=== PATIENT | male | born 1940 | race American Indian/Alaskan Native ===

== ENCOUNTER 2018-02-09 09:31 | Inpatient (IN) | payer MEDICARE, BC ==
[2018-02-09] MEDS ORDERED: Oxycodone/Acetaminophen 5/325 mg Tab PO STA (10:01)
--- NOTE | 2018-02-09 11:22 | ED PDOC ---
Arrival/HPI - General Chief Complaint: Lower Extremity Problem/Injury Time Seen by Provider: 02/09/18 09:39 Historian: Patient - History of Present Illness Narrative History of Present Illness (Text): 02/09/18 10:43 77 year old male, with past medical history of renal failure on hemodialysis (), presents to the Emergency department accompanied by daughter complaining of bilateral leg discomfort since today. Daughter states patient had his last dialysis on Monday and was scheduled for his next dialysis appointment on Monday. However, due to holidays and lack of availability, patient was rescheduled for dialysis today and tomorrow. Daughter states, patient did not receive his dialysis yet and has been feeling unwell since Monday. As per daughter, patient is mildly different from baseline and has been complaining of bilateral leg pain, prompting her to present patient to the ED for medical evaluation. Patient informs visiting Dr. Alves for bilateral lower extremity peripheral vascular disease. Patient denies any other associated somatic complaints. Patient denies any fever, chills, nausea, vomiting, diarrhea, abdominal pain, chest pain, shortness of breath, back pain, neck pain or any other complaints. Patient denies any recent changes to his medications. PMD: Dr. Wing Sole Molding Machine Operator: Dr. Palmer Analysis Specialist: Dr. Hinton Time/Duration: < week Symptom Onset: Gradual Symptom Course: Unchanged Activities at Onset: Light Context: Home Past Medical History - Provider Review Nursing Documentation Reviewed: Yes - Cardiac Hx Hypertension: Yes Hx Pacemaker: No - Neurological Hx Paralysis: No - Renal Hx Dialysis: Yes () - Hematological/Oncological Hx Blood Transfusions: Yes Hx Blood Transfusion Reaction: No - Musculoskeletal/Rheumatological Hx Musculoskeletal Disorders: Yes - Psychiatric Hx Emotional Abuse: No Hx Physical Abuse: No Hx Substance Use: No - Anesthesia Hx Anesthesia Reactions: No Hx Malignant Hyperthermia: No - Suicidal Assessment Feels Threatened In Home Enviroment: No Family/Social History - Physician Review Nursing Documentation Reviewed: Yes Family/Social History: Unknown Family HX Smoking Status: Never Smoked Hx Alcohol Use: Yes (OCC) Frequency of alcohol use: Socially Hx Substance Use: No Allergies/Home Meds Allergies/Adverse Reactions: Allergies No Known Allergies Allergy (Verified 02/09/18 09:55) Home Medications: Home Meds Medication Instructions Recorded Confirmed Amlodipine Besylate 10 mg PO DAILY 08/19/13 08/19/13 Aspirin [Aspir 81] 81 mg PO DAILY 08/19/13 08/19/13 Carvedilol 12.5 mg PO BID 08/19/13 08/20/13 Cinacalcet [Sensipar] 30 mg PO HS 08/19/13 08/20/13 Multivitamin9 [Triphrocaps] 1 sgl PO DAILY 08/19/13 08/20/13 Pioglitazone HCl 45 mg PO DAILY 08/19/13 08/20/13 Ramipril 5 mg PO DAILY 08/19/13 08/20/13 Sevelamer [Renagel] 800 mg PO TID 08/19/13 08/20/13 Atorvastatin [Lipitor] 40 mg PO DAILY 08/20/13 08/20/13 Calcitriol 0.25 mcg PO DAILY 08/20/13 08/20/13 Epoetin Jaxon [Procrit] 40,000 unit IJ SAT 08/20/13 08/20/13 Loratadine [Claritin Reditabs] 5 mg PO DAILY 08/20/13 08/20/13 Nicotine 21 mg/24 hr [Nicoderm Cq] 1 patch SAT 08/20/13 08/20/13 Quinine Sulfate 324 mg PO DAILY 08/20/13 08/20/13 Review of Systems - Physician Review All systems were reviewed & negative as marked: Yes - Review of Systems Constitutional: absent: Fevers Respiratory: absent: SOB, Cough Cardiovascular: absent: Chest Pain, GUERRA Gastrointestinal: absent: Abdominal Pain, Diarrhea, Nausea, Vomiting Musculoskeletal: Other (Bilateral leg discomfort). absent: Back Pain, Neck Pain Skin: absent: Rash Neurological: absent: Headache, Dizziness Psychiatric: absent: Anxiety Physical Exam Vital Signs Reviewed: Yes Vital Signs Temp Pulse Resp Pulse Ox 02/09/18 09:50 97.8 F 99 H 18 99 Temperature: Afebrile Blood Pressure: Normal Pulse: Tachycardic Respiratory Rate: Normal Appearance: Positive for: Well-Appearing, Non-Toxic, Comfortable Pain Distress: None Mental Status: Positive for: Alert and Oriented X 3 - Systems Exam Head: Present: Atraumatic, Normocephalic Pupils: Present: PERRL Extroacular Muscles: Present: EOMI Conjunctiva: Present: Normal Mouth: Present: Moist Mucous Membranes Neck: Present: Normal Range of Motion Respiratory/Chest: Present: Clear to Auscultation, Good Air Exchange. No: Respiratory Distress, Accessory Muscle Use Cardiovascular: Present: Regular Rate and Rhythm, Normal S1, S2. No: Murmurs Abdomen: No: Tenderness, Distention, Peritoneal Signs Back: Present: Normal Inspection Upper Extremity: Present: Other (Fistula noted to left arm with palpable thrill). No: Cyanosis, Edema Lower Extremity: Present: Edema (2+ pitting edema bilaterally. Shiny taut skin noted bilaterally consistent with peripheral vascular disease.), Other (healed grade 1 ulcer noted to medial proximal freeman. ) Neurological: Present: GCS=15, CN II-XII Intact, Speech Normal Skin: Present: Warm, Dry, Normal Color. No: Rashes Psychiatric: Present: Alert, Oriented x 3, Normal Insight, Normal Concentration Medical Decision Making ED Course and Treatment: 02/09/18 10:43 Impression: 77 year old male presents to the Emergency department to address missed dialysis and bilateral leg discomfort. Plan: -- VBG -- Labs -- Chest X-ray -- Oxycodone -- Toradol -- Blood Culture -- US lower extremity -- Reassess and disposition Prior Visits: Notes and results from previous visits were reviewed. Progress Notes: 02/09/18 12:34 Discussed case with nursing staff at the dialysis center, who are in process of faxing patient information. Nursing staff informs unsuccessful contact with caser up. Will inform family. 02/09/18 13:[address] Wing, who is aware and agrees with ED management plan, requests patient to be admitted under Dr. Sinha's service. 02/09/18 13:[address] Colon(covering for Dr. Sinha) who states she will speak to Dr. Forde(nephrology) and call back with an updated plan on accepting the admission. - RAD Interpretation Narrative RAD Interpretations (Text): 02/09/18 12:35 Chest X-ray reviewed by radiologist, shows: FINDINGS: LUNGS: Clear. PLEURA: No pneumothorax or pleural fluid seen. CARDIOVASCULAR: Aortic calcifications moderate cardiomegaly. External pacer or defibrillator device in place OSSEOUS STRUCTURES: No significant abnormalities. VISUALIZED UPPER ABDOMEN: Normal. OTHER FINDINGS: None. IMPRESSION: No active disease. Radiology Orders: 02/09/18 10:43 CHEST PORTABLE [RAD] Stat 02/09/18 10:45 DUPLEX LOWER EXTRM VEIN BILAT [US] Stat Contact Acid Plant Operator Helper: Radiologist - EKG Interpretation EKG Interpretation (Text): 02/09/18 10:45 EKG reviewed by me, shows NSR @88bpm. LVH. Inverted t waves v4-v6. Prolonged QT. Interpreted by ED Physician: Yes Type: 12 lead EKG - Medication Orders Current Medication Orders: Discontinued Medications Ketorolac Tromethamine (Toradol) 15 mg IVP STAT STA Stop: 02/09/18 10:49 - Scribe Statement The provider has reviewed the documentation as recorded by the Scribe Malia Wood. All medical record entries made by the Scribe were at my direction and personally dictated by me. I have reviewed the chart and agree that the record accurately reflects my personal performance of the history, physical exam, medical decision making, and the department course for this patient. I have also personally directed, reviewed, and agree with the discharge instructions and disposition. Disposition/Present on Arrival - Present on Arrival History of DVT/PE: No History of Uncontrolled Diabetes: No Urinary Catheter: No History of Decub. Ulcer: No History Surgical Site Infection Following: None - Disposition
[2018-02-09 11:34] LABS: BASO # 0.03 K/mm3 (0.0-2.0); BASO % 0.4 % (0.0-3.0); EOS # 0.1 (0.0-0.7); EOS % 1.5 % (1.5-5.0); GRAN # 5.03 (1.4-6.5); GRAN % 70.5 % (50.0-68.0); HEMOGLOBIN 11.9 g/dL (14.0-18.0); LYMPH # 1.2 (1.2-3.4); LYMPH % 16.4 % (22.0-35.0); MEAN CELL VOLUME 90.2 fl (80.0-105.0); MEAN CORPUSCULAR HEMOGLOBIN 31.6 pg (25.0-35.0); MEAN PLATELET VOLUME 10.3 fl (7.0-11.0); MONO # 0.8 (0.1-0.6); MONO % 11.2 % (1.0-6.0); RBC 3.77 10^6/uL (3.5-6.1); RED CELL DISTRIBUTION WIDTH 18.2 % (11.5-14.5); WHITE BLOOD COUNT 7.1 10^3/uL (4.5-11.0)
[2018-02-09 11:35] LABS: VENOUS BLOOD GAS BASE EXCESS 3.5 mmol/L (0.0-2.0); VENOUS BLOOD GAS PO2 41 mm/Hg (30-55)
[2018-02-09 11:47] LABS: INR 1.75; PARTIAL THROMBOPLASTIN TIME 31.2 Seconds (25.1-36.5); PROTHROMBIN TIME 20.4 SECONDS (9.4-12.5)
--- NOTE | 2018-02-09 12:30 | RAD ---
Date of service: 02/09/2018 PROCEDURE: CHEST RADIOGRAPH, 1 VIEW HISTORY: pre dialysis COMPARISON: None available. FINDINGS: LUNGS: Clear. PLEURA: No pneumothorax or pleural fluid seen. CARDIOVASCULAR: Aortic calcifications moderate cardiomegaly. External pacer or defibrillator device in place OSSEOUS STRUCTURES: No significant abnormalities. VISUALIZED UPPER ABDOMEN: Normal. OTHER FINDINGS: None. IMPRESSION: No active disease.
[2018-02-09 12:38] LABS: ALB/GLOB RATIO 1.1 (1.1-1.8); ALBUMIN 3.7 g/dL (3.0-4.8); CALCIUM 8.2 mg/dL (8.4-10.5)
[2018-02-09 12:46] LABS: TROPONIN I 0.03 ng/mL
[2018-02-09 19:25] VITALS: BMI 29.5
--- NOTE | 2018-02-10 07:34 | CARD ---
APPROVED REPORT Date of service: 02/09/2018 EKG Measurement Heart [id number] <Conclusion> Sinus rhythm with 1 PVC STTW changes c/w ischemia, new c/w ECG 08/20/13 IVCD LVH Prolonged QTc
[2018-02-10 10:07] LABS: BASO # 0.03 K/mm3 (0.0-2.0); BASO % 0.5 % (0.0-3.0); EOS # 0.1 (0.0-0.7); EOS % 2.1 % (1.5-5.0); GRAN # 4.11 (1.4-6.5); GRAN % 66.7 % (50.0-68.0); HEMOGLOBIN 11.6 g/dL (14.0-18.0); LYMPH % 15.9 % (22.0-35.0); MEAN CELL VOLUME 90.3 fl (80.0-105.0); MEAN CORPUSCULAR HEMOGLOBIN 31.2 pg (25.0-35.0); MEAN CORPUSCULAR HGB CONC 34.5 g/dl (31.0-37.0); MONO # 0.9 (0.1-0.6); MONO % 14.8 % (1.0-6.0); RBC 3.72 10^6/uL (3.5-6.1); RED CELL DISTRIBUTION WIDTH 18.1 % (11.5-14.5); WHITE BLOOD COUNT 6.2 10^3/uL (4.5-11.0)
[2018-02-10 10:57] LABS: CALCIUM 8.3 mg/dL (8.4-10.5)
[2018-02-10] MEDS ORDERED: QUININE SULFATE 324 MG PO SCH (11:30)
[2018-02-10] MEDS ORDERED: PIOGLITAZONE HCL 45 MG PO SCH (11:30)
[2018-02-10] MEDS ORDERED: CALCITRIOL 0.25 MCG PO SCH (11:30)
[2018-02-10] MEDS ORDERED: RAMIPRIL 5 MG PO SCH (11:30)
--- NOTE | 2018-02-10 21:05 | HP ---
DATE OF EXAM: 02/09/2018 HISTORY OF PRESENT ILLNESS: Mr. Caro is a 77-year-old male presented to the ED because he missed the hemodialysis at an outpatient center. Also complaining of left leg pain for 1 day. Doppler done in the ED of left lower extremity, preliminary result is negative for DVT. He also has peripheral arterial disease, sees Dr. Alves in the outpatient clinic. Denies any fever. No chest pain. No cough with expectoration. No mental status changes. Unable to ambulate because of the left flank pain. PAST MEDICAL HISTORY: Hypertension; end-stage renal disease, on hemodialysis; and peripheral vascular disease. PAST SURGICAL HISTORY: None. FAMILY HISTORY: Noncontributory. PERSONAL HISTORY: Never smoked. No history of alcohol abuse. SOCIAL HISTORY: Lives at home. ALLERGIES: NO KNOWN DRUG ALLERGIES. HOME MEDICATIONS: Amlodipine 10 mg daily, aspirin 81 mg daily, Coreg 12.5 mg p.o. b.i.d., Sensipar 30 mg p.o. at bedtime, Ramipril 5 mg daily, Renagel 800 mg p.o. t.i.d., Lipitor 40 mg daily, calcitriol 0.25 mg p.o. daily, nicotine patch and quinine sulfate 324 mg daily. REVIEW OF SYSTEMS: As per HPI. Rest of 12-point review of systems reviewed negative. PHYSICAL EXAMINATION: GENERAL: Comfortable in bed in no acute distress. VITAL SIGNS: Temperature 97.8, heart rate 99 per minute, respiratory rate 18 per minute, and oxygen saturation 99% on room air. HEENT: Mucosa pale. NECK: No lymphadenopathy. CHEST: Air entry present and equal bilaterally. No added sounds. CARDIOVASCULAR: S1 and S2 normal. No murmur. No gallop. ABDOMEN: Soft and nontender. No hepatosplenomegaly. EXTREMITIES: Left leg swelling present, 1+ edema, calf tenderness present. The right lower extremity, no edema. DIAGNOSTIC DATA: Chest x-ray, no active disease. EKG, normal sinus rhythm at 88 beats per minute. Duplex lower extremity preliminary, no DVT. LABORATORY DATA: White count 7.1, hemoglobin 11.9, hematocrit 34, and platelet count 268,000. Sodium 129, potassium 4, creatinine 8.3, calcium 8.2, and bilirubin 0.9. ASSESSMENT: 1. End-stage renal disease, on hemodialysis. 2. Anemia. 3. Hypertension. 4. Left leg swelling. PLAN: Doppler preliminary negative for DVT. We will give prophylactic doses of heparin 5000 b.i.d. for DVT prophylaxis. No signs of infection. He will be hemodialyzed today and discussed with the hemodialysis nurse. Discussed with Dr. Forde. Discussed with the ED attending. Lipitor 40 mg daily, aspirin 81 mg daily, Coreg 12.5 mg p.o. b.i.d., Sensipar 30 mg p.o. at bedtime, Claritin 5 mg daily, Actos 30 mg daily, Altace 5 mg daily, Renagel 800 mg p.o. t.i.d., and heparin 5000 b.i.d. for DVT prophylaxis. Radha Colon MD
--- NOTE | 2018-02-10 21:16 | PN ---
DATE: 02/10/2018 SUBJECTIVE: He is comfortable in bed, in no acute distress. Complaining of left leg pain. He is able to ambulate in the room, but has difficulty due to pain in the left leg. No fever. No cough with expectoration. No events overnight. He was hemodialyzed yesterday. PHYSICAL EXAMINATION: GENERAL: Comfortable in bed, in no acute distress. VITAL SIGNS: Temperature 98.3, heart rate 94 per minute, blood pressure 118/72, respiratory rate 20 per minute, and oxygen saturation 95% on room air. HEENT: Pallor positive. NECK: No lymphadenopathy. CHEST: Air entry present and equal bilaterally. No added sounds. CARDIOVASCULAR: S1 and S2 normal. No murmur. No gallop. ABDOMEN: Soft and nontender. No hepatosplenomegaly. EXTREMITIES: Left extremity edema present 1+ calf tenderness present. LABORATORY DATA: Sodium 134, potassium 3.9, creatinine 5.9, and calcium 8.3. White count 6.2, hemoglobin 11.6, hematocrit 33.6, and platelet 267,000. ASSESSMENT: 1. End-stage renal disease, on hemodialysis. 2. Anemia. 3. Left leg swelling. 4. Peripheral arterial disease. PLAN: Heparin 5000 subcutaneously b.i.d., preliminary negative for DVT in left leg. He was hemodialyzed yesterday also and today as per Dr. Forde's order. Continue aspirin 81 mg daily, Lipitor 40 mg daily, Norvasc 10 mg daily, Coreg 12.5 mg p.o. b.i.d., Sensipar 30 mg at bedtime, Claritin 5 mg daily, Renagel 800 mg p.o. t.i.d., Altace 5 mg daily, and Actos 15 mg daily. We will get TCU evaluation for gait improvement. Radha Colon MD MTDD
[2018-02-10] MEDS ORDERED: Levalbuterol 0.63 MG/3 ML Inhal Soln UD IH STA (21:18)
[2018-02-10 22:15] LABS: CALCIUM 7.7 mg/dL (8.4-10.5)
[2018-02-10 22:19] LABS: TROPONIN I 0.04 ng/mL
[2018-02-10 22:42] LABS: FREE T4 1.49 ng/dL (0.78-2.19)
[2018-02-11 00:30] VITALS: RESP 20
--- NOTE | 2018-02-11 09:40 | CP.PCM.PN ---
Subjective - Date & Time of Evaluation Date of Evaluation: 02/11/18 Time of Evaluation: 09:30 - Subjective Subjective: SUBJECTIVE: He is comfortable in bed, in no acute distress. Complaining of left leg pain. He is able to ambulate in the room, but has difficulty due to pain in the left leg. No fever. No cough with expectoration. No events overnight. He was hemodialyzed yesterday. Doppler prelim is negative for DVT. review of systems : as per subjective, rest 12 point review negative. PHYSICAL EXAMINATION: GENERAL: Comfortable in bed, in no acute distress. VITAL SIGNS: reviewed. HEENT: Pallor positive. NECK: No lymphadenopathy. CHEST: Air entry present and equal bilaterally. No added sounds. CARDIOVASCULAR: S1 and S2 normal. No murmur. No gallop. ABDOMEN: Soft and nontender. No hepatosplenomegaly. EXTREMITIES: Left extremity edema present 1+ , calf tenderness present. LABORATORY DATA: Sodium 134, potassium 3.9, creatinine 5.9, and calcium 8.3. White count 6.2, hemoglobin 11.6, hematocrit 33.6, and platelet 267,000. ASSESSMENT: 1. End-stage renal disease, on hemodialysis. 2. Anemia. 3. Left leg swelling. 4. Peripheral arterial disease. PLAN: Heparin 5000 subcutaneously b.i.d., preliminary negative for DVT in left leg. He was hemodialyzed yesterday . Continue aspirin 81 mg daily, Lipitor 40 mg daily, Norvasc 10 mg daily, Coreg 12.5 mg p.o. b.i.d., Sensipar 30 mg at bedtime, Claritin 5 mg daily, Renagel 800 mg p.o. t.i.d., Altace 5 mg daily, and Actos 15 mg daily. We will get TCU evaluation for gait improvement pending. Blood counts stable. lytes normal. Radha Colon MD Objective - Vital Signs/Intake and Output Vital Signs (last 24 hours): Temp Pulse Resp BP Pulse Ox 98.0 F 81 20 108/65 98 02/11/18 06:00 02/11/18 06:00 02/11/18 06:00 02/11/18 06:00 02/11/18 06:00 Intake and Output: 02/11/18 02/11/18 06:59 18:59 Intake Total 240 Balance 240 - Medications Medications: Current Medications Amlodipine Besylate (Norvasc) 10 mg PO DAILY [facility] Last Admin: 02/10/18 14:02 Dose: 10 mg Aspirin (Ecotrin) 81 mg PO DAILY [facility] Last Admin: 02/10/18 14:04 Dose: 81 mg Atorvastatin Calcium (Lipitor) 40 mg PO DAILY [facility] Last Admin: 02/10/18 14:03 Dose: 40 mg Calcitriol (Rocaltrol) 0.25 mcg PO DAILY [facility] Carvedilol (Coreg) 12.5 mg PO BID [facility] Last Admin: 02/10/18 17:39 Dose: 12.5 mg Cinacalcet (Sensipar) 30 mg PO HS [facility] Last Admin: 02/10/18 21:57 Dose: 30 mg Heparin Sodium (Porcine) (Heparin) 5,000 units SC Q12 [facility]; Protocol Last Admin: 02/10/18 21:57 Dose: 5,000 units Loratadine (Claritin) 5 mg PO DAILY [facility] Nicotine (Nicoderm Cq) 1 patch TD SAT [facility] Non-Formulary Medication (Quinine Sulfate [Quinine Sulfate]) 324 mg PO DAILY [facility] Pioglitazone HCl (Actos) 15 mg PO DAILY [facility] Ramipril (Altace) 5 mg PO DAILY [facility] Sevelamer HCl (Renagel) 800 mg PO TID [facility] Last Admin: 02/10/18 17:39 Dose: 800 mg Zolpidem Tartrate (Ambien) 5 mg PO HS PRN; Protocol PRN Reason: Insomnia Last Admin: 02/11/18 01:07 Dose: 5 mg - Labs Labs: 02/10/18 09:15 02/10/18 21:45 PT 20.4 SECONDS (9.4-12.5) H 02/09/18 11:20 INR 1.75 02/09/18 11:20 APTT 31.2 Seconds (25.1-36.5) 02/09/18 11:20
[2018-02-11] MEDS: QUININE SULFATE 324 MG PO SCH (09:51)
[2018-02-11] MEDS ORDERED: LORATADINE 5 MG PO SCH (10:00)
[2018-02-11] MEDS ORDERED: cefTRIAXone 1 gm 1 GM/100 ML BAG IVPB SCH (11:30)
[2018-02-11] MEDS ORDERED: Vancomycin 1gm in NS 250ml 1 GM/250 ML BAG IVPB STA (12:51)
--- NOTE | 2018-02-11 13:01 | CP.PCM.CON ---
<Endy Jarvis - Last Filed: 02/11/18 12:45> History of Present Illness - History of Present Illness History of Present Illness: Podiatry consult note for Dr. Cardenas 81 y/o M patient with PMH of ischemic heart disease, peripheral vascular disease and renal failure on hemodialysis seen and evaluated in the bedside for b/l LE edema. Patient states that he has the leg swelling since a month. He states that the size of the leg never change. He states that he follows up with for peripheral vascular disease in his LE. Patient denies any pain in his LE at this time. Patient denies any other pedal complaint at this time. He denies any recentF/N/V/C or SOB. PMH: peripheral vascular disease and renal failure on hemodialysis, ischemic heart disease. PSH: A-V fistula. Allergies: NKDA Social Hx: denies Smoking, EtOH use or illicite drug use Review of Systems - Review of Systems Review of Systems: As per HPI - Constitutional Constitutional: As Per HPI Past Patient History - Past Social History Smoking Status: Never Smoked - CARDIAC Hx Internal Defibrillator: Yes - PULMONARY Hx Respiratory Disorders: No - NEUROLOGICAL Hx Neurological Disorder: No - HEENT Hx HEENT Problems: No - RENAL Hx Chronic Kidney Disease: Yes Hx Dialysis: Yes - ENDOCRINE/METABOLIC Hx Endocrine Disorders: No - HEMATOLOGICAL/ONCOLOGICAL Hx Blood Disorders: No - INTEGUMENTARY Hx Dermatological Problems: No - MUSCULOSKELETAL/RHEUMATOLOGICAL Hx Musculoskeletal Disorders: No Hx Falls: No - GASTROINTESTINAL Hx Gastrointestinal Disorders: No - GENITOURINARY/GYNECOLOGICAL Hx Genitourinary Disorders: No - PSYCHIATRIC Hx Psychophysiologic Disorder: No - SURGICAL HISTORY Hx Surgeries: No - ANESTHESIA Hx Anesthesia Reactions: No Hx Malignant Hyperthermia: No Meds Allergies/Adverse Reactions: Allergies Allergy/AdvReac Type Severity Reaction Status Date / Time No Known Allergies Allergy Verified 02/09/18 09:55 - Medications Medications: Current Medications Amlodipine Besylate (Norvasc) 10 mg PO DAILY [facility] Last Admin: 02/11/18 09:45 Dose: 10 mg Aspirin (Ecotrin) 81 mg PO DAILY [facility] Last Admin: 02/11/18 09:45 Dose: 81 mg Atorvastatin Calcium (Lipitor) 40 mg PO DAILY [facility] Last Admin: 02/11/18 09:43 Dose: 40 mg Calcitriol (Rocaltrol) 0.25 mcg PO DAILY [facility] Last Admin: 02/11/18 09:43 Dose: 0.25 mcg Carvedilol (Coreg) 12.5 mg PO BID [facility] Last Admin: 02/11/18 09:44 Dose: 12.5 mg Cinacalcet (Sensipar) 30 mg PO HS [facility] Last Admin: 02/10/18 21:57 Dose: 30 mg Heparin Sodium (Porcine) (Heparin) 5,000 units SC Q12 [facility]; Protocol Last Admin: 02/11/18 09:47 Dose: 5,000 units Ceftriaxone Sodium (Rocephin 1 Gram Ivpb) 1 gm in 100 mls @ 100 mls/hr IVPB DAILY [facility]; Protocol Last Admin: 02/11/18 11:39 Dose: 100 mls/hr Loratadine (Claritin) 5 mg PO DAILY [facility] Last Admin: 02/11/18 09:44 Dose: 5 mg Nicotine (Nicoderm Cq) 1 patch TD SAT [facility] Non-Formulary Medication (Quinine Sulfate [Quinine Sulfate]) 324 mg PO DAILY [facility] Last Admin: 02/11/18 09:51 Dose: Not Given Pioglitazone HCl (Actos) 15 mg PO DAILY [facility] Last Admin: 02/11/18 09:43 Dose: 15 mg Ramipril (Altace) 5 mg PO DAILY [facility] Last Admin: 02/11/18 09:50 Dose: 5 mg Sevelamer HCl (Renagel) 800 mg PO TID [facility] Last Admin: 02/11/18 09:42 Dose: 800 mg Zolpidem Tartrate (Ambien) 5 mg PO HS PRN; Protocol PRN Reason: Insomnia Last Admin: 02/11/18 01:07 Dose: 5 mg Physical Exam - Constitutional Appears: Well, Non-toxic, No Acute Distress - Head Exam Head Exam: ATRAUMATIC, NORMOCEPHALIC - Extremities Exam Additional comments: Bilateral lower extremities exam VASC: faintly palpable pedal pulses bilaterally, Temp gradient warm to cool in b/l. Cap refill < 3 sec to all digits. +1 pitting edema noted to b/l LE up to the level of tibial tuberosity. No erythema noted. NEURO: Gross and protective sensations are intact DERM: +1 pitting edema noted to b/l LE up to the level of tibial tuberosity. No erythema noted. No clinical signs of active bacterial infection. Hypopigmented p ath around [id number] noted on the medial aspect of the Right leg. MSK: Mild pain on palpation of foot or legs bilaterally. Muscle power intact 5/5 to all groups b/l. Calf Squeeze doesn't elicit any pain b/l. - Neurological Exam Neurological exam: Alert, Oriented x3 - Psychiatric Exam Psychiatric exam: Normal Affect, Normal Mood Results - Vital Signs Recent Vital Signs: Last Vital Signs Temp 98.0 F 02/11/18 06:00 Pulse 85 02/11/18 10:00 Resp 20 02/11/18 06:00 BP 108/68 02/11/18 09:50 Pulse Ox 98 02/11/18 06:00 - Labs Result Diagrams: 02/10/18 09:15 02/10/18 21:45 Labs: Laboratory Results - last 24 hr 02/10/18 02/10/18 02/10/18 21:45 21:45 22:35 Sodium 132 Potassium 3.8 Chloride 92 L Carbon Dioxide 30 Anion Gap 13 BUN 27 H Creatinine 4.0 H Est GFR ( Amer) 18 Est GFR (Non-Af Amer) 15 Random Glucose 135 H Calcium 7.7 L Phosphorus 2.3 L Magnesium 2.0 2.1 Troponin I 0.04 D Free T4 1.49 TSH 3rd Generation 1.77 Assessment & Plan - Assessment and Plan (Free Text) Assessment: 77 y/o M patient patient seen and evaluated at the bedside for b/l LE edema 2ry to peripheral vascular disease. Plan: Patient seen and evaluated in the bedside with Dr. Cardenas Plan discussed with Dr. Cardenas Charts, labs and vitals reviewed; Afebrile, no leukocytosis GAYATRI/PVR; B/L popliteal, triforcation and tibial occlusive disease. (R: 0.80, L: 0.69) LE venous duplex; No signs of DVT Ordered Arterial Doppler b/l. Ordered Interventional vascular consult. B/L LE left undressed Podiatry will continue to follow up the patient while in house. Thank you for consulting podiatry service - Date & Time Date: 02/11/18 Time: 12:46 <Ayaan Cardenas - Last Filed: 02/12/18 10:17> Meds - Medications Medications: Current Medications Amlodipine Besylate (Norvasc) 10 mg PO DAILY [facility] Last Admin: 02/11/18 09:45 Dose: 10 mg Aspirin (Ecotrin) 81 mg PO DAILY [facility] Last Admin: 02/11/18 09:45 Dose: 81 mg Atorvastatin Calcium (Lipitor) 40 mg PO DAILY [facility] Last Admin: 02/11/18 09:43 Dose: 40 mg Calcitriol (Rocaltrol) 0.25 mcg PO DAILY [facility] Last Admin: 02/11/18 09:43 Dose: 0.25 mcg Carvedilol (Coreg) 12.5 mg PO BID [facility] Last Admin: 02/11/18 17:46 Dose: Not Given Cinacalcet (Sensipar) 30 mg PO HS [facility] Last Admin: 02/11/18 22:09 Dose: 30 mg Heparin Sodium (Porcine) (Heparin) 5,000 units SC Q12 [facility]; Protocol Last Admin: 02/11/18 22:09 Dose: 5,000 units Cefepime HCl (Maxipime 1gm) 1 gm in 100 mls @ 100 mls/hr IVPB Q24H [facility]; Protocol Stop: 02/20/18 13:01 Last Admin: 02/11/18 15:45 Dose: 100 mls/hr Loratadine (Claritin) 5 mg PO DAILY [facility] Last Admin: 02/11/18 09:44 Dose: 5 mg Multi-Ingredient Cream (Hydrocerin Cream) 0 ea TOP DAILY [facility] Nicotine (Nicoderm Cq) 1 patch TD SAT [facility] Non-Formulary Medication (Quinine Sulfate [Quinine Sulfate]) 324 mg PO DAILY [facility] Last Admin: 02/11/18 09:51 Dose: Not Given Pioglitazone HCl (Actos) 15 mg PO DAILY [facility] Last Admin: 02/11/18 09:43 Dose: 15 mg Ramipril (Altace) 5 mg PO DAILY [facility] Last Admin: 02/11/18 09:50 Dose: 5 mg Sevelamer HCl (Renagel) 800 mg PO TID [facility] Last Admin: 02/11/18 17:37 Dose: 800 mg Zolpidem Tartrate (Ambien) 5 mg PO HS PRN; Protocol PRN Reason: Insomnia Last Admin: 02/11/18 22:10 Dose: 5 mg Results - Vital Signs Recent Vital Signs: Last Vital Signs Temp 98 F 02/12/18 08:53 Pulse 79 02/12/18 08:53 Resp 20 02/12/18 08:53 BP 97/62 L 02/12/18 08:53 Pulse Ox 99 02/12/18 08:53 - Labs Result Diagrams: 02/10/18 09:15 02/10/18 21:45 Attending/Attestation - Attestation I have personally seen and examined this patient.: Yes I have fully participated in the care of the patient.: Yes I have reviewed all pertinent clinical information: Yes
[2018-02-11] MEDS ORDERED: Barium Sulfate Susp 2.1% w/v, 2.0% w/w 450 mL Bottle PO ONE (15:13)
[2018-02-11] MEDS: Cefepime 1gm in NS 100ml 1 GM/100 ML BAG IVPB SCH (15:45)
--- NOTE | 2018-02-11 20:26 | CON ---
DATE: 02/11/2018 The patient is in bed in #572, bed #2. CHIEF COMPLAINT: Left leg swelling and erythema times several days. HISTORY OF PRESENT ILLNESS: This is a 77-year-old male, who has hypertension; diabetes; chronic renal failure on hemodialysis on Tuesdays, and Saturdays; peripheral arterial disease; coronary artery disease; history of prostate cancer; history of anemia, who was admitted with diagnosis of left leg swelling and erythema x1 day duration. The patient denies any fevers, any chills. No nausea. No vomiting. No abdominal pain, diarrhea or constipation. No dysuria or frequency. REVIEW OF SYSTEMS: A 14-point review of systems is performed. PAST MEDICAL HISTORY: Significant for diabetes; hypertension; renal failure, on hemodialysis on Tuesdays, and Saturdays; anemia; prostate cancer; peripheral artery disease; and coronary artery disease. PAST SURGICAL HISTORY: Significant for cardiac catheterization with PCI, also with a pacemaker. The patient has had prostate seeding placed years ago and also with a left arm fistula. ALLERGIES: THE PATIENT HAS NO KNOWN ALLERGIES. MEDICATIONS AT HOME: Reviewed. PHYSICAL EXAMINATION: GENERAL: On exam, the patient is in bed. VITAL SIGNS: Temperature of 98, blood pressure is 108/60, respiratory rate of 18, heart rate of 85. HEENT: Unremarkable. NECK: Supple. LUNGS: Have decreased breath sounds. HEART: Normal S1, S2. ABDOMEN: Soft, nontender. No rebound. No guarding. No masses. EXTREMITIES: Examination of the left leg is warm to touch. There is edema, although both legs have edema, left leg appears to be more, and there is erythema and edema of the left leg, no break in the skin, no discharge. LABORATORY DATA: Laboratory examination reveals the patient's white count of 7.1, hemoglobin of 11, platelets of 268,000. Coagulation is noted. Chemistries reveal a BUN of 39, creatinine of 5.9. Troponin is 0.04. Chest x-ray is reported to be negative. Emergency room chart is reviewed. Dr. Colon's history and physical examination is noted. ASSESSMENT AND PLAN: A 77-year-old male with diabetes; hypertension; chronic renal failure, on hemodialysis on Tuesdays, and Saturdays; prostate cancer; peripheral arterial disease; coronary artery disease, now presenting with left leg cellulitis. We will treat the patient with vancomycin and Maxipime. Discontinue the ceftriaxone. We will also order a CT of the abdomen and pelvis to rule out any intra-abdominal pathology or pelvic pathology that may cause one-sided leg edema. The case was also discussed with the patient's on the phone extensively. We will make further recommendations upon availability of initial results. Pending pancultures and CT. Socrates Maldonado MD
[2018-02-12] MEDS ORDERED: Hydrocerin(120 gm) TOP SCH (10:00)
--- NOTE | 2018-02-12 10:26 | CP.PCM.PN ---
<Sudarshan Ramsey - Last Filed: 02/12/18 18:12> Subjective - Date & Time of Evaluation Date of Evaluation: 02/12/18 Time of Evaluation: 07:40 - Subjective Subjective: Progress Note for Dr. Sinha Service Patient seen and examined at bedside. No acute complaints this AM. Reports some shortness of breath when lying down, but still improved over presentation. Pending HD tomorrow, then discharge to [facility] for reconditioning (cannot go to TCU, as not inhouse dialysis pt). Objective - Vital Signs/Intake and Output Vital Signs (last 24 hours): Temp Pulse Resp BP Pulse Ox 98 F 79 20 97/62 L 99 02/12/18 08:53 02/12/18 08:53 02/12/18 08:53 02/12/18 08:53 02/12/18 08:53 Intake and Output: 02/12/18 02/12/18 06:59 18:59 Intake Total 0 Balance 0 - Medications Medications: Current Medications Amlodipine Besylate (Norvasc) 10 mg PO DAILY [facility] Last Admin: 02/11/18 09:45 Dose: 10 mg Aspirin (Ecotrin) 81 mg PO DAILY [facility] Last Admin: 02/11/18 09:45 Dose: 81 mg Atorvastatin Calcium (Lipitor) 40 mg PO DAILY [facility] Last Admin: 02/11/18 09:43 Dose: 40 mg Calcitriol (Rocaltrol) 0.25 mcg PO DAILY [facility] Last Admin: 02/11/18 09:43 Dose: 0.25 mcg Carvedilol (Coreg) 12.5 mg PO BID [facility] Last Admin: 02/11/18 17:46 Dose: Not Given Cinacalcet (Sensipar) 30 mg PO HS [facility] Last Admin: 02/11/18 22:09 Dose: 30 mg Heparin Sodium (Porcine) (Heparin) 5,000 units SC Q12 [facility]; Protocol Last Admin: 02/11/18 22:09 Dose: 5,000 units Cefepime HCl (Maxipime 1gm) 1 gm in 100 mls @ 100 mls/hr IVPB Q24H [facility]; Protocol Stop: 02/20/18 13:01 Last Admin: 02/11/18 15:45 Dose: 100 mls/hr Loratadine (Claritin) 5 mg PO DAILY [facility] Last Admin: 02/11/18 09:44 Dose: 5 mg Multi-Ingredient Cream (Hydrocerin Cream) 0 ea TOP DAILY [facility] Nicotine (Nicoderm Cq) 1 patch TD SAT [facility] Non-Formulary Medication (Quinine Sulfate [Quinine Sulfate]) 324 mg PO DAILY [facility] Last Admin: 02/11/18 09:51 Dose: Not Given Pioglitazone HCl (Actos) 15 mg PO DAILY [facility] Last Admin: 02/11/18 09:43 Dose: 15 mg Ramipril (Altace) 5 mg PO DAILY [facility] Last Admin: 02/11/18 09:50 Dose: 5 mg Sevelamer HCl (Renagel) 800 mg PO TID [facility] Last Admin: 02/11/18 17:37 Dose: 800 mg Zolpidem Tartrate (Ambien) 5 mg PO HS PRN; Protocol PRN Reason: Insomnia Last Admin: 02/11/18 22:10 Dose: 5 mg - Labs Labs: 02/10/18 09:15 02/10/18 21:45 PT 20.4 SECONDS (9.4-12.5) H 02/09/18 11:20 INR 1.75 02/09/18 11:20 APTT 31.2 Seconds (25.1-36.5) 02/09/18 11:20 - Constitutional Appears: Non-toxic, No Acute Distress - Head Exam Head Exam: ATRAUMATIC, NORMAL INSPECTION, NORMOCEPHALIC - Eye Exam Eye Exam: EOMI, Normal appearance. absent: Conjunctival injection, Scleral icterus Pupil Exam: absent: Irregular, Unequal - ENT Exam ENT Exam: Mucous Membranes Moist - Neck Exam Neck Exam: Full ROM - Respiratory Exam Respiratory Exam: Decreased Breath Sounds (mild decreased breath sounds in all colbert), NORMAL BREATHING PATTERN. absent: Accessory Muscle Use, Chest Wall Tenderness, Clear to Ausculation Bilateral, Rales, Rhonchi, Wheezes - Cardiovascular Exam Cardiovascular Exam: REGULAR RHYTHM, RRR, +S1, +S2. absent: Bradycardia, Tachycardia, JVD - GI/Abdominal Exam GI & Abdominal Exam: Soft, Normal Bowel Sounds. absent: Distended, Firm, Rigid, Tenderness, Diminished Bowel Sounds, Hyperactive Bowel Sounds, Hypoactive Bowel Sounds - Extremities Exam Extremities Exam: Pedal Edema (+1-2 pitting edema in bilateral edema from feet to mid-shins, +1 from mid-shins to knees). absent: Calf Tenderness, Tenderness - Back Exam Back Exam: absent: CVA tenderness (L), CVA tenderness (R) - Neurological Exam Additional comments: lethargic but arousable, afterwards awake and alert, oriented to self/location/year, following all commands appropriately, moving extremities spontaneously - Psychiatric Exam Psychiatric exam: Normal Affect, Normal Mood - Skin Skin Exam: Dry, Intact, Normal Color (except for some discoloration at distal bi lateral LE), Warm Assessment and Plan - Assessment and Plan (Free Text) Assessment: This is a 77 yo M with PMH of HTN, ischemic heart disease, peripheral vascular disease, and ESRD on HD who presented for bilateral leg discomfort and shortness of breath after missing a dialysis appointment. He is pending another round of HD tomorrow, and possible placement for [facility]. Plan: 1) Leg pain with hx of PVD -LE duplex negative for DVT on initial read, pending official report -non-palpable distal pedal pulses; as per IR, ABIs from early January are Right 0.8 and Left 0.69 No indication for angiography at this time as per IR -PT recs TCU for reconditioning/gait improvement, but as per CM, cannot go to TCU as he is an outside HD pt, so referring to [facility] 2) ESRD on HD -pending HD tomorrow, to return to prior schedule of //Mon -As per Nephro: hold phos-binders as Phos low, continue calcitriol, no need for ESAs as Hgb 11.8 Dispo: pending HD tomorrow, pending placement for [facility] Ppx: Heparin SC for DVT Patient reviewed and discussed with attending, Dr. Sinha <Rodrigo Sinha - Last Filed: 02/12/18 21:27> Objective - Vital Signs/Intake and Output Vital Signs (last 24 hours): Temp Pulse Resp BP Pulse Ox 98.1 F 83 20 101/65 99 02/12/18 16:31 02/12/18 18:00 02/12/18 16:31 02/12/18 16:31 02/12/18 16:31 Intake and Output: 02/12/18 02/13/18 18:59 06:59 Intake Total 1160 Balance 1160 - Medications Medications: Current Medications Aspirin (Ecotrin) 81 mg PO DAILY [facility] Last Admin: 02/12/18 11:08 Dose: 81 mg Atorvastatin Calcium (Lipitor) 40 mg PO DAILY [facility] Last Admin: 02/12/18 11:10 Dose: 40 mg Calcitriol (Rocaltrol) 0.25 mcg PO DAILY [facility] Last Admin: 02/12/18 11:11 Dose: 0.25 mcg Carvedilol (Coreg) 12.5 mg PO BID [facility] Last Admin: 02/12/18 17:55 Dose: 12.5 mg Heparin Sodium (Porcine) (Heparin) 5,000 units SC Q12 [facility]; Protocol Last Admin: 02/12/18 11:08 Dose: 5,000 units Heparin Sodium (Porcine) (Heparin) 2,000 units IVP [facility]TS [facility]; Protocol Cefepime HCl (Maxipime 1gm) 1 gm in 100 mls @ 100 mls/hr IVPB Q24H [facility]; Protocol Stop: 02/20/18 13:01 Last Admin: 02/12/18 13:09 Dose: 100 mls/hr Loratadine (Claritin) 5 mg PO DAILY [facility] Last Admin: 02/12/18 11:07 Dose: 5 mg Multi-Ingredient Cream (Hydrocerin Cream) 0 ea TOP DAILY [facility] Last Admin: 02/12/18 11:10 Dose: 1 applic Nicotine (Nicoderm Cq) 1 patch TD SAT [facility] Non-Formulary Medication (Quinine Sulfate [Quinine Sulfate]) 324 mg PO DAILY [facility] Last Admin: 02/12/18 11:10 Dose: Not Given Pioglitazone HCl (Actos) 15 mg PO DAILY [facility] Last Admin: 02/12/18 11:06 Dose: 15 mg Ramipril (Altace) 5 mg PO DAILY [facility] Last Admin: 02/12/18 11:07 Dose: 5 mg Vitamin B Complex/Vit C/Folic Acid (Nephro-Dionisio) 1 tab PO 0800 [facility] Zolpidem Tartrate (Ambien) 5 mg PO HS PRN; Protocol PRN Reason: Insomnia Last Admin: 02/11/18 22:10 Dose: 5 mg - Labs Labs: 02/10/18 09:15 02/10/18 21:45 PT 20.4 SECONDS (9.4-12.5) H 02/09/18 11:20 INR 1.75 02/09/18 11:20 APTT 31.2 Seconds (25.1-36.5) 02/09/18 11:20 Assessment and Plan - Assessment and Plan (Free Text) Plan: Pt seen and examined. I have reviewed the note of the medical manager and agree with it. I have discussed the assessment and plan with the resident. I have reviewed the patient's labs and medications. Pt with ESRD onHD. He has Renal on the case. Pt has gait dysfunction and will need [facility]. Heparin for DVT prophylaxsis.
[2018-02-12] MEDS: Hydrocerin(120 gm) TOP SCH (11:10)
[2018-02-12] MEDS: QUININE SULFATE 324 MG PO SCH (11:10)
--- NOTE | 2018-02-12 11:36 | CT ---
Date of service: 02/11/2018 PROCEDURE: CT Abdomen and Pelvis without intravenous contrast HISTORY: r/o pelvic path COMPARISON: None. TECHNIQUE: Technique. Contrast dose: Radiation dose: Total exam DLP = 819.7 mGy-cm. This CT exam was performed using one or more of the following dose reduction techniques: Automated exposure control, adjustment of the mA and/or kV according to patient size, and/or use of iterative reconstruction technique. FINDINGS: LOWER THORAX: Left pleural effusion. Cardiomegaly. LIVER: Unremarkable. No gross lesion or ductal dilatation. GALLBLADDER AND BILE DUCTS: Contracted gallbladder with gallstones. PANCREAS: Unremarkable. No gross lesion or ductal dilatation. SPLEEN: Unremarkable. ADRENALS: Unremarkable. No mass. KIDNEYS AND URETERS: Atrophic kidneys no hydronephrosis. No solid mass. VASCULATURE: Unremarkable. No aortic aneurysm. Diffuse vascular calcifications. BOWEL: Unremarkable. No obstruction. No gross mural thickening. APPENDIX: Unremarkable. Normal appendix. PERITONEUM: Upper abdominal and pelvic ascites. LYMPH NODES: Unremarkable. No enlarged lymph nodes. BLADDER: Unremarkable. REPRODUCTIVE: Unremarkable. BONES: Degenerative changes of the right hip. OTHER FINDINGS: None. IMPRESSION: Left pleural effusion. Ascites. A trophic kidneys. Gallstones with contracted gallbladder
[2018-02-12] MEDS: Cefepime 1gm in NS 100ml 1 GM/100 ML BAG IVPB SCH (13:09)
--- NOTE | 2018-02-12 14:08 | CP.PCM.CON ---
History of Present Illness - History of Present Illness History of Present Illness: Nephrology Consultation Note: Assessment: Stable missed HD, PVD, edema, pleural effusion with ascites Hypertensive Chronic Kidney Disease (I12.0) End stage renal disease (N18.6) dependence on hemodialysis (Z99.2) (TTS) via AVF Anemia (D64.9), Hyperphosphatemia (E83.39), Secondary Hyperparathyroidism (E21.1), HTN (I12.0), PVD, CAD Plan: No acute need for dialysis today. Will plan for dialysis tomorrow. Continue with Nephrovite 1 tab/day. PRBC as needed for anemia. not on UMU with dialysis as last Hb 11.6 hold phos binders, last phos level 2.3 Continue with calcitriol. hold sensipar as Ca on low side BP control with meds as ordered. Patient on RAAS nadia. hold norvasc as BP on low side Glycemic control, Dialysis consistent diet Further work up/management as per primary team Dose meds/antibiotics (if needed) for ESRD status. Avoid fleets enema/magnesium based laxatives. Thanks for allowing me to participate in care of your patient. Will follow patient with you. Please call if any Qs Dr Kurt Martinez Office: [phone] Chief Complaint;leg swelling HPI: Pt is a 77 M with hx of ESRD on hemodialysis (TTS) via AVF, last dialysis sat, chronic anemia, hyperphosphatemia, secondary hyperparathyroidism, PVD, CAD, hypertension presented with complaints of missed HD and leg swelling. pt underwent HD on monday and monday. evaluated by podiatry and also for IR for PVD. Renal consult requested for ESRD management. besides legs swelling, he feels in usual health. pt on HD x 5 years ROS: Cardiovascular: No chest pain. Pulmonary: No shortness of breath Gastrointestinal: denies abdominal pain No nausea. No vomiting. Genitourinary: No pain while urinating. Denies blood in urine. All other negative except as mentioned in HPI Physical Examination: General Appearance: Comfortable, in no acute respiratory distress, co-operative . Vitals reviewed and noted as below Head; Atraumatic, normocephalic ENT: no ulcers no thrush. Tongue is midline. Oropharynx: no rash or ulcers. EYES: Pupils are equal, round and reactive to light accommodation. Eye muscles and extraocular movement intact. Sclera is anicteric. Neck; supple no lymphadenopathy, no thyromegaly or bruit Lungs: Normal respiratory rate/effort. Breath sounds bilateral equal and clear Heart: Normal rate. s1s2 normal. No rub or gallop. Extremities: 1+ edema. No varicose veins Neurological: Patient is alert, awake and oriented to person, place and time. No focal deficit. Strength bilateral appropriate and equal Skin: Warm and dry. Normal turgor. No rash. Palpitation: Normal elasticity for age Abdomen: Abdomen is soft. Bowel sounds +. There is no abdominal tenderness, no guarding/rigidity or organomegaly Psych: normal insight and normal affect/mood MSK: no joint tenderness or swelling. Digits and nails normal, no deformity : kidney or bladder not palpable Access: AVF Labs/imaging reviewed. Past medical history, past surgical history, family history, social history, allergy reviewed and noted as below Family Hx: no hx of CKD. Non contributory Past Patient History - Past Social History Smoking Status: Never Smoked - CARDIAC Hx Hypertension: Yes - PULMONARY Hx Respiratory Disorders: No - NEUROLOGICAL Hx Neurological Disorder: No - HEENT Hx HEENT Problems: No - RENAL Hx Chronic Kidney Disease: Yes Hx Dialysis: Yes - ENDOCRINE/METABOLIC Hx Endocrine Disorders: No - HEMATOLOGICAL/ONCOLOGICAL Hx Blood Disorders: No - INTEGUMENTARY Hx Dermatological Problems: No - MUSCULOSKELETAL/RHEUMATOLOGICAL Hx Musculoskeletal Disorders: No Hx Falls: No - GASTROINTESTINAL Hx Gastrointestinal Disorders: No - GENITOURINARY/GYNECOLOGICAL Hx Genitourinary Disorders: No - PSYCHIATRIC Hx Psychophysiologic Disorder: No - SURGICAL HISTORY Hx Surgeries: No - ANESTHESIA Hx Anesthesia Reactions: No Hx Malignant Hyperthermia: No Meds Allergies/Adverse Reactions: Allergies Allergy/AdvReac Type Severity Reaction Status Date / Time No Known Allergies Allergy Verified 02/09/18 09:55 - Medications Medications: Current Medications Aspirin (Ecotrin) 81 mg PO DAILY [facility] Last Admin: 02/12/18 11:08 Dose: 81 mg Atorvastatin Calcium (Lipitor) 40 mg PO DAILY [facility] Last Admin: 02/12/18 11:10 Dose: 40 mg Calcitriol (Rocaltrol) 0.25 mcg PO DAILY [facility] Last Admin: 02/12/18 11:11 Dose: 0.25 mcg Carvedilol (Coreg) 12.5 mg PO BID [facility] Last Admin: 02/12/18 11:08 Dose: 12.5 mg Heparin Sodium (Porcine) (Heparin) 5,000 units SC Q12 [facility]; Protocol Last Admin: 02/12/18 11:08 Dose: 5,000 units Heparin Sodium (Porcine) (Heparin) 2,000 units IVP TTS [facility]; Protocol Cefepime HCl (Maxipime 1gm) 1 gm in 100 mls @ 100 mls/hr IVPB Q24H [facility]; Protocol Stop: 02/20/18 13:01 Last Admin: 02/12/18 13:09 Dose: 100 mls/hr Loratadine (Claritin) 5 mg PO DAILY [facility] Last Admin: 02/12/18 11:07 Dose: 5 mg Multi-Ingredient Cream (Hydrocerin Cream) 0 ea TOP DAILY [facility] Last Admin: 02/12/18 11:10 Dose: 1 applic Nicotine (Nicoderm Cq) 1 patch TD SAT [facility] Non-Formulary Medication (Quinine Sulfate [Quinine Sulfate]) 324 mg PO DAILY [facility] Last Admin: 02/12/18 11:10 Dose: Not Given Pioglitazone HCl (Actos) 15 mg PO DAILY [facility] Last Admin: 02/12/18 11:06 Dose: 15 mg Ramipril (Altace) 5 mg PO DAILY [facility] Last Admin: 02/12/18 11:07 Dose: 5 mg Vitamin B Complex/Vit C/Folic Acid (Nephro-Dionisio) 1 tab PO 0800 [facility] Zolpidem Tartrate (Ambien) 5 mg PO HS PRN; Protocol PRN Reason: Insomnia Last Admin: 02/11/18 22:10 Dose: 5 mg Results - Vital Signs Recent Vital Signs: Last Vital Signs Temp 98 F 02/12/18 08:53 Pulse 79 02/12/18 08:53 Resp 20 02/12/18 08:53 BP 112/64 02/12/18 11:11 Pulse Ox 99 02/12/18 08:53 - Labs Result Diagrams: 02/10/18 09:15 02/10/18 21:45
--- NOTE | 2018-02-12 14:09 | CP.PCM.PN ---
Subjective - Date & Time of Evaluation Date of Evaluation: 02/12/18 Time of Evaluation: 09:55 - Subjective Subjective: Feels better, no fevers. No increased pain in the legs. Objective - Vital Signs/Intake and Output Vital Signs (last 24 hours): Temp Pulse Resp BP Pulse Ox 98 F 79 20 112/64 99 02/12/18 08:53 02/12/18 08:53 02/12/18 08:53 02/12/18 11:11 02/12/18 08:53 Intake and Output: 02/12/18 02/12/18 06:59 18:59 Intake Total 0 Balance 0 - Medications Medications: Current Medications Aspirin (Ecotrin) 81 mg PO DAILY [facility] Last Admin: 02/12/18 11:08 Dose: 81 mg Atorvastatin Calcium (Lipitor) 40 mg PO DAILY [facility] Last Admin: 02/12/18 11:10 Dose: 40 mg Calcitriol (Rocaltrol) 0.25 mcg PO DAILY [facility] Last Admin: 02/12/18 11:11 Dose: 0.25 mcg Carvedilol (Coreg) 12.5 mg PO BID [facility] Last Admin: 02/12/18 11:08 Dose: 12.5 mg Heparin Sodium (Porcine) (Heparin) 5,000 units SC Q12 [facility]; Protocol Last Admin: 02/12/18 11:08 Dose: 5,000 units Heparin Sodium (Porcine) (Heparin) 2,000 units IVP TTS [facility]; Protocol Cefepime HCl (Maxipime 1gm) 1 gm in 100 mls @ 100 mls/hr IVPB Q24H [facility]; Protocol Stop: 02/20/18 13:01 Last Admin: 02/12/18 13:09 Dose: 100 mls/hr Loratadine (Claritin) 5 mg PO DAILY [facility] Last Admin: 02/12/18 11:07 Dose: 5 mg Multi-Ingredient Cream (Hydrocerin Cream) 0 ea TOP DAILY [facility] Last Admin: 02/12/18 11:10 Dose: 1 applic Nicotine (Nicoderm Cq) 1 patch TD SAT [facility] Non-Formulary Medication (Quinine Sulfate [Quinine Sulfate]) 324 mg PO DAILY [facility] Last Admin: 02/12/18 11:10 Dose: Not Given Pioglitazone HCl (Actos) 15 mg PO DAILY [facility] Last Admin: 02/12/18 11:06 Dose: 15 mg Ramipril (Altace) 5 mg PO DAILY [facility] Last Admin: 02/12/18 11:07 Dose: 5 mg Vitamin B Complex/Vit C/Folic Acid (Nephro-Dionisio) 1 tab PO 0800 [facility] Zolpidem Tartrate (Ambien) 5 mg PO HS PRN; Protocol PRN Reason: Insomnia Last Admin: 02/11/18 22:10 Dose: 5 mg - Labs Labs: 02/10/18 09:15 02/10/18 21:45 PT 20.4 SECONDS (9.4-12.5) H 02/09/18 11:20 INR 1.75 02/09/18 11:20 APTT 31.2 Seconds (25.1-36.5) 02/09/18 11:20 - Constitutional Appears: Chronically Ill - Head Exam Head Exam: NORMAL INSPECTION - Respiratory Exam Respiratory Exam: Decreased Breath Sounds - Cardiovascular Exam Cardiovascular Exam: +S1, +S2 - GI/Abdominal Exam GI & Abdominal Exam: Soft. absent: Tenderness - Extremities Exam Additional comments: decreased swelling of left leg Assessment and Plan - Assessment and Plan (Free Text) Plan: Assessment left leg cellulitis, slowly improving ESRD on HD CAD S/P PCI, S/P pacemaker placement PAD prostate cancer DM Plan continue intermittent Vancomycin and Cefepime day 2 and will continue to monitor clinical response
--- NOTE | 2018-02-12 14:17 | CP.PCM.PN ---
<SonalJennifer garcia - Last Filed: 02/12/18 14:13> Subjective - Date & Time of Evaluation Date of Evaluation: 02/12/18 Time of Evaluation: 14:13 - Subjective Subjective: Podiatry progress note for Dr. Alves 81 y/o male patient seen and evaluated at bedside for b/l LE edema. Patient denies any pain to his LE at this time. Patient denies any other pedal complaint at this time. He denies any recent F/N/V/C/SOB. Objective - Vital Signs/Intake and Output Vital Signs (last 24 hours): Temp Pulse Resp BP Pulse Ox 98 F 79 20 112/64 99 02/12/18 08:53 02/12/18 08:53 02/12/18 08:53 02/12/18 11:11 02/12/18 08:53 Intake and Output: 02/12/18 02/12/18 06:59 18:59 Intake Total 0 Balance 0 - Medications Medications: Current Medications Aspirin (Ecotrin) 81 mg PO DAILY [facility] Last Admin: 02/12/18 11:08 Dose: 81 mg Atorvastatin Calcium (Lipitor) 40 mg PO DAILY [facility] Last Admin: 02/12/18 11:10 Dose: 40 mg Calcitriol (Rocaltrol) 0.25 mcg PO DAILY [facility] Last Admin: 02/12/18 11:11 Dose: 0.25 mcg Carvedilol (Coreg) 12.5 mg PO BID [facility] Last Admin: 02/12/18 11:08 Dose: 12.5 mg Heparin Sodium (Porcine) (Heparin) 5,000 units SC Q12 [facility]; Protocol Last Admin: 02/12/18 11:08 Dose: 5,000 units Heparin Sodium (Porcine) (Heparin) 2,000 units IVP TTS [facility]; Protocol Cefepime HCl (Maxipime 1gm) 1 gm in 100 mls @ 100 mls/hr IVPB Q24H [facility]; Protocol Stop: 02/20/18 13:01 Last Admin: 02/12/18 13:09 Dose: 100 mls/hr Loratadine (Claritin) 5 mg PO DAILY [facility] Last Admin: 02/12/18 11:07 Dose: 5 mg Multi-Ingredient Cream (Hydrocerin Cream) 0 ea TOP DAILY [facility] Last Admin: 02/12/18 11:10 Dose: 1 applic Nicotine (Nicoderm Cq) 1 patch TD SAT [facility] Non-Formulary Medication (Quinine Sulfate [Quinine Sulfate]) 324 mg PO DAILY [facility] Last Admin: 02/12/18 11:10 Dose: Not Given Pioglitazone HCl (Actos) 15 mg PO DAILY [facility] Last Admin: 02/12/18 11:06 Dose: 15 mg Ramipril (Altace) 5 mg PO DAILY [facility] Last Admin: 02/12/18 11:07 Dose: 5 mg Vitamin B Complex/Vit C/Folic Acid (Nephro-Dionisio) 1 tab PO 0800 [facility] Zolpidem Tartrate (Ambien) 5 mg PO HS PRN; Protocol PRN Reason: Insomnia Last Admin: 02/11/18 22:10 Dose: 5 mg - Labs Labs: 02/10/18 09:15 02/10/18 21:45 PT 20.4 SECONDS (9.4-12.5) H 02/09/18 11:20 INR 1.75 02/09/18 11:20 APTT 31.2 Seconds (25.1-36.5) 02/09/18 11:20 - Constitutional Appears: Well, Non-toxic, No Acute Distress - Head Exam Head Exam: ATRAUMATIC, NORMOCEPHALIC - Extremities Exam Additional comments: Bilateral lower extremities exam VASC: faintly palpable pedal pulses bilaterally, Temp gradient warm to cool in b/l. Cap refill < 3 sec to all digits. +1 pitting edema noted to b/l LE NEURO: Gross and protective sensations are intact DERM: +1 pitting edema noted to b/l LE. No erythema noted. No clinical signs of active bacterial infection. Hypopigmentation noted to the anterior aspect of the right leg MSK: Muscle power intact 5/5 to all groups b/l. no pain with posterior calf squeeze - Neurological Exam Neurological Exam: Alert, Awake, Oriented x3 - Psychiatric Exam Psychiatric exam: Normal Affect, Normal Mood Assessment and Plan - Assessment and Plan (Free Text) Assessment: 77 y/o M patient patient seen and evaluated at the bedside for b/l LE edema 2ry to peripheral vascular disease. Plan: Patient seen and evaluated in the bedside with Dr. Alves Plan discussed with attending Charts, labs and vitals reviewed; Afebrile, no leukocytosis GAYATRI/PVR: B/L popliteal, triforcation and tibial occlusive disease. (R: 0.80, L: 0.69) LE venous duplex: No signs of DVT Ordered Arterial Doppler b/l- Pending Ordered Interventional vascular consult- recs appreciated B/L LE left undressed Ordered Eucerin lotion for application to bilateral lower extremities Podiatry will continue to follow patient while in house. <Sona Alves - Last Filed: 02/15/18 07:55> Objective - Vital Signs/Intake and Output Vital Signs (last 24 hours): Temp Pulse Resp BP Pulse Ox 98 F 89 20 90/50 L 95 02/13/18 08:41 02/13/18 14:00 02/13/18 08:41 02/13/18 08:41 02/13/18 08:41 - Labs Labs: 02/13/18 07:30 02/13/18 07:30 PT 20.4 SECONDS (9.4-12.5) H 02/09/18 11:20 INR 1.75 02/09/18 11:20 APTT 31.2 Seconds (25.1-36.5) 02/09/18 11:20 Attending/Attestation - Attestation I have personally seen and examined this patient.: Yes I have fully participated in the care of the patient.: Yes I have reviewed all pertinent clinical information, including history, physical exam and plan: Yes Notes (Text): 02/15/18 07:55 pt with severe PVD and on dialysis - wound has healed and remains so at this time; pending vascular consult
--- NOTE | 2018-02-12 18:22 | CON ---
DATE: 02/12/2018 CHIEF COMPLAINT/HISTORY OF PRESENT ILLNESS: Mr. Caro is an alert 77-year-old gentleman, who was admitted for lower extremity swelling and possible cellulitis. He has a history of end-stage renal disease and has been on dialysis for approximately 5 years. He has hypertension and coronary disease with a pacemaker placed. He has been followed recently by Dr. Alves for a superficial ulceration on the medial aspect of the distal right leg. This has essentially healed. Mr. Caro has a history of claudication for many years. He denies rest pain or ischemic ulceration/gangrene. His dialysis days are Tuesdays, , and Monday. An GAYATRI/PVR exam was done in early January. This revealed bilateral popliteal, trifurcation and tibial disease. His right GAYATRI is 0.80 and his left GAYATRI is 0.69. PHYSICAL EXAMINATION: EXTREMITIES: He has palpable femoral and popliteal pulses. His pedal pulses are not palpable. His feet are slightly cool/symmetric. Motor and light touch sensation are intact. ASSESSMENT AND PLAN: At the present time, I do not think there is an indication for angiography. His ulceration is essentially healed. He is not having significant rest pain. The case was discussed with Dr. Alves. Kelvin Cevallos MD MTDD
--- NOTE | 2018-02-13 07:20 | CP.PCM.PN ---
Objective - Vital Signs/Intake and Output Vital Signs (last 24 hours): Temp Pulse Resp BP Pulse Ox 98.1 F 81 20 101/65 99 02/12/18 16:31 02/13/18 05:08 02/12/18 16:31 02/12/18 16:31 02/12/18 16:31 Intake and Output: 02/13/18 02/13/18 06:59 18:59 Intake Total 1280 Balance 1280 - Medications Medications: Current Medications Aspirin (Ecotrin) 81 mg PO DAILY [facility] Last Admin: 02/12/18 11:08 Dose: 81 mg Atorvastatin Calcium (Lipitor) 40 mg PO DAILY [facility] Last Admin: 02/12/18 11:10 Dose: 40 mg Calcitriol (Rocaltrol) 0.25 mcg PO DAILY [facility] Last Admin: 02/12/18 11:11 Dose: 0.25 mcg Carvedilol (Coreg) 12.5 mg PO BID [facility] Last Admin: 02/12/18 17:55 Dose: 12.5 mg Heparin Sodium (Porcine) (Heparin) 5,000 units SC Q12 [facility]; Protocol Last Admin: 02/12/18 21:39 Dose: 5,000 units Heparin Sodium (Porcine) (Heparin) 2,000 units IVP TTS [facility]; Protocol Cefepime HCl (Maxipime 1gm) 1 gm in 100 mls @ 100 mls/hr IVPB Q24H [facility]; Protocol Stop: 02/20/18 13:01 Last Admin: 02/12/18 13:09 Dose: 100 mls/hr Loratadine (Claritin) 5 mg PO DAILY [facility] Last Admin: 02/12/18 11:07 Dose: 5 mg Multi-Ingredient Cream (Hydrocerin Cream) 0 ea TOP DAILY [facility] Last Admin: 02/12/18 11:10 Dose: 1 applic Nicotine (Nicoderm Cq) 1 patch TD SAT [facility] Non-Formulary Medication (Quinine Sulfate [Quinine Sulfate]) 324 mg PO DAILY [facility] Last Admin: 02/12/18 11:10 Dose: Not Given Pioglitazone HCl (Actos) 15 mg PO DAILY [facility] Last Admin: 02/12/18 11:06 Dose: 15 mg Ramipril (Altace) 5 mg PO DAILY [facility] Last Admin: 02/12/18 11:07 Dose: 5 mg Vitamin B Complex/Vit C/Folic Acid (Nephro-Dionisio) 1 tab PO 0800 [facility] Zolpidem Tartrate (Ambien) 5 mg PO HS PRN; Protocol PRN Reason: Insomnia Last Admin: 02/13/18 02:04 Dose: 5 mg - Labs Labs: 02/10/18 09:15 02/10/18 21:45 PT 20.4 SECONDS (9.4-12.5) H 02/09/18 11:20 INR 1.75 02/09/18 11:20 APTT 31.2 Seconds (25.1-36.5) 02/09/18 11:20
[2018-02-13 07:48] LABS: BASO # 0.03 K/mm3 (0.0-2.0); BASO % 0.5 % (0.0-3.0); EOS # 0.3 (0.0-0.7); EOS % 4.1 % (1.5-5.0); GRAN # 4.25 (1.4-6.5); GRAN % 67.4 % (50.0-68.0); HEMOGLOBIN 10.5 g/dL (14.0-18.0); LYMPH # 0.8 (1.2-3.4); LYMPH % 13.3 % (22.0-35.0); MEAN CELL VOLUME 89.9 fl (80.0-105.0); MEAN CORPUSCULAR HEMOGLOBIN 31.3 pg (25.0-35.0); MEAN CORPUSCULAR HGB CONC 34.8 g/dl (31.0-37.0); MEAN PLATELET VOLUME 9.6 fl (7.0-11.0); MONO # 0.9 (0.1-0.6); MONO % 14.7 % (1.0-6.0); RBC 3.36 10^6/uL (3.5-6.1); RED CELL DISTRIBUTION WIDTH 17.7 % (11.5-14.5); WHITE BLOOD COUNT 6.3 10^3/uL (4.5-11.0)
[2018-02-13] MEDS ORDERED: Multivitamin Vitamin B Complex (Nephro-Vite) Tab PO SCH (08:00)
[2018-02-13 08:15] LABS: ALB/GLOB RATIO 0.9 (1.1-1.8); ALBUMIN 3.2 g/dL (3.0-4.8); CALCIUM 7.5 mg/dL (8.4-10.5)
[2018-02-13 08:42] VITALS: BP 90/50; TEMP 98; O2SAT 95
[2018-02-13] MEDS: QUININE SULFATE 324 MG PO SCH (09:54)
--- NOTE | 2018-02-13 11:05 | CP.PCM.DIS ---
<Sudarshan Ramsey - Last Filed: 02/13/18 20:06> Provider - Provider Date of Admission: 02/10/18 20:18 Attending physician: Rodrigo Sinha MD Primary care physician: Dr. Wing Consults: Nephro: Juan Podiatry: Joselyn ID: [email or web address] IR: Kelvin Mart Time Spent in preparation of Discharge (in minutes): 35 Diagnosis - Discharge Diagnosis (1) HTN (hypertension) Status: Chronic Priority: Medium (2) Ischemic heart disease Status: Chronic Priority: High (3) PVD (peripheral vascular disease) Status: Chronic Priority: Medium (4) ESRD (end stage renal disease) on dialysis Status: Chronic Priority: High Hospital Course - Lab Results Lab Results: Micro Results 02/09/18 11:45 Blood Blood Culture - Preliminary NO GROWTH AFTER 3 DAYS 02/09/18 11:20 Blood Blood Culture - Preliminary NO GROWTH AFTER 3 DAYS Most Recent Lab Values WBC 6.3 10^3/uL (4.5-11.0) 02/13/18 07:30 RBC 3.36 10^6/uL (3.5-6.1) L 02/13/18 07:30 Hgb 10.5 g/dL (14.0-18.0) L 02/13/18 07:30 Hct 30.2 % (42.0-52.0) L 02/13/18 07:30 MCV 89.9 fl (80.0-105.0) 02/13/18 07:30 MCH 31.3 pg (25.0-35.0) 02/13/18 07:30 MCHC 34.8 g/dl (31.0-37.0) 02/13/18 07:30 RDW 17.7 % (11.5-14.5) H 02/13/18 07:30 Plt Count 253 10^3/uL (120.0-450.0) 02/13/18 07:30 MPV 9.6 fl (7.0-11.0) 02/13/18 07:30 Gran % 67.4 % (50.0-68.0) 02/13/18 07:30 Lymph % (Auto) 13.3 % (22.0-35.0) L 02/13/18 07:30 [place] % (Auto) 14.7 % (1.0-6.0) H 02/13/18 07:30 Eos % (Auto) 4.1 % (1.5-5.0) 02/13/18 07:30 Baso % (Auto) 0.5 % (0.0-3.0) 02/13/18 07:30 Gran # 4.25 (1.4-6.5) 02/13/18 07:30 Lymph # (Auto) 0.8 (1.2-3.4) L 02/13/18 07:30 [place] # (Auto) 0.9 (0.1-0.6) H 02/13/18 07:30 Eos # (Auto) 0.3 (0.0-0.7) 02/13/18 07:30 Baso # (Auto) 0.03 K/mm3 (0.0-2.0) 02/13/18 07:30 PT 20.4 SECONDS (9.4-12.5) H 02/09/18 11:20 INR 1.75 02/09/18 11:20 APTT 31.2 Seconds (25.1-36.5) 02/09/18 11:20 pO2 41 mm/Hg (30-55) 02/09/18 11:20 VBG pH 7.40 (7.32-7.43) 02/09/18 11:20 VBG pCO2 47.0 (40-60) 02/09/18 11:20 VBG HCO3 29.1 mmol/l (21-28) H 02/09/18 11:20 VBG Total CO2 30.5 mmol.L (22-28) H 02/09/18 11:20 VBG O2 Sat (Calc) 77.6 % (40-65) H 02/09/18 11:20 VBG Base Excess 3.5 mmol/L (0.0-2.0) H 02/09/18 11:20 VBG Potassium 4.8 mmol/L (3.6-5.2) 02/09/18 11:20 Sodium 125.0 mmol/L (132-148) L 02/09/18 11:20 Chloride 86.0 mmol/L (98-107) L 02/09/18 11:20 Glucose 114 mg/dl (75-110) H 02/09/18 11:20 Lactate 1.7 mmol/L (0.7-2.1) 02/09/18 11:20 FiO2 21.0 % 02/09/18 11:20 Sodium 128 mmol/L (132-148) L 02/13/18 07:30 Potassium 4.3 mmol/L (3.6-5.0) 02/13/18 07:30 Chloride 91 mmol/L (98-107) L 02/13/18 07:30 Carbon Dioxide 26 mmol/L (21-33) 02/13/18 07:30 Anion Gap 15 (10-20) 02/13/18 07:30 BUN 50 mg/dL (7-21) H 02/13/18 07:30 Creatinine 6.9 mg/dl (0.8-1.5) H 02/13/18 07:30 Est GFR ( Amer) 9 02/13/18 07:30 Est GFR (Non-Af Amer) 8 02/13/18 07:30 POC Glucose (mg/dL) 101 mg/dL (65-110) 02/10/18 09:49 Random Glucose 109 mg/dL (70-110) 02/13/18 07:30 Calcium 7.5 mg/dL (8.4-10.5) L 02/13/18 07:30 Phosphorus 2.3 mg/dL (2.5-4.5) L 02/10/18 21:45 Magnesium 2.1 mg/dL (1.7-2.2) 02/10/18 22:35 Total Bilirubin 0.6 mg/dL (0.2-1.3) 02/13/18 07:30 AST 24 U/L (17-59) 02/13/18 07:30 ALT 31 U/L (7-56) 02/13/18 07:30 Alkaline Phosphatase 149 U/L (38-126) H 02/13/18 07:30 Troponin I 0.04 ng/mL D 02/10/18 21:45 Total Protein 6.6 g/dL (5.8-8.3) 02/13/18 07:30 Albumin 3.2 g/dL (3.0-4.8) 02/13/18 07:30 Globulin 3.4 gm/dL 02/13/18 07:30 Albumin/Globulin Ratio 0.9 (1.1-1.8) L 02/13/18 07:30 Free T4 1.49 ng/dL (0.78-2.19) 02/10/18 21:45 TSH 3rd Generation 1.77 mIU/mL (0.46-4.68) 02/10/18 21:45 Venous Blood Potassium 4.8 mmol/L (3.6-5.2) 02/09/18 11:20 - Hospital Course Hospital Course: This is a 77 yo M with PMH of HTN, ischemic heart disease, peripheral vascular disease, and ESRD on HD who presented for bilateral leg discomfort and shortness of breath after missing a dialysis appointment. After several rounds of HD (last today), he was cleared for return to home. While here, he was also seen by Nephro, Podiatry, ID, and IR. As per IR, no acute blockage, no indication for angiography. Foot care as per Podiatry, patient will continue to follow up with them outpatient. On exam today, patient resting comfortably, pending last HD episode. No acute complaints. Was originally pending [facility] vs [facility] placement, but now wishes instead to return home. Ambulating without acute issue. Pt instructed to resume all home medications as previously prescribed, and to follow up with his PMD (Dr. Wing) within 1 week, with Podiatry as scheduled, and with his HD group for his routine HD. Pt expressed understanding and agreement with these instructions. All questions answered to his satisfaction, then patient was discharged to home. Reviewed and discussed with attending, Dr. Sinha. Discharge Exam - Additional Findings Additional findings: - Constitutional Appears: Non-toxic, No Acute Distress - Head Exam Head Exam: ATRAUMATIC, NORMAL INSPECTION, NORMOCEPHALIC - Eye Exam Eye Exam: EOMI, Normal appearance. absent: Conjunctival injection, Scleral icterus Pupil Exam: absent: Irregular, Unequal - ENT Exam ENT Exam: Mucous Membranes Moist - Neck Exam Neck Exam: Full ROM - Respiratory Exam Respiratory Exam: Decreased Breath Sounds (mild decreased breath sounds in all colbert), NORMAL BREATHING PATTERN. absent: Accessory Muscle Use, Chest Wall Tenderness, Clear to Ausculation Bilateral, Rales, Rhonchi, Wheezes - Cardiovascular Exam Cardiovascular Exam: REGULAR RHYTHM, RRR, +S1, +S2. absent: Bradycardia, Tachycardia, JVD - GI/Abdominal Exam GI & Abdominal Exam: Soft, Normal Bowel Sounds. absent: Distended, Firm, Rigid, Tenderness, Diminished Bowel Sounds, Hyperactive Bowel Sounds, Hypoactive Bowel Sounds - Extremities Exam Extremities Exam: Pedal Edema (+1 pitting edema in bilateral edema from feet to mid-shins, +1 from mid-shins to knees). absent: Calf Tenderness, Tenderness - Back Exam Back Exam: absent: CVA tenderness (L), CVA tenderness (R) - Neurological Exam awake and alert, following all commands appropriately, moving extremities spontaneously - Psychiatric Exam Psychiatric exam: Normal Affect, Normal Mood - Skin Skin Exam: Dry, Intact, Normal Color (except for some discoloration at distal bilateral LE), Warm Discharge Plan - Follow Up Plan Condition: GOOD Disposition: HOME/ ROUTINE Instructions: Peripheral Vascular (Arterial) Disease (DC), Hemodialysis (DC) Additional Instructions: You were seen for your shortness of breath and bilateral leg pain. Imaging did not show an acute blockage of the vessels in your legs, and you have undergone several rounds of dialysis for your missed dialysis episodes. Please resume all home medications as previously prescribed. Please follow up with your PMD (Dr. Wing) within 1 week, and with your outside dialysis site as previously scheduled. Please present to the nearest emergency department if you experience worsening or newly concerning symptoms. Referrals: Betty Wing MD [Family Provider] - <Rodrigo Sinha - Last Filed: 02/13/18 20:47> Provider - Provider Date of Admission: 02/10/18 20:18 Attending physician: Rodrigo Sinha MD Hospital Course - Lab Results Lab Results: Micro Results 02/09/18 11:45 Blood Blood Culture - Preliminary NO GROWTH AFTER 4 DAYS 02/09/18 11:20 Blood Blood Culture - Preliminary NO GROWTH AFTER 4 DAYS Most Recent Lab Values WBC 6.3 10^3/uL (4.5-11.0) 02/13/18 07:30 RBC 3.36 10^6/uL (3.5-6.1) L 02/13/18 07:30 Hgb 10.5 g/dL (14.0-18.0) L 02/13/18 07:30 Hct 30.2 % (42.0-52.0) L 02/13/18 07:30 MCV 89.9 fl (80.0-105.0) 02/13/18 07:30 MCH 31.3 pg (25.0-35.0) 02/13/18 07:30 MCHC 34.8 g/dl (31.0-37.0) 02/13/18 07:30 RDW 17.7 % (11.5-14.5) H 02/13/18 07:30 Plt Count 253 10^3/uL (120.0-450.0) 02/13/18 07:30 MPV 9.6 fl (7.0-11.0) 02/13/18 07:30 Gran % 67.4 % (50.0-68.0) 02/13/18 07:30 Lymph % (Auto) 13.3 % (22.0-35.0) L 02/13/18 07:30 [place] % (Auto) 14.7 % (1.0-6.0) H 02/13/18 07:30 Eos % (Auto) 4.1 % (1.5-5.0) 02/13/18 07:30 Baso % (Auto) 0.5 % (0.0-3.0) 02/13/18 07:30 Gran # 4.25 (1.4-6.5) 02/13/18 07:30 Lymph # (Auto) 0.8 (1.2-3.4) L 02/13/18 07:30 [place] # (Auto) 0.9 (0.1-0.6) H 02/13/18 07:30 Eos # (Auto) 0.3 (0.0-0.7) 02/13/18 07:30 Baso # (Auto) 0.03 K/mm3 (0.0-2.0) 02/13/18 07:30 PT 20.4 SECONDS (9.4-12.5) H 02/09/18 11:20 INR 1.75 02/09/18 11:20 APTT 31.2 Seconds (25.1-36.5) 02/09/18 11:20 pO2 41 mm/Hg (30-55) 02/09/18 11:20 VBG pH 7.40 (7.32-7.43) 02/09/18 11:20 VBG pCO2 47.0 (40-60) 02/09/18 11:20 VBG HCO3 29.1 mmol/l (21-28) H 02/09/18 11:20 VBG Total CO2 30.5 mmol.L (22-28) H 02/09/18 11:20 VBG O2 Sat (Calc) 77.6 % (40-65) H 02/09/18 11:20 VBG Base Excess 3.5 mmol/L (0.0-2.0) H 02/09/18 11:20 VBG Potassium 4.8 mmol/L (3.6-5.2) 02/09/18 11:20 Sodium 125.0 mmol/L (132-148) L 02/09/18 11:20 Chloride 86.0 mmol/L (98-107) L 02/09/18 11:20 Glucose 114 mg/dl (75-110) H 02/09/18 11:20 Lactate 1.7 mmol/L (0.7-2.1) 02/09/18 11:20 FiO2 21.0 % 02/09/18 11:20 Sodium 128 mmol/L (132-148) L 02/13/18 07:30 Potassium 4.3 mmol/L (3.6-5.0) 02/13/18 07:30 Chloride 91 mmol/L (98-107) L 02/13/18 07:30 Carbon Dioxide 26 mmol/L (21-33) 02/13/18 07:30 Anion Gap 15 (10-20) 02/13/18 07:30 BUN 50 mg/dL (7-21) H 02/13/18 07:30 Creatinine 6.9 mg/dl (0.8-1.5) H 02/13/18 07:30 Est GFR ( Amer) 9 02/13/18 07:30 Est GFR (Non-Af Amer) 8 02/13/18 07:30 POC Glucose (mg/dL) 101 mg/dL (65-110) 02/10/18 09:49 Random Glucose 109 mg/dL (70-110) 02/13/18 07:30 Calcium 7.5 mg/dL (8.4-10.5) L 02/13/18 07:30 Phosphorus 2.3 mg/dL (2.5-4.5) L 02/10/18 21:45 Magnesium 2.1 mg/dL (1.7-2.2) 02/10/18 22:35 Total Bilirubin 0.6 mg/dL (0.2-1.3) 02/13/18 07:30 AST 24 U/L (17-59) 02/13/18 07:30 ALT 31 U/L (7-56) 02/13/18 07:30 Alkaline Phosphatase 149 U/L (38-126) H 02/13/18 07:30 Troponin I 0.04 ng/mL D 02/10/18 21:45 Total Protein 6.6 g/dL (5.8-8.3) 02/13/18 07:30 Albumin 3.2 g/dL (3.0-4.8) 02/13/18 07:30 Globulin 3.4 gm/dL 02/13/18 07:30 Albumin/Globulin Ratio 0.9 (1.1-1.8) L 02/13/18 07:30 Free T4 1.49 ng/dL (0.78-2.19) 02/10/18 21:45 TSH 3rd Generation 1.77 mIU/mL (0.46-4.68) 02/10/18 21:45 Venous Blood Potassium 4.8 mmol/L (3.6-5.2) 02/09/18 11:20 - Hospital Course Hospital Course: Pt seen and examined. I have reviewed the note of the medical assisting instructor and agree with it. I have discussed the assessment and plan with the resident. I have reviewed the patient's labs and medications. Pt with ESRD on HD. He has gait dysfunction that he states has improved. He is refusing to go to [facility]. He prefers to go home. He will f/u with his PMD- Dr Wing.
[2018-02-13] MEDS: Hydrocerin(120 gm) TOP SCH (13:19)
[2018-02-13] MEDS: Cefepime 1gm in NS 100ml 1 GM/100 ML BAG IVPB SCH (13:19)
--- NOTE | 2018-02-13 14:42 | CP.PCM.PN ---
Subjective - Date & Time of Evaluation Date of Evaluation: 02/13/18 Time of Evaluation: 14:42 - Subjective Subjective: Nephrology Consultation Note: Assessment: Stable missed HD, PVD, edema, pleural effusion with ascites Hypertensive Chronic Kidney Disease (I12.0) End stage renal disease (N18.6) dependence on hemodialysis (Z99.2) (TTS) via AVF Anemia (D64.9), Hyperphosphatemia (E83.39), Secondary Hyperparathyroidism (E21.1), HTN (I12.0), PVD, CAD Plan: HD today per TTS. Continue with Nephrovite 1 tab/day. PRBC as needed for anemia. not on UMU with dialysis as last Hb 11.6 hold phos binders, last phos level 2.3 Continue with calcitriol. hold sensipar as Ca on low side BP control with meds as ordered. Patient on RAAS nadia: lowered dose. hold norvasc as BP on low side Glycemic control, Dialysis consistent diet Further work up/management as per primary team Dose meds/antibiotics (if needed) for ESRD status. Avoid fleets enema/magnesium based laxatives. Thanks for allowing me to participate in care of your patient. Will follow patient with you. Please call if any Qs Dr Kurt Martinez Office: [phone] Chief Complaint;leg swelling HPI: Pt is a 77 M with hx of ESRD on hemodialysis (TTS) via AVF, last dialysis sat, chronic anemia, hyperphosphatemia, secondary hyperparathyroidism, PVD, CAD, hypertension presented with complaints of missed HD and leg swelling. pt underwent HD on monday and monday. evaluated by podiatry and also for IR for PVD. Renal consult requested for ESRD management. besides legs swelling, he feels in usual health. pt on HD x 5 years ROS: Cardiovascular: No chest pain. Pulmonary: No shortness of breath Gastrointestinal: denies abdominal pain No nausea. No vomiting. Genitourinary: No pain while urinating. Denies blood in urine. All other negative except as mentioned in HPI Physical Examination: General Appearance: Comfortable, in no acute respiratory distress, co-operative . Vitals reviewed and noted as below Head; Atraumatic, normocephalic ENT: no ulcers no thrush. Tongue is midline. Oropharynx: no rash or ulcers. EYES: Pupils are equal, round and reactive to light accommodation. Eye muscles and extraocular movement intact. Sclera is anicteric. Neck; supple no lymphadenopathy, no thyromegaly or bruit Lungs: Normal respiratory rate/effort. Breath sounds bilateral equal and clear Heart: Normal rate. s1s2 normal. No rub or gallop. Extremities: 1+ edema. No varicose veins Neurological: Patient is alert, awake and oriented to person, place and time. No focal deficit. Strength bilateral appropriate and equal Skin: Warm and dry. Normal turgor. No rash. Palpitation: Normal elasticity for age Abdomen: Abdomen is soft. Bowel sounds +. There is no abdominal tenderness, no guarding/rigidity or organomegaly Psych: normal insight and normal affect/mood MSK: no joint tenderness or swelling. Digits and nails normal, no deformity : kidney or bladder not palpable Access: AVF Labs/imaging reviewed. Past medical history, past surgical history, family history, social history, allergy reviewed and noted as below Family Hx: no hx of CKD. Non contributory Objective - Vital Signs/Intake and Output Vital Signs (last 24 hours): Temp Pulse Resp BP Pulse Ox 98 F 84 20 90/50 L 95 02/13/18 08:41 02/13/18 08:41 02/13/18 08:41 02/13/18 08:41 02/13/18 08:41 Intake and Output: 02/13/18 02/13/18 06:59 18:59 Intake Total 1280 Balance 1280 - Medications Medications: Current Medications Aspirin (Ecotrin) 81 mg PO DAILY [facility] Last Admin: 02/13/18 13:17 Dose: 81 mg Atorvastatin Calcium (Lipitor) 40 mg PO DAILY [facility] Last Admin: 02/13/18 13:18 Dose: 40 mg Calcitriol (Rocaltrol) 0.25 mcg PO DAILY [facility] Last Admin: 02/13/18 13:17 Dose: 0.25 mcg Carvedilol (Coreg) 12.5 mg PO BID [facility] Last Admin: 02/13/18 09:52 Dose: Not Given Heparin Sodium (Porcine) (Heparin) 5,000 units SC Q12 JUDY; Protocol Last Admin: 02/13/18 13:18 Dose: 5,000 units Heparin Sodium (Porcine) (Heparin) 2,000 units IVP TTS JUDY; Protocol Last Admin: 02/13/18 11:55 Dose: 2,000 units Cefepime HCl (Maxipime 1gm) 1 gm in 100 mls @ 100 mls/hr IVPB Q24H [facility]; Protocol Stop: 02/20/18 13:01 Last Admin: 02/13/18 13:19 Dose: 100 mls/hr Loratadine (Claritin) 5 mg PO DAILY [facility] Last Admin: 02/13/18 13:18 Dose: 5 mg Multi-Ingredient Cream (Hydrocerin Cream) 0 ea TOP DAILY [facility] Last Admin: 02/13/18 13:19 Dose: Not Given Nicotine (Nicoderm Cq) 1 patch TD SAT [facility] Non-Formulary Medication (Quinine Sulfate [Quinine Sulfate]) 324 mg PO DAILY [facility] Last Admin: 02/13/18 09:54 Dose: Not Given Pioglitazone HCl (Actos) 15 mg PO DAILY [facility] Last Admin: 02/13/18 13:17 Dose: 15 mg Ramipril (Altace) 2.5 mg PO MWF [facility] Vitamin B Complex/Vit C/Folic Acid (Nephro-Dionisio) 1 tab PO 0800 [facility] Last Admin: 02/13/18 13:17 Dose: 1 tab Zolpidem Tartrate (Ambien) 5 mg PO HS PRN; Protocol PRN Reason: Insomnia Last Admin: 02/13/18 02:04 Dose: 5 mg - Labs Labs: 02/13/18 07:30 02/13/18 07:30 PT 20.4 SECONDS (9.4-12.5) H 02/09/18 11:20 INR 1.75 02/09/18 11:20 APTT 31.2 Seconds (25.1-36.5) 02/09/18 11:20
[2018-02-13 15:40] VITALS: PULSE 89
--- NOTE | 2018-02-13 16:21 | CP.PCM.PN ---
<Jennifer Pruitt - Last Filed: 02/13/18 16:19> Subjective - Date & Time of Evaluation Date of Evaluation: 02/13/18 Time of Evaluation: 16:19 - Subjective Subjective: Podiatry progress note for Dr. Cardenas 81 y/o male patient seen and evaluated at bedside for b/l LE edema. Patient denies any pain to his LE at this time. Patient denies any other pedal complaint at this time. He denies any recent F/N/V/C/SOB. Objective - Vital Signs/Intake and Output Vital Signs (last 24 hours): Temp Pulse Resp BP Pulse Ox 98 F 89 20 90/50 L 95 02/13/18 08:41 02/13/18 14:00 02/13/18 08:41 02/13/18 08:41 02/13/18 08:41 Intake and Output: 02/13/18 02/13/18 06:59 18:59 Intake Total 1280 Balance 1280 - Labs Labs: 02/13/18 07:30 02/13/18 07:30 PT 20.4 SECONDS (9.4-12.5) H 02/09/18 11:20 INR 1.75 02/09/18 11:20 APTT 31.2 Seconds (25.1-36.5) 02/09/18 11:20 - Constitutional Appears: Well, Non-toxic, No Acute Distress - Head Exam Head Exam: ATRAUMATIC, NORMOCEPHALIC - Extremities Exam Additional comments: Bilateral lower extremities exam VASC: faintly palpable pedal pulses bilaterally, Temp gradient warm to cool in b/l. Cap refill < 3 sec to all digits. +1 pitting edema noted to b/l LE NEURO: Gross and protective sensations are intact DERM: +1 pitting edema noted to b/l LE. No erythema noted. No clinical signs of active bacterial infection. Hypopigmentation noted to the anterior aspect of the right leg MSK: Muscle power intact 5/5 to all groups b/l. no pain with posterior calf squeeze - Neurological Exam Neurological Exam: Alert, Awake, Oriented x3 - Psychiatric Exam Psychiatric exam: Normal Affect, Normal Mood Assessment and Plan - Assessment and Plan (Free Text) Assessment: 77 y/o M patient patient seen and evaluated at the bedside for b/l LE edema 2ry to peripheral vascular disease. Plan: Patient seen and evaluated in the bedside with Dr. Cardenas Plan discussed with attending Charts, labs and vitals reviewed; Afebrile, no leukocytosis GAYATRI/PVR: B/L popliteal, triforcation and tibial occlusive disease. (R: 0.80, L: 0.69) LE venous duplex: No signs of DVT Ordered Arterial Doppler b/l- Pending Ordered Interventional vascular consult- recs appreciated B/L LE left undressed Podiatry will continue to follow patient as an outpatient <Ayaan Cardenas - Last Filed: 02/13/18 16:26> Objective - Vital Signs/Intake and Output Vital Signs (last 24 hours): Temp Pulse Resp BP Pulse Ox 98 F 89 20 90/50 L 95 02/13/18 08:41 02/13/18 14:00 02/13/18 08:41 02/13/18 08:41 02/13/18 08:41 Intake and Output: 02/13/18 02/13/18 06:59 18:59 Intake Total 1280 Balance 1280 - Labs Labs: 02/13/18 07:30 02/13/18 07:30 PT 20.4 SECONDS (9.4-12.5) H 02/09/18 11:20 INR 1.75 02/09/18 11:20 APTT 31.2 Seconds (25.1-36.5) 02/09/18 11:20 Attending/Attestation - Attestation I have personally seen and examined this patient.: Yes I have fully participated in the care of the patient.: Yes I have reviewed all pertinent clinical information, including history, physical exam and plan: Yes
--- NOTE | 2018-02-14 02:08 | PN ---
DATE: 02/13/2018 SUBJECTIVE: The patient is in bed, was seen early this morning in room 378, bed 1. PHYSICAL EXAMINATION VITAL SIGNS: Temperature of 98, blood pressure is 90/50, respiratory rate of 18, and heart rate of 84. HEENT: Examination of HEENT is unremarkable. NECK: Supple. LUNGS: Have decreased breath sounds. HEART: Normal S1 and S2. ABDOMEN: Soft. LABORATORY EXAMINATION: Reveals a white count of 6.3 and hemoglobin of 10. Creatinine 6.9. Microbiology reveals the blood cultures are negative. ASSESSMENT AND PLAN: This is a 77-year-old male, who was seen earlier this morning in room 378 with a left leg cellulitis slowly improving, in a patient with end-stage renal disease on hemodialysis, currently on vancomycin and cefepime, in a patient with prostate cancer, peripheral arterial disease, coronary artery disease and diabetic. Socrates Maldonado MD
== END 2018-02-13 15:29 | DRG 602 ==
LOC: ED 09:31 → ERH 14:23 → 3RSO 18:11 → OBSVTOIN 02-10 20:18 → 3RSO 02-11 15:33
PROVIDERS: ADMIT Internal Medicine Medical Oncology; ATTEND Internal Medicine Nephrology
PROC: 5A1D70Z Performance of Urinary Filtration, Intermittent, Less than 6 Hours Per Day (ICD-10-PCS; principal; 2018-02-09)
PROC: 5A1D70Z Performance of Urinary Filtration, Intermittent, Less than 6 Hours Per Day (ICD-10-PCS; 2018-02-10)
PROC: 5A1D70Z Performance of Urinary Filtration, Intermittent, Less than 6 Hours Per Day (ICD-10-PCS; 2018-02-13)
DX: L03.116 Cellulitis of left lower limb (principal); N18.6 End stage renal disease; I12.0 Hypertensive chronic kidney disease with stage 5 chronic kidney disease or end stage renal disease; N25.81 Secondary hyperparathyroidism of renal origin; J90 Pleural effusion, not elsewhere classified; R18.8 Other ascites; E11.22 Type 2 diabetes mellitus with diabetic chronic kidney disease; E11.51 Type 2 diabetes mellitus with diabetic peripheral angiopathy without gangrene; I25.10 Atherosclerotic heart disease of native coronary artery without angina pectoris; E83.39 Other disorders of phosphorus metabolism; D64.9 Anemia, unspecified; Z99.2 Dependence on renal dialysis; Z85.46 Personal history of malignant neoplasm of prostate; Z79.84 Long term (current) use of oral hypoglycemic drugs; Z79.82 Long term (current) use of aspirin; Z95.0 Presence of cardiac pacemaker; Z98.61 Coronary angioplasty status

== ENCOUNTER 2018-02-16 22:26 | Inpatient (IN) | payer MEDICARE, BC ==
--- NOTE | 2018-02-16 23:27 | ED PDOC ---
Arrival/HPI - General Historian: Patient - History of Present Illness Narrative History of Present Illness (Text): 02/16/18 23:24 Patient is a 77 year old male with past medical history of ESRD on HD TThS, PVD, chronic anemia who presented to the emergency department for rectal bleeding. Patient states that he started experiencing dark red blood in his stool. Per long-term documentation, patient had 3 episodes of fresh blood in his stool. States that his last colonoscopy was 5 year ago and was normal at that time. He admits to having some abdominal cramping. He offers no other complaints at this time. Patient states that he does make a small amount of urine. He denies any headache, dizziness, cp, palpitations, sob, hematuria, dysuria, diarrhea, constipation. PMD: Dr Wing Allergies: NKDA Medications: See MAR Medical History: ESRD on HD, Peripheral vascular disease, Ischemic heart disease, Hypertension, chronic anemia Surgical History: AV fistula Social History: Denies alcohol, tobacco, drug use Family History: Hypertension Symptom Onset: Sudden Symptom Course: Unchanged Quality: Cramping <Mera Katz - Last Filed: 02/17/18 02:30> <Guillermo Ash - Last Filed: 02/17/18 03:19> - General Chief Complaint: GI Problem Time Seen by Provider: 02/16/18 22:43 Past Medical History - Provider Review Nursing Documentation Reviewed: Yes - Infectious Disease Hx of Infectious Diseases: None - Cardiac Hx Hypertension: Yes - Pulmonary Hx Respiratory Disorders: No - Neurological Hx Neurological Disorder: No - HEENT Hx HEENT Disorder: No - Renal Hx Renal Disorder: Yes Hx Dialysis: Yes - Endocrine/Metabolic Hx Endocrine Disorders: No - Hematological/Oncological Hx Blood Disorders: No - Integumentary Hx Dermatological Disorder: No - Musculoskeletal/Rheumatological Hx Musculoskeletal Disorders: No Hx Falls: No - Gastrointestinal Hx Gastrointestinal Disorders: No - Genitourinary/Gynecological Hx Genitourinary Disorders: No - Psychiatric Hx Psychophysiologic Disorder: No Hx Substance Use: No - Anesthesia Hx Anesthesia Reactions: No Hx Malignant Hyperthermia: No - Suicidal Assessment Feels Threatened In Home Enviroment: No <Mera Katz - Last Filed: 02/17/18 02:30> Family/Social History - Physician Review Nursing Documentation Reviewed: Yes Family/Social History: Hypertension Smoking Status: Never Smoked Hx Alcohol Use: Yes (OCC) Hx Substance Use: No <Mera Katz - Last Filed: 02/17/18 02:30> Allergies/Home Meds <Mera Katz - Last Filed: 02/17/18 02:30> <Guillermo Ash - Last Filed: 02/17/18 03:19> Allergies/Adverse Reactions: Allergies No Known Allergies Allergy (Verified 02/09/18 09:55) Home Medications: Home Meds Medication Instructions Recorded Confirmed Amlodipine Besylate 10 mg PO DAILY 08/19/13 08/19/13 Aspirin [Aspir 81] 81 mg PO DAILY 08/19/13 08/19/13 Carvedilol 12.5 mg PO BID 08/19/13 08/20/13 Cinacalcet [Sensipar] 30 mg PO HS 08/19/13 08/20/13 Multivitamin9 [Triphrocaps] 1 sgl PO DAILY 08/19/13 08/20/13 Pioglitazone HCl 45 mg PO DAILY 08/19/13 08/20/13 Ramipril 5 mg PO DAILY 08/19/13 08/20/13 Sevelamer [Renagel] 800 mg PO TID 08/19/13 08/20/13 Atorvastatin [Lipitor] 40 mg PO DAILY 08/20/13 08/20/13 Calcitriol 0.25 mcg PO DAILY 08/20/13 08/20/13 Epoetin Jaxon [Procrit] 40,000 unit IJ SAT 08/20/13 08/20/13 Loratadine [Claritin Reditabs] 5 mg PO DAILY 08/20/13 08/20/13 Nicotine 21 mg/24 hr [Nicoderm Cq] 1 patch SAT 08/20/13 08/20/13 Quinine Sulfate 324 mg PO DAILY 08/20/13 08/20/13 Review of Systems - Physician Review All systems were reviewed & negative as marked: Yes - Review of Systems Constitutional: Normal. absent: Fatigue, Fevers Eyes: Normal. absent: Vision Changes Respiratory: Normal. absent: SOB, Cough, Wheezing Cardiovascular: Normal. absent: Chest Pain, Palpitations Gastrointestinal: Hematochezia. absent: Abdominal Pain, Constipation, Diarrhea, Nausea, Vomiting Genitourinary Male: Normal. absent: Dysuria Neurological: Normal. absent: Headache, Dizziness <Mera Katz - Last Filed: 02/17/18 02:30> Physical Exam Vital Signs Reviewed: Yes Vital Signs Pulse Resp BP Pulse Ox 02/16/18 22:54 97 H 20 102/57 L 97 Temperature: Afebrile Blood Pressure: Hypotensive Pulse: Regular Respiratory Rate: Normal Appearance: Positive for: Well-Appearing, Comfortable Pain Distress: None Mental Status: Positive for: Alert and Oriented X 3 - Systems Exam Head: Present: Atraumatic, Normocephalic Extroacular Muscles: Present: EOMI Mouth: Present: Moist Mucous Membranes Respiratory/Chest: Present: Clear to Auscultation, Good Air Exchange. No: Respiratory Distress, Accessory Muscle Use Cardiovascular: Present: Regular Rate and Rhythm, Murmurs, Normal S1, S2 Abdomen: Present: Normal Bowel Sounds, Other (Soft; areas of ecchymosis on abdomen). No: Tenderness, Distention, Peritoneal Signs Rectal: Present: Rectal Tenderness, Gross Blood, Normal Rectal Tone. No: Hemorrhoids Upper Extremity: Present: Other (Left lower arm: +Fistula, positive thrill, distal pulses intact) Lower Extremity: Present: Edema, NORMAL PULSES, Other (+1 pitting edema, venous stasis skin changes bilaterally) Skin: Present: Warm, Dry, Normal Color Psychiatric: Present: Alert, Oriented x 3, Normal Insight <Mera Katz - Last Filed: 02/17/18 02:30> Vital Signs Pulse Resp BP Pulse Ox 02/16/18 22:54 97 H 20 102/57 L 97 <Guillermo Ash - Last Filed: 02/17/18 03:19> Medical Decision Making ED Course and Treatment: 02/16/18 23:46 Patient seen and examined at bedside. Patient sent in from long-term for rectal bleeding. On exam, patient with bright red blood per rectum. Plan - CBC, CMP, Type and Screen, Coags 02/17/18 01:05 Patient complaining of vague abdominal pain. Abdomen in soft, non tender, non distended. We will order CT abd/pelvis, Morphine 2mg IVP. Discussed the case with Dr Fisher who accepts the patient under his service. GI consult placed. - RAD Interpretation Narrative RAD Interpretations (Text): 02/17/18 01:37 CXR: no active disease 02/17/18 02:30 CT abdomen/pelvis w/o contrast: Moderate cardiomegaly. Mild bilateral pleural effusions. Passive atelectatic airspace disease of the lower lobes. Small sliding hiatal hernia. Cholelithiasis with diffuse thickening of the gallbladder. Probably secondary to congestive heart failure and ascites. Radiotherapy seeds of the prostate are noted. Dilated suprahepatic IVC suggestive of dysfunction of the right cardiac cavities. Mild ascites is noted. Moderate bilateral chronic renal atrophy. Moderate diffuse spondylosis. Uncomplicated diverticulosis with moderate amount of fecal residue in the large bowel. Gastroparesis. Operations Support Coordinator: ED Physician - EKG Interpretation EKG Interpretation (Text): 02/17/18 01:48 EKbpm, sinus rhythm, prolonged QT interval, inverted T waves Interpreted by ED Physician: Yes Type: 12 lead EKG <Mera Katz - Last Filed: 02/17/18 02:30> ED Course and Treatment: Seen and examined with resident. 77 y/o M p/w rectal bleeding. On exam, no hemorrhoids. Gross blood present. IMPRESSION: Moderate cardiomegaly. Mild bilateral pleural effusions. Passive atelectatic airspace disease of the lower lobes. Small sliding hiatal hernia. Cholelithiasis with diffuse thickening of the gallbladder. Probably secondary to congestive heart failure and ascites. Radiotherapy seeds of the prostate are noted. Dilated suprahepatic IVC suggestive of dysfunction of the right cardiac cavities. Mild ascites is noted. Moderate bilateral chronic renal atrophy. Moderate diffuse spondylosis. Uncomplicated diverticulosis with moderate amount of fecal residue in the large bowel. Gastroparesis. - RAD Interpretation Radiology Orders: 02/16/18 23:55 CXR [CHEST PORTABLE] [RAD] Stat - Medication Orders Current Medication Orders: Discontinued Medications Morphine Sulfate (Morphine) 2 mg IVP STAT STA Stop: 02/17/18 00:34 Last Admin: 02/17/18 01:37 Dose: 2 mg MAR Pain Assessment Document 02/17/18 01:37 JOMicha (Rec: 02/17/18 01:38 JO [id number]) Pain Reassessment Is this a pain reassessment? No Sleep Is patient sleeping during reassessment? No Presence of Pain Presence of Pain Yes Pain Scale Used Protocol: PSCALES Pain Scale Used Numeric Location Pain Location Body Site Abdomen Description Intensity of Pain at present 6 IVP Administration Document 02/17/18 01:37 UMA (Rec: 02/17/18 01:38 JO [id number]) Charges for Administration # of IVP Administrations 1 <Guillermo Ash - Last Filed: 02/17/18 03:19> Disposition/Present on Arrival - Present on Arrival Any Indicators Present on Arrival: No History of DVT/PE: No History of Uncontrolled Diabetes: No Urinary Catheter: No History of Decub. Ulcer: No History Surgical Site Infection Following: None - Disposition Have Diagnosis and Disposition been Completed?: Yes Disposition Time: 01:47 Patient Plan: Admission <Mera Katz - Last Filed: 02/17/18 02:30> <Guillermo Ash - Last Filed: 02/17/18 03:19> - Disposition Diagnosis: GI bleed Disposition: HOSPITALIZED Patient Problems: Current Active Problems Problem Status Onset GI bleed Acute Condition: FAIR
[2018-02-17 00:27] LABS: INR 1.79; PARTIAL THROMBOPLASTIN TIME 31.5 Seconds (25.1-36.5); PROTHROMBIN TIME 20.6 SECONDS (9.4-12.5)
[2018-02-17 00:28] LABS: ALB/GLOB RATIO 0.9 (1.1-1.8); ALBUMIN 3.1 g/dL (3.0-4.8); CALCIUM 8.3 mg/dL (8.4-10.5)
[2018-02-17 00:33] LABS: HEMOGLOBIN 9.7 g/dL (14.0-18.0); MEAN CELL VOLUME 90.6 fl (80.0-105.0); MEAN CORPUSCULAR HEMOGLOBIN 31.5 pg (25.0-35.0); MEAN CORPUSCULAR HGB CONC 34.8 g/dl (31.0-37.0); MEAN PLATELET VOLUME 10.4 fl (7.0-11.0); RBC 3.08 10^6/uL (3.5-6.1); RED CELL DISTRIBUTION WIDTH 17.6 % (11.5-14.5); WHITE BLOOD COUNT 7.4 10^3/uL (4.5-11.0)
[2018-02-17] MEDS ORDERED: Morphine 2 mg/ml ISec IVP STA (00:33)
[2018-02-17 00:34] LABS: BASO # 0.02 K/mm3 (0.0-2.0); BASO % 0.3 % (0.0-3.0); EOS # 0.2 (0.0-0.7); GRAN # 5.34 (1.4-6.5); GRAN % 71.9 % (50.0-68.0); LYMPH # 0.8 (1.2-3.4); LYMPH % 10.2 % (22.0-35.0); MONO # 1.2 (0.1-0.6); MONO % 15.6 % (1.0-6.0)
[2018-02-17 04:40] VITALS: BMI 28.2
[2018-02-17] MEDS ORDERED: Darbepoetin Alfa 60 mcg/ml Inj IVP ONE (09:47)
--- NOTE | 2018-02-17 10:14 | CP.PCM.HP ---
<Sudarshan Ramsey - Last Filed: 02/17/18 18:21> History of Present Illness - History of Present Illness History of Present Illness: H&P for Dr. Sinha's service CC: 3x dark red blood in stool This is a 77 yo M with PMH of ESRD on HD T//Mon, PVD, anemia of chronic disease, and ischemic heart disease who presented to [facility] with complaint of 3 episodes of dark blood in his stool, which began 2 days ago. Patient denies any recent trauma, changes in diet, sick contacts, or pain with defecation. Does report generalized mild crampy abdominal pain, most prominent at the bilateral lower quadrants. Denies diarrhea, constipation, straining to move bowels, passing clots with stool, sensation of obstruction when trying to move bowels, nausea, emesis, fevers, chills, dysuria, or hematuria. Denies similar occurrence in the past. Last colonoscopy 5 years prior, unremarkable as per patient. Of note, recently here at [facility] with complaint of bilateral leg pain and shortness of breath after missing HD sessions; reports no further missed HD sessions prior to this presentation. No leg pain currently. 12-system ROS was reviewed and negative, except as above. PMH: as above PSH: colonoscopy, LUE AV fistula graft placement Fam Hx: denies relevant hx Soc Hx: denies tobacco/alcohol/illicits/IVDA PMD: Dr. Wing. Present on Admission - Present on Admission Any Indicators Present on Admission: No History of DVT/PE: No History of Uncontrolled Diabetes: No Urinary Catheter: No Review of Systems - Review of Systems All systems: reviewed and no additional remarkable complaints except (as per HPI) Past Patient History - Infectious Disease Hx of Infectious Diseases: None - Past Social History Smoking Status: Never Smoked - CARDIAC Hx Cardiac Disorders: Yes Hx Cardia Arrhythmia: Yes Hx Hypertension: Yes Hx Internal Defibrillator: Yes - PULMONARY Hx Respiratory Disorders: Yes Hx Asthma: Yes - NEUROLOGICAL Hx Neurological Disorder: No - HEENT Hx HEENT Problems: No - RENAL Hx Chronic Kidney Disease: Yes Hx Dialysis: Yes Hx Renal Failure: Yes - ENDOCRINE/METABOLIC Hx Endocrine Disorders: Yes Hx Diabetes Mellitus Type 2: Yes - HEMATOLOGICAL/ONCOLOGICAL Hx Blood Disorders: Yes Hx Anemia: Yes Hx Cancer: Yes (prostate with seed implants) - INTEGUMENTARY Hx Dermatological Problems: No - MUSCULOSKELETAL/RHEUMATOLOGICAL Hx Musculoskeletal Disorders: Yes Hx Arthritis: Yes Hx Back Pain: Yes Hx Falls: No Hx Fractures: Yes (L foot) Hx Unsteady Gait: Yes - GASTROINTESTINAL Hx Gastrointestinal Disorders: Yes Hx Gastroesophageal Reflux: Yes - GENITOURINARY/GYNECOLOGICAL Hx Genitourinary Disorders: Yes Hx Prostate Problems: Yes - PSYCHIATRIC Hx Psychophysiologic Disorder: No Hx Substance Use: No - SURGICAL HISTORY Hx Surgeries: Yes Hx Cardiac Catheterization: Yes Hx Coronary Stent: Yes Other/Comment: Defibrilator placement - ANESTHESIA Hx Anesthesia Reactions: No Hx Malignant Hyperthermia: No Meds Allergies/Adverse Reactions: Allergies Allergy/AdvReac Type Severity Reaction Status Date / Time No Known Allergies Allergy Verified 02/09/18 09:55 Physical Exam - Additional Findings Additional findings: - Constitutional Appears: Non-toxic, No Acute Distress - Head Exam Head Exam: ATRAUMATIC, NORMAL INSPECTION, NORMOCEPHALIC - Eye Exam Eye Exam: EOMI, Normal appearance. absent: Conjunctival injection, Scleral icterus - ENT Exam ENT Exam: Mucous Membranes Moist - Neck Exam Neck Exam: Full ROM - Respiratory Exam Respiratory Exam: Clear to Ausculation Bilateral, NORMAL BREATHING PATTERN. absent: Accessory Muscle Use, Chest Wall Tenderness, Rales, Rhonchi, Wheezes - Cardiovascular Exam Cardiovascular Exam: REGULAR RHYTHM, RRR, +S1, +S2. absent: Bradycardia, Tachycardia, JVD - GI/Abdominal Exam GI & Abdominal Exam: Soft, Normal Bowel Sounds, Tenderness (mild diffuse discomfort, only worsened with palpation at bilateral lower quadrants). absent: Distended, Firm, Rigid, Diminished Bowel Sounds, Hyperactive Bowel Sounds, Hypoactive Bowel Sounds - Extremities Exam Extremities Exam: Pedal Edema (+1 pitting edema in bilateral edema from feet to mid-shins, +1 from mid-shins to knees). absent: Calf Tenderness, Tenderness - Back Exam Back Exam: absent: CVA tenderness (L), CVA tenderness (R) - Neurological Exam awake and alert, following all commands appropriately, moving extremities spontaneously - Psychiatric Exam Psychiatric exam: Normal Affect, Normal Mood - Skin Skin Exam: Dry, Intact, Normal Color (except for some discoloration at distal bilateral LE), Warm Results - Vital Signs Recent Vital Signs: Last Vital Signs Temp 98.1 F 02/17/18 08:48 Pulse 93 H 02/17/18 08:48 Resp 20 02/17/18 08:48 BP 100/60 02/17/18 08:48 Pulse Ox 95 02/17/18 08:48 - Labs Result Diagrams: 02/17/18 00:05 02/17/18 00:05 Labs: Laboratory Results - last 24 hr 02/17/18 02/17/18 02/17/18 00:05 00:05 00:05 WBC 7.4 RBC 3.08 L Hgb 9.7 L Hct 27.9 L MCV 90.6 MCH 31.5 MCHC 34.8 RDW 17.6 H Plt Count 208 MPV 10.4 Gran % 71.9 H Lymph % (Auto) 10.2 L [place] % (Auto) 15.6 H Eos % (Auto) 2.0 Baso % (Auto) 0.3 Gran # 5.34 Lymph # (Auto) 0.8 L [place] # (Auto) 1.2 H Eos # (Auto) 0.2 Baso # (Auto) 0.02 PT 20.6 H INR 1.79 APTT 31.5 Sodium 132 Potassium 3.9 Chloride 90 L Carbon Dioxide 32 Anion Gap 14 BUN 38 H Creatinine 5.1 H Est GFR ( Amer) 13 Est GFR (Non-Af Amer) 11 Random Glucose 97 Calcium 8.3 L Total Bilirubin 0.9 AST 25 ALT 26 Alkaline Phosphatase 128 H Total Protein 6.5 Albumin 3.1 Globulin 3.4 Albumin/Globulin Ratio 0.9 L Lipase 263 Assessment & Plan - Assessment and Plan (Free Text) Assessment: This is a 77 yo M with PMH of ESRD on HD T//Mon, PVD, anemia of chronic disea se, and ischemic heart disease who presented to [facility] with complaint of 3 episodes of dark blood in his stool, which began 2 days ago. He was admitted for suspected GI bleed, pending GI eval and recs. Plan: 1) Dark blood with stooling -lower GI bleed vs upper GI bleed vs hemorrhoids vs ischemic collitis -no pain directly with bleeds and/or stooling, but some generalized discomfort, could be indicative of ischemic collitis -Hgb 9.7, down from 10.5 on discharge, but still within acceptable limits, and patient remains hemodynamically stable, so don't need to transfuse at this time -GI consulted, appreciate their recs -NPO pending GI eval and recs -Protonix IV daily 2) ESRD -Nephro consulted for continuing HD -continue home sevelamer and cinacalcet Dispo: Pending GI eval and recs Ppx: Protonix covers for GI, SCDs for DVT Reviewed and discussed with attending, Dr. Sinha <Rodrigo Sinha S - Last Filed: 02/18/18 19:30> Results - Vital Signs Recent Vital Signs: Last Vital Signs Temp 97.8 F 02/18/18 08:11 Pulse 85 02/18/18 18:00 Resp 20 02/18/18 08:11 BP 98/57 L 02/18/18 17:20 Pulse Ox 99 02/18/18 08:11 - Labs Result Diagrams: 02/18/18 08:45 02/18/18 08:45 Labs: Laboratory Results - last 24 hr 02/18/18 02/18/18 08:45 08:45 WBC 7.0 RBC 3.17 L Hgb 9.9 L Hct 28.6 L MCV 90.2 MCH 31.2 MCHC 34.6 RDW 17.3 H Plt Count 220 MPV 9.9 Gran % 67.6 Lymph % (Auto) 14.8 L [place] % (Auto) 13.5 H Eos % (Auto) 3.7 Baso % (Auto) 0.4 Gran # 4.74 Lymph # (Auto) 1.0 L [place] # (Auto) 1.0 H Eos # (Auto) 0.3 Baso # (Auto) 0.03 Sodium 134 Potassium 3.9 Chloride 96 L Carbon Dioxide 30 Anion Gap 12 BUN 26 H Creatinine 4.4 H Est GFR ( Amer) 16 Est GFR (Non-Af Amer) 13 Random Glucose 84 Calcium 8.1 L Assessment & Plan - Assessment and Plan (Free Text) Plan: Pt seen and examined. I have reviewed the note of the medical coding manager and agree with it. I have reviewed the meds and labs of the pt. I have discussed the assessment and plan with the resident. Pt with GI bleed. He will need Gi evaluation and Renal consult. He is due for HD today. He will be placed on Protonix. Continue with Sevelamer and Cinacalcet. His AVF has a good thrill and bruit.
--- NOTE | 2018-02-17 13:58 | RAD ---
Date of service: 02/17/2018 HISTORY: GI bleed COMPARISON: Comparison chest dated 02/09/2018 FINDINGS: LUNGS: Poor inspiration with low lung volumes, crowded bronchovascular markings and mild bibasilar atelectasis... Mild central pulmonary venous congestive changes (chronic compensated) felt present. Questionable small left-sided effusion. PLEURA: (As above. No pneumothorax apparent. CARDIOVASCULAR: Mild aortic atherosclerotic calcification present. Cardiomegaly.. In situ single lead pacemaker/defibrillator. OSSEOUS STRUCTURES: No significant abnormalities. VISUALIZED UPPER ABDOMEN: Normal. OTHER FINDINGS: None. IMPRESSION: Poor inspiration with low lung volumes, crowded bronchovascular markings and mild bibasilar atelectasis.. Suspect mild chronic compensated central pulmonary venous congestion questionable small left-sided effusion. Cardiomegaly.
--- NOTE | 2018-02-17 15:41 | CP.PCM.CON ---
History of Present Illness - History of Present Illness History of Present Illness: Nephrology Consultation Note: Assessment: Stable GI bleed Hypertensive Chronic Kidney Disease (I12.0) End stage renal disease (N18.6) dependence on hemodialysis (Z99.2) (TTS) via AVF Anemia (D64.9), Hyperphosphatemia (E83.39), Secondary Hyperparathyroidism (E21.1), HTN (I12.0), PVD, CAD Plan: continue with HD per TTS. Continue with Nephrovite 1 tab/day. PRBC as needed for anemia. on UMU with dialysis as last Hb 9 BP on low side. hold BP meds Glycemic control, Dialysis consistent diet Further work up/management as per primary team Dose meds/antibiotics (if needed) for ESRD status. Avoid fleets enema/magnesium based laxatives. added PPI Gi eval Thanks for allowing me to participate in care of your patient. Will follow jyoti ent with you. Please call if any Qs. had d/w team Dr Kurt Martinez Office: [phone] Chief Complaint;blood in stool HPI: Pt is a 77 M with hx of ESRD on hemodialysis (TTS) via AVF, last dialysis sat, chronic anemia, hyperphosphatemia, secondary hyperparathyroidism, PVD, CAD, hypertension presented with complaints of blood on stool and dark stool Renal consult requested for ESRD management. otherwise he feels in usual health. pt on HD x 5 years ROS: Cardiovascular: No chest pain. Pulmonary: No shortness of breath Gastrointestinal: denies abdominal pain No nausea. No vomiting. Genitourinary: No pain while urinating. Denies blood in urine. All other negative except as mentioned in HPI Physical Examination: General Appearance: Comfortable, in no acute respiratory distress, co-operative . Vitals reviewed and noted as below Head; Atraumatic, normocephalic ENT: no ulcers no thrush. Tongue is midline. Oropharynx: no rash or ulcers. EYES: Pupils are equal, round and reactive to light accommodation. Eye muscles and extraocular movement intact. Sclera is anicteric. Neck; supple no lymphadenopathy, no thyromegaly or bruit Lungs: Normal respiratory rate/effort. Breath sounds bilateral equal and clear Heart: Normal rate. s1s2 normal. No rub or gallop. Extremities: 1+ edema. No varicose veins Neurological: Patient is alert, awake and oriented to person, place and time. No focal deficit. Strength bilateral appropriate and equal Skin: Warm and dry. Normal turgor. No rash. Palpitation: Normal elasticity for age Abdomen: Abdomen is soft. Bowel sounds +. There is no abdominal tenderness, no guarding/rigidity or organomegaly Psych: normal insight and normal affect/mood MSK: no joint tenderness or swelling. Digits and nails normal, no deformity : kidney or bladder not palpable Access: AVF Labs/imaging reviewed. Past medical history, past surgical history, family history, social history, allergy reviewed and noted as below Family Hx: no hx of CKD. Non contributory Past Patient History - Infectious Disease Hx of Infectious Diseases: None - Past Social History Smoking Status: Never Smoked - CARDIAC Hx Cardiac Disorders: Yes Hx Cardia Arrhythmia: Yes Hx Hypertension: Yes Hx Internal Defibrillator: Yes - PULMONARY Hx Respiratory Disorders: Yes Hx Asthma: Yes - NEUROLOGICAL Hx Neurological Disorder: No - HEENT Hx HEENT Problems: No - RENAL Hx Chronic Kidney Disease: Yes Hx Dialysis: Yes Hx Renal Failure: Yes - ENDOCRINE/METABOLIC Hx Endocrine Disorders: Yes Hx Diabetes Mellitus Type 2: Yes - HEMATOLOGICAL/ONCOLOGICAL Hx Blood Disorders: Yes Hx Anemia: Yes Hx Cancer: Yes (prostate with seed implants) - INTEGUMENTARY Hx Dermatological Problems: No - MUSCULOSKELETAL/RHEUMATOLOGICAL Hx Musculoskeletal Disorders: Yes Hx Arthritis: Yes Hx Back Pain: Yes Hx Falls: No Hx Fractures: Yes (L foot) Hx Unsteady Gait: Yes - GASTROINTESTINAL Hx Gastrointestinal Disorders: Yes Hx Gastroesophageal Reflux: Yes - GENITOURINARY/GYNECOLOGICAL Hx Genitourinary Disorders: Yes Hx Prostate Problems: Yes - PSYCHIATRIC Hx Psychophysiologic Disorder: No Hx Substance Use: No - SURGICAL HISTORY Hx Surgeries: Yes Hx Cardiac Catheterization: Yes Hx Coronary Stent: Yes Other/Comment: Defibrilator placement - ANESTHESIA Hx Anesthesia Reactions: No Hx Malignant Hyperthermia: No Meds Allergies/Adverse Reactions: Allergies Allergy/AdvReac Type Severity Reaction Status Date / Time No Known Allergies Allergy Verified 02/09/18 09:55 - Medications Medications: Current Medications Atorvastatin Calcium (Lipitor) 40 mg PO HS [facility] Carvedilol (Coreg) 12.5 mg PO BID [facility] Last Admin: 02/17/18 10:54 Dose: Not Given Cinacalcet (Sensipar) 30 mg PO HS [facility] Metronidazole (Flagyl) 500 mg in 100 mls @ 100 mls/hr IVPB Q8 [facility]; Protocol Ceftriaxone Sodium (Rocephin 1 Gram Ivpb) 1 gm in 100 mls @ 200 mls/hr IVPB DAILY [facility]; Protocol Pantoprazole Sodium (Protonix Inj) 40 mg IVP DAILY [facility] Last Admin: 02/17/18 10:55 Dose: 40 mg Sevelamer HCl (Renagel) 800 mg PO AC [facility] Last Admin: 02/17/18 12:58 Dose: Not Given Vitamin B Complex/Vit C/Folic Acid (Nephro-Dionisio) 1 tab PO 0800 [facility] Results - Vital Signs Recent Vital Signs: Last Vital Signs Temp 98.1 F 02/17/18 08:48 Pulse 86 02/17/18 10:00 Resp 20 02/17/18 08:48 BP 101/64 02/17/18 10:54 Pulse Ox 95 02/17/18 08:48 - Labs Result Diagrams: 02/17/18 00:05 02/17/18 00:05 Labs: Laboratory Results - last 24 hr 02/17/18 02/17/18 02/17/18 00:05 00:05 00:05 WBC 7.4 RBC 3.08 L Hgb 9.7 L Hct 27.9 L MCV 90.6 MCH 31.5 MCHC 34.8 RDW 17.6 H Plt Count 208 MPV 10.4 Gran % 71.9 H Lymph % (Auto) 10.2 L [place] % (Auto) 15.6 H Eos % (Auto) 2.0 Baso % (Auto) 0.3 Gran # 5.34 Lymph # (Auto) 0.8 L [place] # (Auto) 1.2 H Eos # (Auto) 0.2 Baso # (Auto) 0.02 PT 20.6 H INR 1.79 APTT 31.5 Sodium 132 Potassium 3.9 Chloride 90 L Carbon Dioxide 32 Anion Gap 14 BUN 38 H Creatinine 5.1 H Est GFR ( Amer) 13 Est GFR (Non-Af Amer) 11 Random Glucose 97 Calcium 8.3 L Total Bilirubin 0.9 AST 25 ALT 26 Alkaline Phosphatase 128 H Total Protein 6.5 Albumin 3.1 Globulin 3.4 Albumin/Globulin Ratio 0.9 L Lipase 263
--- NOTE | 2018-02-17 15:52 | CP.PCM.CON ---
<Ayaan Bernal - Last Filed: 02/17/18 15:47> History of Present Illness - History of Present Illness History of Present Illness: PGY-4 GI Fellow Consult Note Pt is a 77 yo BM with ESRD on HD TThS, PVD, chronic anemia who presented with rectal bleeding. Pt with 3 episodes of blood mixed in stool and some episodes with some addison blood. Also reports some mild, diffuse, abd crampy pain, L worse than R. No precipitating or alleviating factors. Reportedly had CSPY about 4 years ago at another institution that was reportedly normal. Denied any SOB, lightheadedness, N/V. 12 point ROS negative other than stated above MHx: See above SurgHx: LUE AV fistula Medications: See MAR FamHx: Denied CRC SocHx: Denies alcohol, tobacco, drug use Allergies: NKDA Past Patient History - Infectious Disease Hx of Infectious Diseases: None - Past Social History Smoking Status: Never Smoked - CARDIAC Hx Cardiac Disorders: Yes Hx Cardia Arrhythmia: Yes Hx Hypertension: Yes Hx Internal Defibrillator: Yes - PULMONARY Hx Respiratory Disorders: Yes Hx Asthma: Yes - NEUROLOGICAL Hx Neurological Disorder: No - HEENT Hx HEENT Problems: No - RENAL Hx Chronic Kidney Disease: Yes Hx Dialysis: Yes Hx Renal Failure: Yes - ENDOCRINE/METABOLIC Hx Endocrine Disorders: Yes Hx Diabetes Mellitus Type 2: Yes - HEMATOLOGICAL/ONCOLOGICAL Hx Blood Disorders: Yes Hx Anemia: Yes Hx Cancer: Yes (prostate with seed implants) - INTEGUMENTARY Hx Dermatological Problems: No - MUSCULOSKELETAL/RHEUMATOLOGICAL Hx Musculoskeletal Disorders: Yes Hx Arthritis: Yes Hx Back Pain: Yes Hx Falls: No Hx Fractures: Yes (L foot) Hx Unsteady Gait: Yes - GASTROINTESTINAL Hx Gastrointestinal Disorders: Yes Hx Gastroesophageal Reflux: Yes - GENITOURINARY/GYNECOLOGICAL Hx Genitourinary Disorders: Yes Hx Prostate Problems: Yes - PSYCHIATRIC Hx Psychophysiologic Disorder: No Hx Substance Use: No - SURGICAL HISTORY Hx Surgeries: Yes Hx Cardiac Catheterization: Yes Hx Coronary Stent: Yes Other/Comment: Defibrilator placement - ANESTHESIA Hx Anesthesia Reactions: No Hx Malignant Hyperthermia: No Meds Allergies/Adverse Reactions: Allergies Allergy/AdvReac Type Severity Reaction Status Date / Time No Known Allergies Allergy Verified 02/09/18 09:55 - Medications Medications: Current Medications Atorvastatin Calcium (Lipitor) 40 mg PO HS [facility] Carvedilol (Coreg) 12.5 mg PO BID [facility] Last Admin: 02/17/18 10:54 Dose: Not Given Cinacalcet (Sensipar) 30 mg PO HS [facility] Metronidazole (Flagyl) 500 mg in 100 mls @ 100 mls/hr IVPB Q8 [facility]; Protocol Ceftriaxone Sodium (Rocephin 1 Gram Ivpb) 1 gm in 100 mls @ 200 mls/hr IVPB DAILY [facility]; Protocol Pantoprazole Sodium (Protonix Inj) 40 mg IVP DAILY [facility] Last Admin: 02/17/18 10:55 Dose: 40 mg Sevelamer HCl (Renagel) 800 mg PO AC [facility] Last Admin: 02/17/18 12:58 Dose: Not Given Vitamin B Complex/Vit C/Folic Acid (Nephro-Dionisio) 1 tab PO 0800 [facility] Physical Exam - Constitutional Appears: No Acute Distress, Chronically Ill - Head Exam Head Exam: ATRAUMATIC, NORMAL INSPECTION - Eye Exam Eye Exam: EOMI. absent: Conjunctival injection, Scleral icterus - ENT Exam ENT Exam: Mucous Membranes Dry, Normal External Ear Exam. absent: Mucous Membranes Moist - Respiratory Exam Respiratory Exam: Clear to Auscultation Bilateral, NORMAL BREATHING PATTERN - Cardiovascular Exam Cardiovascular Exam: REGULAR RHYTHM, RRR - GI/Abdominal Exam GI & Abdominal Exam: Distended (mildly), Normal Bowel Sounds, Soft, Tenderness (diffusely ttp, but worse on L without guarding). absent: Bruit, Diminished Bowel Sounds, Firm, Guarding, Hernia, Organomegaly, Pulsatile Mass, Rebound, Rigid - Rectal Exam Rectal Exam: Deferred Additional comments: (pt undergoing HD at the time of exam) - Neurological Exam Neurological exam: Alert, CN II-XII Intact - Psychiatric Exam Psychiatric exam: Normal Affect, Normal Mood - Skin Skin Exam: Normal Color, Warm Results - Vital Signs Recent Vital Signs: Last Vital Signs Temp 98.1 F 02/17/18 08:48 Pulse 86 02/17/18 10:00 Resp 20 02/17/18 08:48 BP 101/64 02/17/18 10:54 Pulse Ox 95 02/17/18 08:48 - Labs Result Diagrams: 02/17/18 00:05 02/17/18 00:05 Labs: Laboratory Results - last 24 hr 02/17/18 02/17/18 02/17/18 00:05 00:05 00:05 WBC 7.4 RBC 3.08 L Hgb 9.7 L Hct 27.9 L MCV 90.6 MCH 31.5 MCHC 34.8 RDW 17.6 H Plt Count 208 MPV 10.4 Gran % 71.9 H Lymph % (Auto) 10.2 L [place] % (Auto) 15.6 H Eos % (Auto) 2.0 Baso % (Auto) 0.3 Gran # 5.34 Lymph # (Auto) 0.8 L [place] # (Auto) 1.2 H Eos # (Auto) 0.2 Baso # (Auto) 0.02 PT 20.6 H INR 1.79 APTT 31.5 Sodium 132 Potassium 3.9 Chloride 90 L Carbon Dioxide 32 Anion Gap 14 BUN 38 H Creatinine 5.1 H Est GFR ( Amer) 13 Est GFR (Non-Af Amer) 11 Random Glucose 97 Calcium 8.3 L Total Bilirubin 0.9 AST 25 ALT 26 Alkaline Phosphatase 128 H Total Protein 6.5 Albumin 3.1 Globulin 3.4 Albumin/Globulin Ratio 0.9 L Lipase 263 Assessment & Plan - Assessment and Plan (Free Text) Assessment: 77 yo BM with ESRD, Ischemic Heart disease, PVD, HTN presenting with bright red blood per rectum. # Painful hematochezia: Suspect related to Ischemic Colitis given history, risk factors and exam. Prelim report on CT did not comment, but final read pending. Also, given mild ascites (cardiac?) SBP on differential but seem less likely. Diverticulosis seen on CT as possible source but typically painless in nature. Last CSPY reportedly 5 years ago was normal but not report available. # Ascites: Mild. No h/o cirrhosis. Suspect cardiac in nature. Plan: - Start Ceftriaxone and Metronidazole for Ischemic Colitis - CLD - Monitor Hgb - IVF per primary team - Supp Care Thank you for the consult. Will continue to follow. Pt seen and examined with Dr. Rosa; please see attestation for further recs/changes Ayaan Bernal, PGY-4 <Cecily Rosa V - Last Filed: 02/17/18 17:10> Meds - Medications Medications: Current Medications Atorvastatin Calcium (Lipitor) 40 mg PO HS [facility] Carvedilol (Coreg) 12.5 mg PO BID [facility] Last Admin: 02/17/18 10:54 Dose: Not Given Cinacalcet (Sensipar) 30 mg PO HS [facility] Metronidazole (Flagyl) 500 mg in 100 mls @ 100 mls/hr IVPB Q8 [facility]; Protocol Ceftriaxone Sodium (Rocephin 1 Gram Ivpb) 1 gm in 100 mls @ 200 mls/hr IVPB DAILY [facility]; Protocol Pantoprazole Sodium (Protonix Inj) 40 mg IVP DAILY [facility] Last Admin: 02/17/18 10:55 Dose: 40 mg Sevelamer HCl (Renagel) 800 mg PO AC [facility] Last Admin: 02/17/18 12:58 Dose: Not Given Vitamin B Complex/Vit C/Folic Acid (Nephro-Dionisio) 1 tab PO 0800 [facility] Results - Vital Signs Recent Vital Signs: Last Vital Signs Temp 98.1 F 02/17/18 08:48 Pulse 86 02/17/18 10:00 Resp 20 02/17/18 08:48 BP 101/64 02/17/18 10:54 Pulse Ox 95 02/17/18 08:48 - Labs Result Diagrams: 02/17/18 00:05 02/17/18 00:05 Labs: Laboratory Results - last 24 hr 02/17/18 02/17/18 02/17/18 00:05 00:05 00:05 WBC 7.4 RBC 3.08 L Hgb 9.7 L Hct 27.9 L MCV 90.6 MCH 31.5 MCHC 34.8 RDW 17.6 H Plt Count 208 MPV 10.4 Gran % 71.9 H Lymph % (Auto) 10.2 L [place] % (Auto) 15.6 H Eos % (Auto) 2.0 Baso % (Auto) 0.3 Gran # 5.34 Lymph # (Auto) 0.8 L [place] # (Auto) 1.2 H Eos # (Auto) 0.2 Baso # (Auto) 0.02 PT 20.6 H INR 1.79 APTT 31.5 Sodium 132 Potassium 3.9 Chloride 90 L Carbon Dioxide 32 Anion Gap 14 BUN 38 H Creatinine 5.1 H Est GFR ( Amer) 13 Est GFR (Non-Af Amer) 11 Random Glucose 97 Calcium 8.3 L Total Bilirubin 0.9 AST 25 ALT 26 Alkaline Phosphatase 128 H Total Protein 6.5 Albumin 3.1 Globulin 3.4 Albumin/Globulin Ratio 0.9 L Lipase 263 Attending/Attestation - Attestation I have personally seen and examined this patient.: Yes I have fully participated in the care of the patient.: Yes I have reviewed all pertinent clinical information: Yes Notes (Text): This is an addendum to GI consult report dictated by the GI Fellow. The patient was seen and examined earlier. Medical records, lab studies, imagings were reviewed. Last 24 hours events reviewed. Agreed with the above treatment plan as outlined in GI Fellow 's notes with the addition of the following Patient does have significant tenderness at the left side of abdomen, hx of bleeding per rectum, maroon stool. CT was reviewed. clinically suggestive of ischemic colitis. Differential should include infectious colitis, C.diff, less likely IBD. Follow-up stool studies. Will start empiric antibiotics with Ceftriaxone and Flagyl. Clear liquid diet. Consider elective colonoscopy. 02/17/18 17:07
--- NOTE | 2018-02-17 16:41 | CT ---
Date of service: 2018-02-17 01:19:33 PROCEDURE: CT Abdomen and Pelvis with Oral contrast. HISTORY: Abdominal pain COMPARISON: Comparison made with prior study dated 02/11/2018. TECHNIQUE: Contiguous axial images of the abdomen and pelvis performed without oral or intravenous contrast material. Additional 2D sagittal and coronal reformats generated. Radiation dose: Total exam DLP = 655.91 mGy-cm. This CT exam was performed using one or more of the following dose reduction techniques: Automated exposure control, adjustment of the mA and/or kV according to patient size, and/or use of iterative reconstruction technique. FINDINGS: LOWER THORAX: Heart is enlarged. No significant pericardial effusion.. Note intravascular compartment of the heart exhibits low-attenuation suggesting chronic anemia. Clinical correlation recommended. Small hiatal hernia. Small left and trace right-sided effusion with minor left and minimal right basilar atelectasis. LIVER: Unenhanced liver appears unremarkable without masses collections or calcifications. No gross ductal dilatation. Abdominal ascites present most notably about the liver and right aspect of the. Prominent IVC. Rule out on mild chronic pulmonary venous congestion. Abdomen/pelvis more so than left. GALLBLADDER AND BILE DUCTS: Gallbladder is incompletely distended which may in part account for thick-walled appearance however given intraluminal gallbladder calculi and possibly 1 or 2 smaller calculi in the gallbladder neck the possibility of acute cholecystitis should be considered. Clinical correlation recommended. PANCREAS: Pancreas appears slightly atrophic and fatty replaced. No obvious pancreatic masses collections. Questionable of small calcifications pancreatic tail. SPLEEN: Spleen exhibits normal size and attenuation pattern.. ADRENALS: Mildly prominent adrenal glands. KIDNEYS AND URETERS: Kidneys are atrophic.. No evidence of nephrolithiasis or hydronephrosis BLADDER: Urinary bladder incompletely distended which in part accounts for thick-walled appearance. Muscular hypertrophy may contribute. Other intrinsic/invasive wall lesion not excluded. REPRODUCTIVE: Multiple of radiation implant seeds are present within the prostate gland. APPENDIX: The appendix not seen with certainty however no obvious inflammatory changes right lower quadrant of the abdomen to suggest acute appendicitis. BOWEL: Evaluation of the bowel is somewhat limited due to the lack of oral contrast material. Stomach is distended with food debris liquid and air. Visualized loops of small bowel exhibit relatively normal contour and caliber. No evidence of acute mechanical small bowel obstruction. Stool and air seen throughout the large bowel.. There does appear to be a few colonic diverticula of. No definitive radiographic evidence of acute diverticulitis. PERITONEUM: Moderate amount of abdominal ascites present. No gross free intraperitoneal air. LYMPH NODES: Unremarkable. No enlarged lymph nodes. VASCULATURE: Unremarkable. No aortic aneurysm. There is mild aortic atherosclerotic calcification or mural plaque present. BONES: Multilevel degenerative spondylosis of the lower thoracic and lumbar spine. Sclerosis and partial fusion both SI joints. OTHER FINDINGS: Mild anasarca. IMPRESSION: Small left and trace trace right-sided effusions with commensurate atelectasis. Abdominal ascites. Cholelithiasis with small calculi in the gallbladder neck region. Gallbladder wall is thickened likely due to incomplete distention however rule out acute cholecystitis. Bilateral renal atrophy. Diverticulosis without radiographic evidence acute diverticulitis. Cardiomegaly with findings consistent with anemia. Rule out mild CHF. Anasarca.
--- NOTE | 2018-02-17 17:34 | CARD ---
APPROVED REPORT Date of service: 02/17/2018 EKG Measurement Heart [id number] <Conclusion> Sinus rhythm with occasional premature ventricular complexes T wave abnormality, consider lateral ischemia Prolonged QT Abnormal ECG
[2018-02-17] MEDS: metroNIDAZOLE IV 500 mg/100 ml 500 MG/100 ML BAG IVPB SCH (21:31)
[2018-02-18] MEDS: metroNIDAZOLE IV 500 mg/100 ml 500 MG/100 ML BAG IVPB SCH ×3 (06:31→21:16)
--- NOTE | 2018-02-18 08:15 | CP.PCM.PN ---
<Sudarshan Ramsey - Last Filed: 02/18/18 19:50> Subjective - Date & Time of Evaluation Date of Evaluation: 02/18/18 Time of Evaluation: 07:40 - Subjective Subjective: Progress Note for Dr. Sinha Service Patient seen and examined at bedside. No acute complaints overnight. Reports abdominal pain improved, no BMs since yesterday so unable to determine any further melenotic stools. Denies addison blood from rectum in absence of a BM. Objective - Vital Signs/Intake and Output Vital Signs (last 24 hours): Temp Pulse Resp BP Pulse Ox 97.8 F 92 H 20 103/58 L 99 02/18/18 08:11 02/18/18 08:11 02/18/18 08:11 02/18/18 08:11 02/18/18 08:11 Intake and Output: 02/18/18 02/18/18 06:59 18:59 Intake Total 800 Balance 800 - Medications Medications: Current Medications Atorvastatin Calcium (Lipitor) 40 mg PO HS [facility] Last Admin: 02/17/18 21:31 Dose: 40 mg Carvedilol (Coreg) 12.5 mg PO BID [facility] Last Admin: 02/17/18 17:37 Dose: Not Given Cinacalcet (Sensipar) 30 mg PO HS [facility] Last Admin: 02/17/18 21:30 Dose: 30 mg Metronidazole (Flagyl) 500 mg in 100 mls @ 100 mls/hr IVPB Q8 [facility]; Protocol Last Admin: 02/18/18 06:31 Dose: 100 mls/hr Ceftriaxone Sodium (Rocephin 1 Gram Ivpb) 1 gm in 100 mls @ 200 mls/hr IVPB DAILY [facility]; Protocol Pantoprazole Sodium (Protonix Inj) 40 mg IVP DAILY [facility] Last Admin: 02/17/18 10:55 Dose: 40 mg Sevelamer HCl (Renagel) 800 mg PO AC [facility] Last Admin: 02/17/18 17:37 Dose: 800 mg Vitamin B Complex/Vit C/Folic Acid (Nephro-Dionisio) 1 tab PO 0800 [facility] - Labs Labs: 02/17/18 00:05 02/17/18 00:05 PT 20.6 SECONDS (9.4-12.5) H 02/17/18 00:05 INR 1.79 02/17/18 00:05 APTT 31.5 Seconds (25.1-36.5) 02/17/18 00:05 - Additional Findings Additional findings: - Constitutional Appears: Non-toxic, No Acute Distress - Head Exam Head Exam: ATRAUMATIC, NORMAL INSPECTION, NORMOCEPHALIC - Eye Exam Eye Exam: EOMI, Normal appearance. absent: Conjunctival injection, Scleral icterus - ENT Exam ENT Exam: Mucous Membranes Moist - Neck Exam Neck Exam: Full ROM - Respiratory Exam Respiratory Exam: Clear to Ausculation Bilateral, NORMAL BREATHING PATTERN. absent: Accessory Muscle Use, Chest Wall Tenderness, Rales, Rhonchi, Wheezes - Cardiovascular Exam Cardiovascular Exam: REGULAR RHYTHM, RRR, +S1, +S2. absent: Bradycardia, Tachycardia, JVD - GI/Abdominal Exam GI & Abdominal Exam: Soft, Normal Bowel Sounds, Tenderness (mild diffuse dis comfort, only worsened with palpation at bilateral lower quadrants). absent: Distended, Firm, Rigid, Diminished Bowel Sounds, Hyperactive Bowel Sounds, Hypoactive Bowel Sounds - Extremities Exam Extremities Exam: Pedal Edema (+1 pitting edema in bilateral edema from feet to mid-shins, +1 from mid-shins to knees). absent: Calf Tenderness, Tenderness - Back Exam Back Exam: absent: CVA tenderness (L), CVA tenderness (R) - Neurological Exam awake and alert, following all commands appropriately, moving extremities spontaneously - Psychiatric Exam Psychiatric exam: Normal Affect, Normal Mood - Skin Skin Exam: Dry, Intact, Normal Color (except for some discoloration at distal bilateral LE), Warm Assessment and Plan - Assessment and Plan (Free Text) Assessment: This is a 77 yo M with PMH of ESRD on HD //Mon, PVD, anemia of chronic disease, and ischemic heart disease who [place] [facility] [place] complaint of 3 episodes of dark blood in his stool, which began 2 days ago. He was admitted for suspected GI bleed, pending GI eval and recs. Plan: 1) Dark blood with stooling -lower GI bleed vs upper GI bleed vs hemorrhoids vs ischemic collitis -no pain directly with bleeds and/or stooling, but some generalized discomfort, could be indicative of ischemic collitis -Hgb stable today, continue to monitor -GI consulted, appreciate their recs; continue -advance diet as tolerated, up to Renal diet -Protonix IV daily 2) ESRD -Nephro consulted for continuing HD -continue home sevelamer and cinacalcet Dispo: Tolerating diet, no further blood BMs reported, likely d/c tomorrow after HD Ppx: Protonix covers for GI, SCDs for DVT Reviewed and discussed with attending, Dr. Sinha <Rodrigo Sinha S - Last Filed: 02/18/18 20:25> Objective - Vital Signs/Intake and Output Vital Signs (last 24 hours): Temp Pulse Resp BP Pulse Ox 97.8 F 85 20 98/57 L 99 02/18/18 08:11 02/18/18 18:00 02/18/18 08:11 02/18/18 17:20 02/18/18 08:11 Intake and Output: 02/18/18 02/19/18 18:59 06:59 Intake Total 1390 Balance 1390 - Medications Medications: Current Medications Atorvastatin Calcium (Lipitor) 40 mg PO HS [facility] Last Admin: 02/17/18 21:31 Dose: 40 mg Carvedilol (Coreg) 12.5 mg PO BID [facility] Last Admin: 02/18/18 17:20 Dose: Not Given Cinacalcet (Sensipar) 30 mg PO HS [facility] Last Admin: 02/17/18 21:30 Dose: 30 mg Metronidazole (Flagyl) 500 mg in 100 mls @ 100 mls/hr IVPB Q8 [facility]; Protocol Last Admin: 02/18/18 12:59 Dose: 100 mls/hr Ceftriaxone Sodium (Rocephin 1 Gram Ivpb) 1 gm in 100 mls @ 200 mls/hr IVPB DAILY [facility]; Protocol Last Admin: 02/18/18 09:51 Dose: 200 mls/hr Pantoprazole Sodium (Protonix Inj) 40 mg IVP DAILY [facility] Last Admin: 02/18/18 09:50 Dose: 40 mg Sevelamer HCl (Renagel) 800 mg PO AC [facility] Last Admin: 02/18/18 17:22 Dose: 800 mg Vitamin B Complex/Vit C/Folic Acid (Nephro-Dionisio) 1 tab PO 0800 [facility] Last Admin: 02/18/18 09:00 Dose: 1 tab - Labs Labs: 02/18/18 08:45 02/18/18 08:45 PT 20.6 SECONDS (9.4-12.5) H 02/17/18 00:05 INR 1.79 02/17/18 00:05 APTT 31.5 Seconds (25.1-36.5) 02/17/18 00:05 Assessment and Plan - Assessment and Plan (Free Text) Plan: Pt seen and examined. I have reviewed the note of the medical support assistant and agree with it. I have reviewed the meds and labs of the pt. I have discussed the assessment and plan with the resident. Pt with GI bleeding that has resolved. Pt is being followed by GI . H ay have colitis and is on IV Abx. I spoke to the pt' s to give her an update. He had HD yesterday. Possible D/C in am.
[2018-02-18] MEDS: Multivitamin Vitamin B Complex (Nephro-Vite) Tab PO SCH (09:00)
[2018-02-18 09:08] LABS: BASO # 0.03 K/mm3 (0.0-2.0); BASO % 0.4 % (0.0-3.0); EOS # 0.3 (0.0-0.7); EOS % 3.7 % (1.5-5.0); GRAN # 4.74 (1.4-6.5); GRAN % 67.6 % (50.0-68.0); HEMOGLOBIN 9.9 g/dL (14.0-18.0); LYMPH % 14.8 % (22.0-35.0); MEAN CELL VOLUME 90.2 fl (80.0-105.0); MEAN CORPUSCULAR HEMOGLOBIN 31.2 pg (25.0-35.0); MEAN CORPUSCULAR HGB CONC 34.6 g/dl (31.0-37.0); MEAN PLATELET VOLUME 9.9 fl (7.0-11.0); MONO % 13.5 % (1.0-6.0); RBC 3.17 10^6/uL (3.5-6.1); RED CELL DISTRIBUTION WIDTH 17.3 % (11.5-14.5)
[2018-02-18 09:13] LABS: CALCIUM 8.1 mg/dL (8.4-10.5)
[2018-02-18] MEDS: cefTRIAXone 1 gm 1 GM/100 ML BAG IVPB SCH (09:51)
--- NOTE | 2018-02-18 09:55 | CP.PCM.PN ---
Subjective - Date & Time of Evaluation Date of Evaluation: 02/18/18 Time of Evaluation: 09:55 - Subjective Subjective: Nephrology Consultation Note: Assessment: Stable GI bleed Hypertensive Chronic Kidney Disease (I12.0) End stage renal disease (N18.6) dependence on hemodialysis (Z99.2) (TTS) via AVF Anemia (D64.9), Hyperphosphatemia (E83.39), Secondary Hyperparathyroidism (E21.1), HTN (I12.0), PVD, CAD Plan: continue with HD per TTS. Continue with Nephrovite 1 tab/day. PRBC as needed for anemia. on UMU with dialysis as last Hb 9.9 BP on low side. hold BP meds Glycemic control, Dialysis consistent diet Further work up/management as per primary team Dose meds/antibiotics (if needed) for ESRD status. Avoid fleets enema/magnesium based laxatives. added PPI Gi eval noted will check echo as well to assess LV function Thanks for allowing me to participate in care of your patient. Will follow patient with you. Please call if any Qs. had d/w team Dr Kurt Martinez Office: [phone] Chief Complaint;blood in stool HPI: Pt is a 77 M with hx of ESRD on hemodialysis (TTS) via AVF, last dialysis sat, chronic anemia, hyperphosphatemia, secondary hyperparathyroidism, PVD, CAD, hypertension presented with complaints of blood on stool and dark stool Renal consult requested for ESRD management. otherwise he feels in usual health. pt on HD x 5 years ROS: Cardiovascular: No chest pain. Pulmonary: No shortness of breath Gastrointestinal: denies abdominal pain No nausea. No vomiting. Genitourinary: No pain while urinating. Denies blood in urine. All other negative except as mentioned in HPI Physical Examination: General Appearance: Comfortable, in no acute respiratory distress, co-operative . Vitals reviewed and noted as below Head; Atraumatic, normocephalic ENT: no ulcers no thrush. Tongue is midline. Oropharynx: no rash or ulcers. EYES: Pupils are equal, round and reactive to light accommodation. Eye muscles and extraocular movement intact. Sclera is anicteric. Neck; supple no lymphadenopathy, no thyromegaly or bruit Lungs: Normal respiratory rate/effort. Breath sounds bilateral equal and clear Heart: Normal rate. s1s2 normal. No rub or gallop. Extremities: 1+ edema. No varicose veins Neurological: Patient is alert, awake and oriented to person, place and time. No focal deficit. Strength bilateral appropriate and equal Skin: Warm and dry. Normal turgor. No rash. Palpitation: Normal elasticity for age Abdomen: Abdomen is soft. Bowel sounds +. There is no abdominal tenderness, no guarding/rigidity or organomegaly Psych: normal insight and normal affect/mood MSK: no joint tenderness or swelling. Digits and nails normal, no deformity : kidney or bladder not palpable Access: AVF Labs/imaging reviewed. Past medical history, past surgical history, family history, social history, allergy reviewed and noted as below Family Hx: no hx of CKD. Non contributory Objective - Vital Signs/Intake and Output Vital Signs (last 24 hours): Temp Pulse Resp BP Pulse Ox 97.8 F 92 H 20 103/58 L 99 02/18/18 08:11 02/18/18 09:49 02/18/18 08:11 02/18/18 08:11 02/18/18 08:11 Intake and Output: 02/18/18 02/18/18 06:59 18:59 Intake Total 800 Balance 800 - Medications Medications: Current Medications Atorvastatin Calcium (Lipitor) 40 mg PO [facility] Last Admin: 02/17/18 21:31 Dose: 40 mg Carvedilol (Coreg) 12.5 mg PO BID [facility] Last Admin: 02/18/18 09:49 Dose: 12.5 mg Cinacalcet (Sensipar) 30 mg PO HS [facility] Last Admin: 02/17/18 21:30 Dose: 30 mg Metronidazole (Flagyl) 500 mg in 100 mls @ 100 mls/hr IVPB Q8 [facility]; Protocol Last Admin: 02/18/18 06:31 Dose: 100 mls/hr Ceftriaxone Sodium (Rocephin 1 Gram Ivpb) 1 gm in 100 mls @ 200 mls/hr IVPB DAILY [facility]; Protocol Last Admin: 02/18/18 09:51 Dose: 200 mls/hr Pantoprazole Sodium (Protonix Inj) 40 mg IVP DAILY [facility] Last Admin: 02/18/18 09:50 Dose: 40 mg Sevelamer HCl (Renagel) 800 mg PO AC [facility] Last Admin: 02/18/18 07:51 Dose: 800 mg Vitamin B Complex/Vit C/Folic Acid (Nephro-Dionisio) 1 tab PO 0800 [facility] Last Admin: 02/18/18 09:00 Dose: 1 tab - Labs Labs: 02/18/18 08:45 02/18/18 08:45 PT 20.6 SECONDS (9.4-12.5) H 02/17/18 00:05 INR 1.79 02/17/18 00:05 APTT 31.5 Seconds (25.1-36.5) 02/17/18 00:05
--- NOTE | 2018-02-18 12:33 | CP.PCM.PN ---
<Ayaan Bernal - Last Filed: 02/18/18 12:30> Subjective - Date & Time of Evaluation Date of Evaluation: 02/18/18 Time of Evaluation: 09:45 - Subjective Subjective: PGY-4 GI Fellow Prog Note Pt sitting up eating when seen this AM. States no further abd pain. Reports BM yesterday that was brown and w/o any signs of bleeding. Requesting diet to be advanced. 5 point ROS negative other than stated above Objective - Vital Signs/Intake and Output Vital Signs (last 24 hours): Temp Pulse Resp BP Pulse Ox 97.8 F 92 H 20 103/58 L 99 02/18/18 08:11 02/18/18 09:49 02/18/18 08:11 02/18/18 08:11 02/18/18 08:11 Intake and Output: 02/18/18 02/18/18 06:59 18:59 Intake Total 800 Balance 800 - Medications Medications: Current Medications Atorvastatin Calcium (Lipitor) 40 mg PO HS [facility] Last Admin: 02/17/18 21:31 Dose: 40 mg Carvedilol (Coreg) 12.5 mg PO BID [facility] Last Admin: 02/18/18 09:49 Dose: 12.5 mg Cinacalcet (Sensipar) 30 mg PO HS [facility] Last Admin: 02/17/18 21:30 Dose: 30 mg Metronidazole (Flagyl) 500 mg in 100 mls @ 100 mls/hr IVPB Q8 [facility]; Protocol Last Admin: 02/18/18 06:31 Dose: 100 mls/hr Ceftriaxone Sodium (Rocephin 1 Gram Ivpb) 1 gm in 100 mls @ 200 mls/hr IVPB DAILY [facility]; Protocol Last Admin: 02/18/18 09:51 Dose: 200 mls/hr Pantoprazole Sodium (Protonix Inj) 40 mg IVP DAILY [facility] Last Admin: 02/18/18 09:50 Dose: 40 mg Sevelamer HCl (Renagel) 800 mg PO AC [facility] Last Admin: 02/18/18 07:51 Dose: 800 mg Vitamin B Complex/Vit C/Folic Acid (Nephro-Dionisio) 1 tab PO 0800 [facility] Last Admin: 02/18/18 09:00 Dose: 1 tab - Labs Labs: 02/18/18 08:45 02/18/18 08:45 PT 20.6 SECONDS (9.4-12.5) H 02/17/18 00:05 INR 1.79 02/17/18 00:05 APTT 31.5 Seconds (25.1-36.5) 02/17/18 00:05 - Constitutional Appears: Non-toxic, No Acute Distress - Head Exam Head Exam: ATRAUMATIC, NORMAL INSPECTION - Eye Exam Eye Exam: EOMI. absent: Scleral icterus - ENT Exam ENT Exam: Mucous Membranes Moist. absent: Mucous Membranes Dry - GI/Abdominal Exam GI & Abdominal Exam: Distended (mildly), Soft, Normal Bowel Sounds. absent: Bruit, Firm, Guarding, Rigid, Tenderness, Mass, Organomegaly, Pulsatile Mass Assessment and Plan - Assessment and Plan (Free Text) Assessment: 77 yo BM with ESRD, Ischemic Heart disease, PVD, HTN presenting with bright red blood per rectum. # Painful hematochezia: Suspect related to Ischemic Colitis given history, risk factors and exam. Prelim report on CT did not comment, but final read pending. Also, given mild ascites (cardiac?) SBP on differential but seem less likely. Diverticulosis seen on CT as possible source but typically painless in nature. Last CSPY reportedly 5 years ago was normal but not report available. # Ascites: Mild. No h/o cirrhosis. Suspect cardiac in nature. Plan: - Ceftriaxone and Metronidazole, continue - CLD -> Renal diet today - Monitor Hgb - IVF per primary team - Supp Care Thank you for the consult. Will continue to follow. Pt discussed with Dr. Rosa; please see attestation for further recs/changes Ayaan Bernal, PGY-4 <Cecily Rosa V - Last Filed: 02/18/18 15:04> Objective - Vital Signs/Intake and Output Vital Signs (last 24 hours): Temp Pulse Resp BP Pulse Ox 97.8 F 85 20 103/58 L 99 02/18/18 08:11 02/18/18 14:00 02/18/18 08:11 02/18/18 08:11 02/18/18 08:11 Intake and Output: 02/18/18 02/18/18 06:59 18:59 Intake Total 800 800 Balance 800 800 - Medications Medications: Current Medications Atorvastatin Calcium (Lipitor) 40 mg PO HS [facility] Last Admin: 02/17/18 21:31 Dose: 40 mg Carvedilol (Coreg) 12.5 mg PO BID [facility] Last Admin: 02/18/18 09:49 Dose: 12.5 mg Cinacalcet (Sensipar) 30 mg PO HS [facility] Last Admin: 02/17/18 21:30 Dose: 30 mg Metronidazole (Flagyl) 500 mg in 100 mls @ 100 mls/hr IVPB Q8 [facility]; Protocol Last Admin: 02/18/18 12:59 Dose: 100 mls/hr Ceftriaxone Sodium (Rocephin 1 Gram Ivpb) 1 gm in 100 mls @ 200 mls/hr IVPB DAILY [facility]; Protocol Last Admin: 02/18/18 09:51 Dose: 200 mls/hr Pantoprazole Sodium (Protonix Inj) 40 mg IVP DAILY [facility] Last Admin: 02/18/18 09:50 Dose: 40 mg Sevelamer HCl (Renagel) 800 mg PO AC [facility] Last Admin: 02/18/18 12:59 Dose: 800 mg Vitamin B Complex/Vit C/Folic Acid (Nephro-Dionisio) 1 tab PO 0800 [facility] Last Admin: 02/18/18 09:00 Dose: 1 tab - Labs Labs: 02/18/18 08:45 02/18/18 08:45 PT 20.6 SECONDS (9.4-12.5) H 02/17/18 00:05 INR 1.79 02/17/18 00:05 APTT 31.5 Seconds (25.1-36.5) 02/17/18 00:05 Attending/Attestation - Attestation I have personally seen and examined this patient.: Yes I have fully participated in the care of the patient.: Yes I have reviewed all pertinent clinical information, including history, physical exam and plan: Yes Notes (Text): This is an addendum to GI followup report dictated by the GI Fellow. The patient was seen and evaluated earlier. Medical records, lab studies, imagings were reviewed. Last 24 hours events reviewed. Agreed with the above treatment plan as outlined in GI Fellow's notes with the addition of the following Clinically better, abdominal discomfort improving. No focal tenderness in the RUQ. CT findings reviewed. Gallstones probably asymptomatic. Mildly elevated ALK maybe bone etiology in view of ESRD. Clinically more suggestive of colitis in view of left sided abdominal pain with bleeding per rectum. Continue the antibiotics, and slowly advance the diet. May benefit from elective colonoscopic evaluation. 02/18/18 15:01
[2018-02-19] MEDS: metroNIDAZOLE IV 500 mg/100 ml 500 MG/100 ML BAG IVPB SCH ×3 (05:57→22:05)
[2018-02-19 06:21] LABS: HEMOGLOBIN 10.3 g/dL (14.0-18.0); MEAN CELL VOLUME 89.9 fl (80.0-105.0); MEAN CORPUSCULAR HEMOGLOBIN 30.7 pg (25.0-35.0); MEAN CORPUSCULAR HGB CONC 34.1 g/dl (31.0-37.0); MEAN PLATELET VOLUME 10.3 fl (7.0-11.0); RBC 3.36 10^6/uL (3.5-6.1); RED CELL DISTRIBUTION WIDTH 17.3 % (11.5-14.5); WHITE BLOOD COUNT 7.1 10^3/uL (4.5-11.0)
[2018-02-19] MEDS: Multivitamin Vitamin B Complex (Nephro-Vite) Tab PO SCH (08:51)
[2018-02-19] MEDS: cefTRIAXone 1 gm 1 GM/100 ML BAG IVPB SCH (10:00)
--- NOTE | 2018-02-19 10:23 | CP.PCM.DIS ---
Provider - Provider Date of Admission: 02/16/18 23:56 Attending physician: Rodrigo Sinha MD Consults: 02/16/18 23:56 Gastroenterology Consult Routine Comment: Consulting Provider: Cecily Rosa V Consulting Physician: Cecily Rosa V Reason for Consult: Bright red blood per rectum 02/17/18 04:44 Social Work Referral Routine Comment: from [facility] Physician Instructions: Reason For Exam: discharge planning 02/17/18 08:48 Consult [Physician Consult] Routine Comment: Consulting Provider: Jeffry Hinton Consulting Physician: Jeffry Hinton Reason for Consult: dialysis Hospital Course - Lab Results Lab Results: Most Recent Lab Values WBC 7.1 10^3/uL (4.5-11.0) 02/19/18 05:35 RBC 3.36 10^6/uL (3.5-6.1) L 02/19/18 05:35 Hgb 10.3 g/dL (14.0-18.0) L 02/19/18 05:35 Hct 30.2 % (42.0-52.0) L 02/19/18 05:35 MCV 89.9 fl (80.0-105.0) 02/19/18 05:35 MCH 30.7 pg (25.0-35.0) 02/19/18 05:35 MCHC 34.1 g/dl (31.0-37.0) 02/19/18 05:35 RDW 17.3 % (11.5-14.5) H 02/19/18 05:35 Plt Count 227 10^3/uL (120.0-450.0) 02/19/18 05:35 MPV 10.3 fl (7.0-11.0) 02/19/18 05:35 Gran % 67.6 % (50.0-68.0) 02/18/18 08:45 Lymph % (Auto) 14.8 % (22.0-35.0) L 02/18/18 08:45 [place] % (Auto) 13.5 % (1.0-6.0) H 02/18/18 08:45 Eos % (Auto) 3.7 % (1.5-5.0) 02/18/18 08:45 Baso % (Auto) 0.4 % (0.0-3.0) 02/18/18 08:45 Gran # 4.74 (1.4-6.5) 02/18/18 08:45 Lymph # (Auto) 1.0 (1.2-3.4) L 12 08:45 [place] # (Auto) 1.0 (0.1-0.6) H 02/18/18 08:45 Eos # (Auto) 0.3 (0.0-0.7) 02/18/18 08:45 Baso # (Auto) 0.03 K/mm3 (0.0-2.0) 02/18/18 08:45 PT 20.6 SECONDS (9.4-12.5) H 02/17/18 00:05 INR 1.79 02/17/18 00:05 APTT 31.5 Seconds (25.1-36.5) 02/17/18 00:05 Sodium 134 mmol/L (132-148) 02/18/18 08:45 Potassium 3.9 mmol/L (3.6-5.0) 02/18/18 08:45 Chloride 96 mmol/L (98-107) L 02/18/18 08:45 Carbon Dioxide 30 mmol/L (21-33) 02/18/18 08:45 Anion Gap 12 (10-20) 02/18/18 08:45 BUN 26 mg/dL (7-21) H 02/18/18 08:45 Creatinine 4.4 mg/dl (0.8-1.5) H 02/18/18 08:45 Est GFR ( Amer) 16 02/18/18 08:45 Est GFR (Non-Af Amer) 13 02/18/18 08:45 Random Glucose 84 mg/dL (70-110) 02/18/18 08:45 Calcium 8.1 mg/dL (8.4-10.5) L 02/18/18 08:45 Total Bilirubin 0.9 mg/dL (0.2-1.3) 02/17/18 00:05 AST 25 U/L (17-59) 02/17/18 00:05 ALT 26 U/L (7-56) 02/17/18 00:05 Alkaline Phosphatase 128 U/L (38-126) H 02/17/18 00:05 Total Protein 6.5 g/dL (5.8-8.3) 02/17/18 00:05 Albumin 3.1 g/dL (3.0-4.8) 02/17/18 00:05 Globulin 3.4 gm/dL 02/17/18 00:05 Albumin/Globulin Ratio 0.9 (1.1-1.8) L 02/17/18 00:05 Lipase 263 U/L (23-300) 02/17/18 00:05 Discharge Exam - Head Exam Head Exam: ATRAUMATIC, NORMAL INSPECTION Discharge Plan - Follow Up Plan Condition: FAIR Disposition: HOME/ ROUTINE Instructions: Dialysis Diet , Gastrointestinal Bleeding (DC) Additional Instructions: PLEASE CONTINUE TAKING MEDICATIONS PRESCRIBED ,SCHEDULED DIALYSIS AND RENAL DIET. PLEASE PARTICIPATE IN PHYSICAL THERAPY SUGGESTED IN TRCU TO AID IN A SPEEDY RECOVERY. Referrals: Surya Fisher [Medical Doctor] - Cecily Rosa MD [Medical Doctor] -
[2018-02-19 10:25] LABS: CALCIUM 7.9 mg/dL (8.4-10.5)
--- NOTE | 2018-02-19 11:14 | CP.PCM.PN ---
<Sudarshan Yo - Last Filed: 02/19/18 19:00> Subjective - Date & Time of Evaluation Date of Evaluation: 02/19/18 Time of Evaluation: 08:35 - Subjective Subjective: PGY6 GI Fellow Progress Note Patient seen and examined bedside this morning. The patient is noted to be eating breakfast without difficulty this morning. He denies any abdominal pain and has not had any further episodes of hematochezia. Denies fever, chills, nausea, vomiting. 12 system ROS performed and negative except where stated Objective - Vital Signs/Intake and Output Vital Signs (last 24 hours): Temp Pulse Resp BP Pulse Ox 98.7 F 97 H 19 94/59 L 94 L 02/19/18 08:26 02/19/18 08:26 02/19/18 08:26 02/19/18 10:07 02/19/18 08:26 Intake and Output: 02/19/18 02/19/18 06:59 18:59 Intake Total 440 Balance 440 - Medications Medications: Current Medications Acetaminophen (Tylenol 325mg Tab) 650 mg PO Q4H PRN PRN Reason: Pain, moderate (4-7) Atorvastatin Calcium (Lipitor) 40 mg PO HS [facility] Last Admin: 02/18/18 21:16 Dose: 40 mg Benzonatate (Tessalon Perles) 100 mg PO TID PRN PRN Reason: Cough Last Admin: 02/19/18 10:07 Dose: 100 mg Carvedilol (Coreg) 12.5 mg PO BID [facility] Last Admin: 02/19/18 10:07 Dose: Not Given Cinacalcet (Sensipar) 30 mg PO HS [facility] Last Admin: 02/18/18 21:16 Dose: 30 mg Metronidazole (Flagyl) 500 mg in 100 mls @ 100 mls/hr IVPB Q8 [facility]; Protocol Last Admin: 02/19/18 05:57 Dose: 100 mls/hr Ceftriaxone Sodium (Rocephin 1 Gram Ivpb) 1 gm in 100 mls @ 200 mls/hr IVPB DAILY [facility]; Protocol Last Admin: 02/19/18 10:00 Dose: 200 mls/hr Pantoprazole Sodium (Protonix Inj) 40 mg IVP DAILY [facility] Last Admin: 02/19/18 10:00 Dose: 40 mg Sevelamer HCl (Renagel) 800 mg PO AC [facility] Last Admin: 02/19/18 08:51 Dose: 800 mg Vitamin B Complex/Vit C/Folic Acid (Nephro-Dionisio) 1 tab PO 0800 [facility] Last Admin: 02/19/18 08:51 Dose: 1 tab - Labs Labs: 02/19/18 05:35 02/19/18 06:00 PT 20.6 SECONDS (9.4-12.5) H 02/17/18 00:05 INR 1.79 02/17/18 00:05 APTT 31.5 Seconds (25.1-36.5) 02/17/18 00:05 - Constitutional Appears: Non-toxic, No Acute Distress - Eye Exam Eye Exam: EOMI, PERRL - ENT Exam ENT Exam: Mucous Membranes Moist - Respiratory Exam Respiratory Exam: Clear to Ausculation Bilateral. absent: Rales, Rhonchi, Wheezes - Cardiovascular Exam Cardiovascular Exam: RRR, +S1, +S2 - GI/Abdominal Exam GI & Abdominal Exam: Soft, Normal Bowel Sounds. absent: Distended, Firm, Guar ding, Rigid, Tenderness, Organomegaly - Extremities Exam Additional comments: 1+ B/L LE edema - Neurological Exam Neurological Exam: Alert, Awake, Oriented x3 - Psychiatric Exam Psychiatric exam: Normal Affect, Normal Mood - Skin Skin Exam: Dry, Warm Assessment and Plan - Assessment and Plan (Free Text) Assessment: Patient is a 77yo male with PMHx significant for ESRD on HD T/R/Sa, ischemic heart disease, PVD, HTN who presented with hematochezia and left sided abdominal pain -Abdominal pain/hematochezia with concern for ischemic colitis -Ascites of unclear etiology Plan: -Symptoms have resolved at this juncture -Would continue a course of antibiotics for upwards of 7 days total -Would likely benefit from diagnostic paracentesis to determine etiology of ascites - no LFT abnormalities noted and imaging unremarkable of liver, though limited in absence of IV contrast; presume cardiac in etiology -Echocardiogram showing EF 20% with multiple valvular lesions, in particular moderate TR - 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 -Continue supportive care -Recommend outpatient follow up and may benefit from elective colonoscopy <Cecily Rosa V - Last Filed: 02/19/18 22:49> Objective - Vital Signs/Intake and Output Vital Signs (last 24 hours): Temp Pulse Resp BP Pulse Ox 99 F 92 H 19 98/62 L 97 02/19/18 18:00 02/19/18 18:00 02/19/18 18:00 02/19/18 18:00 02/19/18 18:00 Intake and Output: 02/19/18 02/20/18 18:59 06:59 Intake Total 1280 Balance 1280 - Medications Medications: Current Medications Acetaminophen (Tylenol 325mg Tab) 650 mg PO Q4H PRN PRN Reason: Pain, moderate (4-7) Last Admin: 02/19/18 22:37 Dose: 650 mg Atorvastatin Calcium (Lipitor) 40 mg PO HS [facility] Last Admin: 02/19/18 22:07 Dose: 40 mg Benzonatate (Tessalon Perles) 100 mg PO TID PRN PRN Reason: Cough Last Admin: 02/19/18 10:07 Dose: 100 mg Carvedilol (Coreg) 12.5 mg PO BID [facility] Last Admin: 02/19/18 17:13 Dose: Not Given Cinacalcet (Sensipar) 30 mg PO HS [facility] Last Admin: 02/19/18 22:05 Dose: 30 mg Guaifenesin/Dextromethorphan (Robitussin Dm) 5 ml PO Q4H PRN PRN Reason: Cough Last Admin: 02/19/18 16:04 Dose: 5 ml Metronidazole (Flagyl) 500 mg in 100 mls @ 100 mls/hr IVPB Q8 [facility]; Protocol Last Admin: 02/19/18 22:05 Dose: 100 mls/hr Ceftriaxone Sodium (Rocephin 1 Gram Ivpb) 1 gm in 100 mls @ 200 mls/hr IVPB DAILY [facility]; Protocol Last Admin: 02/19/18 10:00 Dose: 200 mls/hr Pantoprazole Sodium (Protonix Ec Tab) 40 mg PO ACB [facility] Ramipril (Altace) 2.5 mg PO MWF [facility] Sevelamer HCl (Renagel) 800 mg PO AC [facility] Last Admin: 02/19/18 16:04 Dose: 800 mg Vitamin B Complex/Vit C/Folic Acid (Nephro-Dionisio) 1 tab PO 0800 [facility] Last Admin: 02/19/18 08:51 Dose: 1 tab - Labs Labs: 02/19/18 05:35 02/19/18 06:00 PT 20.6 SECONDS (9.4-12.5) H 02/17/18 00:05 INR 1.79 02/17/18 00:05 APTT 31.5 Seconds (25.1-36.5) 02/17/18 00:05 Attending/Attestation - Attestation I have personally seen and examined this patient.: Yes I have fully participated in the care of the patient.: Yes I have reviewed all pertinent clinical information, including history, physical exam and plan: Yes Notes (Text): This is an addendum to GI progress report dictated by the GI Fellow. The patient was seen and examined earlier. Medical records, lab studies, imagings were reviewed. Last 24 hours events reviewed. Agreed with the above treatment plan as outlined in GI Fellow 's notes with the addition of the following Abdominal pain has significantly improved Followup hb Complete the antibiotic course as per ID Patient has small ascitis, patient's EF around 20 percent the fluid could be secondary to the heart failure 02/19/18 22:45
--- NOTE | 2018-02-19 11:50 | CP.PCM.PN ---
Subjective - Date & Time of Evaluation Date of Evaluation: 02/19/18 Time of Evaluation: 11:48 - Subjective Subjective: Nephrology Consultation Note: Assessment: Stable GI bleed Hypertensive Chronic Kidney Disease (I12.0) End stage renal disease (N18.6) dependence on hemodialysis (Z99.2) (TTS) via AVF Anemia (D64.9), Hyperphosphatemia (E83.39), Secondary Hyperparathyroidism (E21.1), HTN (I12.0), PVD, CAD sys CHF, hx of AICD Plan: continue with HD per TTS. Continue with Nephrovite 1 tab/day. PRBC as needed for anemia. on UMU with dialysis as last Hb 9.9 BP on low side likely related with CHF. on coreg and added low dose acei Glycemic control, Dialysis consistent diet Further work up/management as per primary team Dose meds/antibiotics (if needed) for ESRD status. Avoid fleets enema/magnesium based laxatives. added PPI GI eval noted will check echo as well to assess LV function. consider cardiology follow up if low LVEF new. Thanks for allowing me to participate in care of your patient. Will follow patient with you. Please call if any Qs. had d/w team Dr Kurt Martinez Office: [phone] HPI: Pt is a 77 M with hx of ESRD on hemodialysis (TTS) via AVF, last dialysis sat, chronic anemia, hyperphosphatemia, secondary hyperparathyroidism, PVD, CAD, hypertension presented with complaints of blood on stool and dark stool Renal consult requested for ESRD management. otherwise he feels in usual health. pt on HD x 5 years ROS: Cardiovascular: No chest pain. Pulmonary: No shortness of breath Gastrointestinal: denies abdominal pain No nausea. No vomiting. Genitourinary: No pain while urinating. Denies blood in urine. All other negative except as mentioned in HPI Physical Examination: General Appearance: Comfortable, in no acute respiratory distress, co-operative . Vitals reviewed and noted as below Head; Atraumatic, normocephalic ENT: no ulcers no thrush. Tongue is midline. Oropharynx: no rash or ulcers. EYES: Pupils are equal, round and reactive to light accommodation. Eye muscles and extraocular movement intact. Sclera is anicteric. Neck; supple no lymphadenopathy, no thyromegaly or bruit Lungs: Normal respiratory rate/effort. Breath sounds bilateral equal and clear Heart: Normal rate. s1s2 normal. No rub or gallop. Extremities: 1+ edema. No varicose veins Neurological: Patient is alert, awake and oriented to person, place and time. No focal deficit. Strength bilateral appropriate and equal Skin: Warm and dry. Normal turgor. No rash. Palpitation: Normal elasticity for age Abdomen: Abdomen is soft. Bowel sounds +. There is no abdominal tenderness, no guarding/rigidity or organomegaly Psych: normal insight and normal affect/mood MSK: no joint tenderness or swelling. Digits and nails normal, no deformity : kidney or bladder not palpable Access: AVF Labs/imaging reviewed. Past medical history, past surgical history, family history, social history, allergy reviewed and noted as below Family Hx: no hx of CKD. Non contributory Objective - Vital Signs/Intake and Output Vital Signs (last 24 hours): Temp Pulse Resp BP Pulse Ox 98.7 F 97 H 19 94/59 L 94 L 02/19/18 08:26 02/19/18 08:26 02/19/18 08:26 02/19/18 10:07 02/19/18 08:26 Intake and Output: 02/19/18 02/19/18 06:59 18:59 Intake Total 440 Balance 440 - Medications Medications: Current Medications Acetaminophen (Tylenol 325mg Tab) 650 mg PO Q4H PRN PRN Reason: Pain, moderate (4-7) Atorvastatin Calcium (Lipitor) 40 mg PO [facility] Last Admin: 02/18/18 21:16 Dose: 40 mg Benzonatate (Tessalon Perles) 100 mg PO TID PRN PRN Reason: Cough Last Admin: 02/19/18 10:07 Dose: 100 mg Carvedilol (Coreg) 12.5 mg PO BID [facility] Last Admin: 02/19/18 10:07 Dose: Not Given Cinacalcet (Sensipar) 30 mg PO [facility] Last Admin: 02/18/18 21:16 Dose: 30 mg Metronidazole (Flagyl) 500 mg in 100 mls @ 100 mls/hr IVPB Q8 [facility]; Protocol Last Admin: 02/19/18 05:57 Dose: 100 mls/hr Ceftriaxone Sodium (Rocephin 1 Gram Ivpb) 1 gm in 100 mls @ 200 mls/hr IVPB DAILY [facility]; Protocol Last Admin: 02/19/18 10:00 Dose: 200 mls/hr Pantoprazole Sodium (Protonix Inj) 40 mg IVP DAILY [facility] Last Admin: 02/19/18 10:00 Dose: 40 mg Sevelamer HCl (Renagel) 800 mg PO AC [facility] Last Admin: 02/19/18 08:51 Dose: 800 mg Vitamin B Complex/Vit C/Folic Acid (Nephro-Dionisio) 1 tab PO 0800 [facility] Last Admin: 02/19/18 08:51 Dose: 1 tab - Labs Labs: 02/19/18 05:35 02/19/18 06:00 PT 20.6 SECONDS (9.4-12.5) H 02/17/18 00:05 INR 1.79 02/17/18 00:05 APTT 31.5 Seconds (25.1-36.5) 02/17/18 00:05
--- NOTE | 2018-02-19 14:04 | CP.PCM.PN ---
<Sudarshan Ramsey - Last Filed: 02/19/18 13:51> Subjective - Date & Time of Evaluation Date of Evaluation: 02/19/18 Time of Evaluation: 06:40 - Subjective Subjective: Progress Note for Dr. Sinha Service Patient seen and examined at bedside. No acute complaints overnight. BM with no melena yesterday, no reported addison blood per rectum without BMs. Echo obtained today, preliminary read concerning for low EF, known to have low EF previously during cardiac cath in 2013, but will ask cardio to evaluate again. Patient tolerating soft renal diet well, denies any abdominal pain, nausea, or emesis with intake. Objective - Vital Signs/Intake and Output Vital Signs (last 24 hours): Temp Pulse Resp BP Pulse Ox 98.7 F 97 H 19 94/59 L 94 L 02/19/18 08:26 02/19/18 08:26 02/19/18 08:26 02/19/18 10:07 02/19/18 08:26 Intake and Output: 02/19/18 02/19/18 06:59 18:59 Intake Total 440 Balance 440 - Medications Medications: Current Medications Acetaminophen (Tylenol 325mg Tab) 650 mg PO Q4H PRN PRN Reason: Pain, moderate (4-7) Last Admin: 02/19/18 12:32 Dose: 650 mg Atorvastatin Calcium (Lipitor) 40 mg PO HS [facility] Last Admin: 02/18/18 21:16 Dose: 40 mg Benzonatate (Tessalon Perles) 100 mg PO TID PRN PRN Reason: Cough Last Admin: 02/19/18 10:07 Dose: 100 mg Carvedilol (Coreg) 12.5 mg PO BID [facility] Last Admin: 02/19/18 10:07 Dose: Not Given Cinacalcet (Sensipar) 30 mg PO HS [facility] Last Admin: 02/18/18 21:16 Dose: 30 mg Metronidazole (Flagyl) 500 mg in 100 mls @ 100 mls/hr IVPB Q8 [facility]; Protocol Last Admin: 02/19/18 05:57 Dose: 100 mls/hr Ceftriaxone Sodium (Rocephin 1 Gram Ivpb) 1 gm in 100 mls @ 200 mls/hr IVPB DAILY [facility]; Protocol Last Admin: 02/19/18 10:00 Dose: 200 mls/hr Pantoprazole Sodium (Protonix Ec Tab) 40 mg PO ACB [facility] Ramipril (Altace) 2.5 mg PO MWF [facility] Sevelamer HCl (Renagel) 800 mg PO AC [facility] Last Admin: 02/19/18 12:33 Dose: 800 mg Vitamin B Complex/Vit C/Folic Acid (Nephro-Dionisio) 1 tab PO 0800 [facility] Last Admin: 02/19/18 08:51 Dose: 1 tab - Labs Labs: 02/19/18 05:35 02/19/18 06:00 PT 20.6 SECONDS (9.4-12.5) H 02/17/18 00:05 INR 1.79 02/17/18 00:05 APTT 31.5 Seconds (25.1-36.5) 02/17/18 00:05 - Additional Findings Additional findings: - Constitutional Appears: Non-toxic, No Acute Distress - Head Exam Head Exam: ATRAUMATIC, NORMAL INSPECTION, NORMOCEPHALIC - Eye Exam Eye Exam: EOMI, Normal appearance. absent: Conjunctival injection, Scleral icterus - ENT Exam ENT Exam: Mucous Membranes Moist - Neck Exam Neck Exam: Full ROM - Respiratory Exam Respiratory Exam: Clear to Ausculation Bilateral, NORMAL BREATHING PATTERN. absent: Accessory Muscle Use, Chest Wall Tenderness, Rales, Rhonchi, Wheezes - Cardiovascular Exam Cardiovascular Exam: REGULAR RHYTHM, RRR, +S1, +S2. absent: Bradycardia, Tachycardia, JVD - GI/Abdominal Exam GI & Abdominal Exam: Soft, Normal Bowel Sounds, Tenderness (mild diffuse dis comfort, only worsened with palpation at bilateral lower quadrants). absent: Distended, Firm, Rigid, Diminished Bowel Sounds, Hyperactive Bowel Sounds, Hypoactive Bowel Sounds - Extremities Exam Extremities Exam: Pedal Edema (+1 pitting edema in bilateral edema from feet to mid-shins, +1 from mid-shins to knees). absent: Calf Tenderness, Tenderness - Back Exam Back Exam: absent: CVA tenderness (L), CVA tenderness (R) - Neurological Exam awake and alert, following all commands appropriately, moving extremities spontaneously - Psychiatric Exam Psychiatric exam: Normal Affect, Normal Mood - Skin Skin Exam: Dry, Intact, Normal Color (except for some discoloration at distal bilateral LE), Warm Assessment and Plan - Assessment and Plan (Free Text) Assessment: This is a 77 yo M with PMH of ESRD on HD T//Mon, PVD, anemia of chronic disease, and ischemic heart disease who presented to [facility] with complaint of 3 episodes of dark blood in his stool, which began 2 days ago. He was admitted for suspected GI bleed, pending GI eval and recs. Plan: 1) Dark blood with stooling -hemorrhoids vs ischemic collitis -no pain directly with bleeds and/or stooling, but some generalized discomfort, could be indicative of ischemic collitis -Hgb stable today, continue to monitor -GI consulted, appreciate their recs; continue to advance diet as tolerated, recs diagnostic paracentesis to determine etiology of ascites; IR consulted for diagnostic paracentesis -Protonix IV daily 2) Low EF on Echo -Cardio (Samuel) consulted, appreciate their recs 3) ESRD -Nephro consulted for continuing HD -continue home sevelamer and cinacalcet Dispo: Tolerating diet, no further blood BMs reported, pending Cardio and IR evals/recs Ppx: Protonix covers for GI, SCDs for DVT Reviewed and discussed with attending, Dr. Sinha <Rodrigo Sinha S - Last Filed: 02/19/18 19:37> Objective - Vital Signs/Intake and Output Vital Signs (last 24 hours): Temp Pulse Resp BP Pulse Ox 99 F 92 H 19 98/62 L 97 02/19/18 18:00 02/19/18 18:00 02/19/18 18:00 02/19/18 18:00 02/19/18 18:00 Intake and Output: 02/19/18 02/20/18 18:59 06:59 Intake Total 1280 Balance 1280 - Medications Medications: Current Medications Acetaminophen (Tylenol 325mg Tab) 650 mg PO Q4H PRN PRN Reason: Pain, moderate (4-7) Last Admin: 02/19/18 12:32 Dose: 650 mg Atorvastatin Calcium (Lipitor) 40 mg PO HS [facility] Last Admin: 02/18/18 21:16 Dose: 40 mg Benzonatate (Tessalon Perles) 100 mg PO TID PRN PRN Reason: Cough Last Admin: 02/19/18 10:07 Dose: 100 mg Carvedilol (Coreg) 12.5 mg PO BID [facility] Last Admin: 02/19/18 17:13 Dose: Not Given Cinacalcet (Sensipar) 30 mg PO HS [facility] Last Admin: 02/18/18 21:16 Dose: 30 mg Guaifenesin/Dextromethorphan (Robitussin Dm) 5 ml PO Q4H PRN PRN Reason: Cough Last Admin: 02/19/18 16:04 Dose: 5 ml Metronidazole (Flagyl) 500 mg in 100 mls @ 100 mls/hr IVPB Q8 [facility]; Protocol Last Admin: 02/19/18 13:51 Dose: 100 mls/hr Ceftriaxone Sodium (Rocephin 1 Gram Ivpb) 1 gm in 100 mls @ 200 mls/hr IVPB DAILY [facility]; Protocol Last Admin: 02/19/18 10:00 Dose: 200 mls/hr Pantoprazole Sodium (Protonix Ec Tab) 40 mg PO ACB [facility] Ramipril (Altace) 2.5 mg PO MWF [facility] Sevelamer HCl (Renagel) 800 mg PO AC [facility] Last Admin: 02/19/18 16:04 Dose: 800 mg Vitamin B Complex/Vit C/Folic Acid (Nephro-Dionisio) 1 tab PO 0800 [facility] Last Admin: 02/19/18 08:51 Dose: 1 tab - Labs Labs: 02/19/18 05:35 02/19/18 06:00 PT 20.6 SECONDS (9.4-12.5) H 02/17/18 00:05 INR 1.79 02/17/18 00:05 APTT 31.5 Seconds (25.1-36.5) 02/17/18 00:05 Assessment and Plan - Assessment and Plan (Free Text) Plan: Pt seen and examined. I reviewed the note of the medical device assembler and I agree with the note including the assessment and plan. I reviewed the medications and last labs. Pt with GI bleed that has improved. He has a lowe EF and is known to cardiology. He will need paracentesis for his ascites. He is not walking well. He was advised to return to [facility] at [facility].
[2018-02-19] MEDS: guaiFENesin DM 100 mg-10 mg/5 ml UD PO PRN (16:04)
--- NOTE | 2018-02-19 16:24 | CARD ---
APPROVED REPORT Date of service: 02/19/2018 EXAM: Two-dimensional and M-mode echocardiogram with Doppler and color Doppler. INDICATION Congestive Heart Failure 2D DIMENSIONS Left Atrium (2D)4.5 (1.6-4.0cm)IVSd1.1 (0.7-1.1cm) LVDd5.5 (3.9-5.9cm)PWd0.9 (0.7-1.1cm) LVDs5.0 (2.5-4.0cm)FS (%) 9.2 % LVEF (%)20.1 (>50%) M-Mode DIMENSIONS Aortic Root3.30 (2.2-3.7cm)Aortic Cusp Exc.0.90 (1.5-2.0cm) Aortic Valve AoV Peak Bgatfeng820.0cm/Adriano Peak GR.13mmHg Mitral Valve E/A ratio0.0 TDI E/Lateral E'0.0E/Medial E'0.0 Tricuspid Valve TR Peak [id number] [id number] Peak Gr.33mmHg [id number] LEFT VENTRICLE The Left Ventricle is borderline dilated. There is normal left ventricular wall thickness. The ejection fraction is severely impaired.EF-20% There is severe global hypokinesis of the left ventricle. Transmitral Doppler flow pattern is Grade II-pseudonormal filling dynamics. No left ventricle thrombus noted on this study. There is no ventricular septal defect visualized. There is no left ventricular aneurysm. There is no mass noted in the left ventricle. RIGHT VENTRICLE The right ventricle is moderately dilated. There is normal right ventricular wall thickness. Systolic function is moderately reduced. ATRIA The left atrium is mildly dilated. The right atrium is mildly dilated. The interatrial septum is intact with no evidence for an atrial septal defect. AORTIC VALVE The aortic valve is calcified and displays decreased opening. There is moderate aortic regurgitation. There is mild to moderate valvular aortic stenosis. There is no aortic valvular vegetation. MITRAL VALVE The mitral valve is thickened but opens well. Mitral regurgitation is moderate. There is no mitral valve stenosis. There is no evidence of mitral valve prolapse. TRICUSPID VALVE The tricuspid valve leaflets are thickened , but open well. There is moderate to severe tricuspid regurgitation.( multiple Jets). [id number] may be underestimating b/c of Configuration of TR Jets There is no tricuspid valve stenosis. There is no tricuspid valve prolapse or vegetation. PULMONIC VALVE The pulmonic valve is mildly thickened. There is moderate pulmonic valvular regurgitation. There is no pulmonic valvular stenosis. GREAT VESSELS The aortic root is normal in size. The ascending aorta is normal in size. The pulmonary artery is normal. The IVC is dilated. PERICARDIAL EFFUSION There is no pleural effusion. There is no pericardial effusion. <Conclusion> Four Chamber Dilatation Severely decreased LV Fx. EF-20%, C/w CMP There is moderate aortic regurgitation. There is mild to moderate valvular aortic stenosis. Mitral regurgitation is moderate. There is moderate to severe tricuspid regurgitation.( multiple Jets). RVSP-43 may be underestimating b/c of Configuration of TR Jets There is moderate pulmonic valvular regurgitation. The IVC is dilated. There is no pericardial effusion. No Vegetation noted.
--- NOTE | 2018-02-19 17:14 | CP.PCM.PCO ---
Physician Communication Note - Physician Communication Note Physician Communication Note: Pt awaiting GI clearance as noted, IR to eval ascites,cardiol eval pending
--- NOTE | 2018-02-19 19:04 | PN ---
DATE: 02/19/2018 TIME: 6:25 p.m. I reviewed Mr. Caro's CT scan. He has a very small amount of ascites. It would be difficult to perform a paracentesis. If diagnostic paracentesis is necessary due to significant clinical concern for spontaneous bacterial peritonitis, it can be attempted under CT guidance. Given the patient's improvement, no paracentesis will be performed at this time. Contact me if his situation changes. Kelvin Cevallos MD MTDD
[2018-02-20] MEDS: metroNIDAZOLE IV 500 mg/100 ml 500 MG/100 ML BAG IVPB SCH ×2 (05:28→14:11)
[2018-02-20] MEDS: guaiFENesin DM 100 mg-10 mg/5 ml UD PO PRN (06:14)
--- NOTE | 2018-02-20 06:28 | CP.PCM.PN ---
Objective - Vital Signs/Intake and Output Vital Signs (last 24 hours): Temp Pulse Resp BP Pulse Ox 99.2 F 99 H 20 109/65 95 02/20/18 00:20 02/20/18 00:20 02/20/18 00:20 02/20/18 00:20 02/20/18 00:20 Intake and Output: 02/19/18 02/20/18 18:59 06:59 Intake Total 1280 500 Balance 1280 500 - Medications Medications: Current Medications Acetaminophen (Tylenol 325mg Tab) 650 mg PO Q4H PRN PRN Reason: Pain, moderate (4-7) Last Admin: 02/19/18 22:37 Dose: 650 mg Atorvastatin Calcium (Lipitor) 40 mg PO HS [facility] Last Admin: 02/19/18 22:07 Dose: 40 mg Benzonatate (Tessalon Perles) 100 mg PO TID PRN PRN Reason: Cough Last Admin: 02/19/18 10:07 Dose: 100 mg Carvedilol (Coreg) 12.5 mg PO BID [facility] Last Admin: 02/19/18 17:13 Dose: Not Given Cinacalcet (Sensipar) 30 mg PO HS [facility] Last Admin: 02/19/18 22:05 Dose: 30 mg Guaifenesin/Dextromethorphan (Robitussin Dm) 5 ml PO Q4H PRN PRN Reason: Cough Last Admin: 02/20/18 06:14 Dose: 5 ml Metronidazole (Flagyl) 500 mg in 100 mls @ 100 mls/hr IVPB Q8 [facility]; Protocol Last Admin: 02/20/18 05:28 Dose: 100 mls/hr Ceftriaxone Sodium (Rocephin 1 Gram Ivpb) 1 gm in 100 mls @ 200 mls/hr IVPB DAILY [facility]; Protocol Last Admin: 02/19/18 10:00 Dose: 200 mls/hr Pantoprazole Sodium (Protonix Ec Tab) 40 mg PO ACB [facility] Ramipril (Altace) 2.5 mg PO MWF [facility] Sevelamer HCl (Renagel) 800 mg PO AC [facility] Last Admin: 02/19/18 16:04 Dose: 800 mg Vitamin B Complex/Vit C/Folic Acid (Nephro-Dionisio) 1 tab PO 0800 [facility] Last Admin: 02/19/18 08:51 Dose: 1 tab - Labs Labs: 02/19/18 05:35 02/19/18 06:00 PT 20.6 SECONDS (9.4-12.5) H 02/17/18 00:05 INR 1.79 02/17/18 00:05 APTT 31.5 Seconds (25.1-36.5) 02/17/18 00:05
[2018-02-20] MEDS ORDERED: Pantoprazole 40 mg EC Tab PO SCH (07:30)
[2018-02-20 08:01] LABS: BASO % 0.4 % (0.0-3.0); EOS % 4.5 % (1.5-5.0); GRAN # 4.61 (1.4-6.5); GRAN % 65.4 % (50.0-68.0); HEMOGLOBIN 10.5 g/dL (14.0-18.0); LYMPH # 0.8 (1.2-3.4); MEAN CELL VOLUME 88.9 fl (80.0-105.0); MEAN CORPUSCULAR HEMOGLOBIN 31.4 pg (25.0-35.0); MEAN CORPUSCULAR HGB CONC 35.4 g/dl (31.0-37.0); MEAN PLATELET VOLUME 10.4 fl (7.0-11.0); MONO % 18.7 % (1.0-6.0); RBC 3.34 10^6/uL (3.5-6.1); RED CELL DISTRIBUTION WIDTH 16.7 % (11.5-14.5); WHITE BLOOD COUNT 7.1 10^3/uL (4.5-11.0)
[2018-02-20 08:02] LABS: BASO # 0.03 K/mm3 (0.0-2.0); EOS # 0.3 (0.0-0.7); MONO # 1.3 (0.1-0.6)
[2018-02-20 08:13] LABS: ALBUMIN 3.6 g/dL (3.0-4.8); CALCIUM 8.1 mg/dL (8.4-10.5)
[2018-02-20] MEDS: cefTRIAXone 1 gm 1 GM/100 ML BAG IVPB SCH (10:25)
--- NOTE | 2018-02-20 10:34 | CON ---
DATE: 02/20/2018 INDICATIONS: LV dysfunction on echocardiogram, admission for GI bleed. HISTORY OF PRESENT ILLNESS: This is a 77-year-old jail resident, known to our practice, admitted on 02/16/2018 with episodes of melena and rectal bleeding. He has undergone evaluation. There has been no recent bleeding. His H and H are stable. He is undergoing a GI evaluation. Colonoscopy is planned. An echocardiogram was done showing severe four chamber enlargement and severe LV dysfunction. There is no chest pain or shortness of breath. No orthopnea, PND, syncope, presyncope, lightheadedness, dizziness or vertigo. No palpitations. He does have edema. There is ascites noted on imaging studies. No fever, chills, cough, sputum production, hemoptysis, abdominal pain, nausea, vomiting, diarrhea, or constipation. PAST MEDICAL HISTORY: His past medical history is notable for chronic kidney disease and hemodialysis three times per week. He has known coronary artery disease. He underwent a cardiac catheterization in August 2013, LV dysfunction was noted as well as coronary artery disease. The right coronary artery was stented at that time. He has a history of hypertension, chronic anemia, but no myocardial infarction, congestive heart failure, diabetes, stroke, TIA or gout. MEDICATIONS: Medications at this time include Altace, Benadryl, Coreg, Lipitor, vitamin B, Protonix, Renagel, Rocephin, Sensipar, Tessalon Perles for also as needed, Tylenol as needed. ALLERGIES: THERE ARE NO MEDICATION ALLERGIES REPORTED. SOCIAL HISTORY: He is a jail resident. He does not drink alcohol. He does not smoke cigarettes. REVIEW OF SYSTEMS: A 10-point review of systems otherwise unremarkable except as noted above. FAMILY HISTORY: Noncontributory. PHYSICAL EXAMINATION: GENERAL: He is an elderly male, sitting in chair by his bedside on 3R, in no acute distress. VITAL SIGNS: Notable for pulse of 99, afebrile. Blood pressure 109/65, respirations 19 to 20, O2 sat 95% to 97% on room air. HEENT: Exam reveals no neck vein distention, thyromegaly, or carotid bruit. Mucous membranes moist. Conjunctivae pink. NECK: Supple. LUNGS: Lung colbert, scattered rhonchi. CARDIOVASCULAR: Examination of the heart revealed normal first and second heart sounds. There is a systolic murmur along the left sternal border. PMI is displaced laterally. ABDOMEN: Obese. Bowel sounds present. No mass, organomegaly, tenderness, rebound, guarding. No CVA tenderness. No palpable abdominal aortic aneurysm. EXTREMITIES: Extremity exam revealed moderate lower extremity edema. NEUROLOGICAL: Awake, alert and oriented. PSYCHIATRIC: Normal as to mood and affect. SKIN: Warm and dry. No rash or cellulitis. LABORATORY AND IMAGING STUDIES: An abdomen and pelvis CT is noted, see multiple findings including abdominal ascites, cholelithiasis, cardiomegaly, anasarca, etc. EKG demonstrates regular sinus rhythm with PVCs, ST-wave changes consistent with ischemia. No change from a prior EKG. Echocardiogram is noted. There is severe LV dysfunction, four-chamber enlargement, moderate aortic regurgitation and aortic stenosis, moderate mitral regurgitation, moderate to severe tricuspid regurgitation, moderate pulmonary hypertension, moderate pulmonary regurgitation. Hemoglobin is stable at 10.3, hematocrit stable at 30.2. White count normal, platelet count normal. PT/INR elevated at 20.6 and 1.79 respectively. PTT 31.5. Electrolytes unremarkable. BUN 39, creatinine 5.5. Calcium levels are low. Magnesium is normal. LFTs unremarkable. Lipase is normal. IMPRESSION: William Caro is a 77-year-old man admitted with lower gastrointestinal bleeding, undergoing GI evaluation, also has ascites and prolonged PT/INR, possibly related to underlying liver disease, possibly related to congestive heart failure with valvular heart disease and cardiomyopathy and a history of coronary artery disease with right coronary artery stent in 2013. PLAN: At this time, I would like to review his outpatient records. He is getting dialysis, having a GI evaluation. If colonoscopy is undertaken, it should be considered at least a moderate increase in cardiac risk. He is on ramipril, Coreg, Lipitor, and aspirin is being held because of GI bleeding and coagulopathy is noted. Vitamin K should be considered to correct this. I's and O's should be monitored. Check stool for occult blood. Monitor H and H. I will follow along with you. I will make additional recommendations based on his clinical course. Luis Fernandez MD [facility] # [id number]
--- NOTE | 2018-02-20 10:50 | CP.PCM.PN ---
Subjective - Date & Time of Evaluation Date of Evaluation: 02/20/18 Time of Evaluation: 07:45 - Subjective Subjective: PGY6 GI Fellow Progress Note Patient seen and examined bedside this morning and again during HD with Dr Rosa. Patient states no abdominal pain overnight or this morning. Tolerated breakfast without issue. Passing bowel movements regularly. No bloody stool noted. 12 system ROS performed and negative except where stated Objective - Vital Signs/Intake and Output Vital Signs (last 24 hours): Temp Pulse Resp BP Pulse Ox 97.9 F 94 H 20 108/63 96 02/20/18 09:11 02/20/18 09:11 02/20/18 09:11 02/20/18 09:11 02/20/18 09:11 Intake and Output: 02/20/18 02/20/18 06:59 18:59 Intake Total 500 Balance 500 - Medications Medications: Current Medications Acetaminophen (Tylenol 325mg Tab) 650 mg PO Q4H PRN PRN Reason: Pain, moderate (4-7) Last Admin: 02/19/18 22:37 Dose: 650 mg Atorvastatin Calcium (Lipitor) 40 mg PO HS [facility] Last Admin: 02/19/18 22:07 Dose: 40 mg Benzonatate (Tessalon Perles) 100 mg PO TID PRN PRN Reason: Cough Last Admin: 02/19/18 10:07 Dose: 100 mg Carvedilol (Coreg) 12.5 mg PO BID [facility] Last Admin: 02/20/18 10:23 Dose: Not Given Cinacalcet (Sensipar) 30 mg PO [facility] Last Admin: 02/19/18 22:05 Dose: 30 mg Guaifenesin/Dextromethorphan (Robitussin Dm) 5 ml PO Q4H PRN PRN Reason: Cough Last Admin: 02/20/18 06:14 Dose: 5 ml Metronidazole (Flagyl) 500 mg in 100 mls @ 100 mls/hr IVPB Q8 [facility]; Protocol Last Admin: 02/20/18 05:28 Dose: 100 mls/hr Ceftriaxone Sodium (Rocephin 1 Gram Ivpb) 1 gm in 100 mls @ 200 mls/hr IVPB DAILY [facility]; Protocol Last Admin: 02/20/18 10:25 Dose: Not Given Pantoprazole Sodium (Protonix Ec Tab) 40 mg PO ACB [facility] Ramipril (Altace) 2.5 mg PO MWF [facility] Sevelamer HCl (Renagel) 800 mg PO AC [facility] Last Admin: 02/20/18 10:24 Dose: Not Given Vitamin B Complex/Vit C/Folic Acid (Nephro-Dionisio) 1 tab PO 0800 [facility] Last Admin: 02/19/18 08:51 Dose: 1 tab - Labs Labs: 02/20/18 07:45 02/20/18 07:45 PT 20.6 SECONDS (9.4-12.5) H 02/17/18 00:05 INR 1.79 02/17/18 00:05 APTT 31.5 Seconds (25.1-36.5) 02/17/18 00:05 - Constitutional Appears: Non-toxic, No Acute Distress - Eye Exam Eye Exam: EOMI, PERRL - ENT Exam ENT Exam: Mucous Membranes Moist - Respiratory Exam Respiratory Exam: Clear to Ausculation Bilateral. absent: Rales, Rhonchi, Wheezes - Cardiovascular Exam Cardiovascular Exam: RRR, +S1, +S2 - GI/Abdominal Exam GI & Abdominal Exam: Soft, Normal Bowel Sounds. absent: Distended, Firm, Guarding, Rigid, Tenderness, Organomegaly - Extremities Exam Extremities Exam: Pedal Edema Additional comments: LE edema noted - Neurological Exam Neurological Exam: Alert, Awake, Oriented x3 - Psychiatric Exam Psychiatric exam: Normal Affect, Normal Mood - Skin Skin Exam: Dry, Warm Assessment and Plan - Assessment and Plan (Free Text) Assessment: Patient is a 77yo male with PMHx significant for ESRD on HD T/R/Sa, ischemic heart disease, PVD, HTN who presented with hematochezia and left sided abdominal pain -Abdominal pain/hematochezia with concern for ischemic colitis - resolved -Ascites, suspect cardiac in etiology Plan: -Symptoms have resolved at this juncture -Would continue a course of antibiotics for upwards of 7 days total, can be switched to PO from GI standpoint -Suspect ascites is cardiac in nature given low EF and multiple valvular lesions -Supportive care, outpatient follow up -Elective colonoscopy once acute issues resolve -OK for D/C from GI standpoint
--- NOTE | 2018-02-20 12:41 | CP.PCM.PN ---
Subjective - Date & Time of Evaluation Date of Evaluation: 02/20/18 Time of Evaluation: 12:40 - Subjective Subjective: Nephrology Consultation Note: Assessment: Stable GI bleed Hypertensive Chronic Kidney Disease (I12.0) End stage renal disease (N18.6) dependence on hemodialysis (Z99.2) (TTS) via AVF Anemia (D64.9), Hyperphosphatemia (E83.39), Secondary Hyperparathyroidism (E21.1), HTN (I12.0), PVD, CAD sys CHF, hx of AICD Plan: continue with HD per TTS. Continue with Nephrovite 1 tab/day. PRBC as needed for anemia. on UMU with dialysis as last Hb 10.5 BP on low side likely related with CHF. on coreg and added low dose acei Glycemic control, Dialysis consistent diet Further work up/management as per primary team Dose meds/antibiotics (if needed) for ESRD status. Avoid fleets enema/magnesium based laxatives. added PPI GI eval noted appreciated cardiology follow up Thanks for allowing me to participate in care of your patient. Will follow patient with you. Please call if any Qs. had d/w team Dr Kurt Martinez Office: [phone] HPI: Pt is a 77 M with hx of ESRD on hemodialysis (TTS) via AVF, last dialysis sat, chronic anemia, hyperphosphatemia, secondary hyperparathyroidism, PVD, CAD, hypertension presented with complaints of blood on stool and dark stool Renal consult requested for ESRD management. otherwise he feels in usual health. pt on HD x 5 years ROS: Cardiovascular: No chest pain. Pulmonary: No shortness of breath Gastrointestinal: denies abdominal pain No nausea. No vomiting. Genitourinary: No pain while urinating. Denies blood in urine. All other negative except as mentioned in HPI Physical Examination: seen during HD General Appearance: Comfortable, in no acute respiratory distress, co-operative . Vitals reviewed and noted as below Head; Atraumatic, normocephalic ENT: no ulcers no thrush. Tongue is midline. Oropharynx: no rash or ulcers. EYES: Pupils are equal, round and reactive to light accommodation. Eye muscles and extraocular movement intact. Sclera is anicteric. Neck; supple no lymphadenopathy, no thyromegaly or bruit Lungs: Normal respiratory rate/effort. Breath sounds bilateral equal and clear Heart: Normal rate. s1s2 normal. No rub or gallop. Extremities: 1+ edema. No varicose veins Neurological: Patient is alert, awake and oriented to person, place and time. No focal deficit. Strength bilateral appropriate and equal Skin: Warm and dry. Normal turgor. No rash. Palpitation: Normal elasticity for age Abdomen: Abdomen is soft. Bowel sounds +. There is no abdominal tenderness, no guarding/rigidity or organomegaly Psych: normal insight and normal affect/mood MSK: no joint tenderness or swelling. Digits and nails normal, no deformity : kidney or bladder not palpable Access: AVF Labs/imaging reviewed. Past medical history, past surgical history, family history, social history, allergy reviewed and noted as below Family Hx: no hx of CKD. Non contributory Objective - Vital Signs/Intake and Output Vital Signs (last 24 hours): Temp Pulse Resp BP Pulse Ox 97.9 F 94 H 20 108/63 96 02/20/18 09:11 02/20/18 09:11 02/20/18 09:11 02/20/18 09:11 02/20/18 09:11 Intake and Output: 02/20/18 02/20/18 06:59 18:59 Intake Total 500 Balance 500 - Medications Medications: Current Medications Acetaminophen (Tylenol 325mg Tab) 650 mg PO Q4H PRN PRN Reason: Pain, moderate (4-7) Last Admin: 02/19/18 22:37 Dose: 650 mg Atorvastatin Calcium (Lipitor) 40 mg PO [facility] Last Admin: 02/19/18 22:07 Dose: 40 mg Benzonatate (Tessalon Perles) 100 mg PO TID PRN PRN Reason: Cough Last Admin: 02/19/18 10:07 Dose: 100 mg Carvedilol (Coreg) 12.5 mg PO BID [facility] Last Admin: 02/20/18 10:23 Dose: Not Given Cinacalcet (Sensipar) 30 mg PO [facility] Last Admin: 02/19/18 22:05 Dose: 30 mg Guaifenesin/Dextromethorphan (Robitussin Dm) 5 ml PO Q4H PRN PRN Reason: Cough Last Admin: 02/20/18 06:14 Dose: 5 ml Metronidazole (Flagyl) 500 mg in 100 mls @ 100 mls/hr IVPB Q8 JUDY; Protocol Last Admin: 02/20/18 05:28 Dose: 100 mls/hr Ceftriaxone Sodium (Rocephin 1 Gram Ivpb) 1 gm in 100 mls @ 200 mls/hr IVPB DAILY JUDY; Protocol Last Admin: 02/20/18 10:25 Dose: Not Given Pantoprazole Sodium (Protonix Ec Tab) 40 mg PO ACB JUDY Ramipril (Altace) 2.5 mg PO MWF JUDY Sevelamer HCl (Renagel) 800 mg PO AC JUDY Last Admin: 02/20/18 12:29 Dose: Not Given Vitamin B Complex/Vit C/Folic Acid (Nephro-Dionisio) 1 tab PO 0800 JUDY Last Admin: 02/19/18 08:51 Dose: 1 tab - Labs Labs: 02/20/18 07:45 02/20/18 07:45 PT 20.6 SECONDS (9.4-12.5) H 02/17/18 00:05 INR 1.79 02/17/18 00:05 APTT 31.5 Seconds (25.1-36.5) 02/17/18 00:05
[2018-02-20] MEDS: Multivitamin Vitamin B Complex (Nephro-Vite) Tab PO SCH (14:11)
--- NOTE | 2018-02-20 14:54 | CP.PCM.DIS ---
Provider - Provider Date of Admission: 02/16/18 23:56 Attending physician: Rodrigo Sinha MD Primary care physician: Dr. Wing Consults: 02/16/18 23:56 Gastroenterology Consult Routine Comment: Consulting Provider: Cecily Rosa V Consulting Physician: Cecily Rosa V Reason for Consult: Bright red blood per rectum 02/17/18 04:44 Social Work Referral Routine Comment: from [facility] Physician Instructions: Reason For Exam: discharge planning 02/17/18 08:48 Consult [Physician Consult] Routine Comment: Consulting Provider: Jeffry Hinton Consulting Physician: Jeffry Hinton Reason for Consult: dialysis 02/19/18 13:14 Cardiology Consult Routine Comment: Consulting Provider: Guillermo Baker Consulting Physician: Guillermo Baker Reason for Consult: low EF on Echo, abd ascites of unclear etiology Physician Consult Routine Comment: Consulting Provider: Kelvin Cevallos Consulting Physician: Kelvin Cevallos Reason for Consult: diagnostic paracentesis Time Spent in preparation of Discharge (in minutes): 45 Hospital Course - Lab Results Lab Results: Most Recent Lab Values WBC 7.1 10^3/uL (4.5-11.0) 02/20/18 07:45 RBC 3.34 10^6/uL (3.5-6.1) L 02/20/18 07:45 Hgb 10.5 g/dL (14.0-18.0) L 02/20/18 07:45 Hct 29.7 % (42.0-52.0) L 02/20/18 07:45 MCV 88.9 fl (80.0-105.0) 02/20/18 07:45 MCH 31.4 pg (25.0-35.0) 02/20/18 07:45 MCHC 35.4 g/dl (31.0-37.0) 02/20/18 07:45 RDW 16.7 % (11.5-14.5) H 02/20/18 07:45 Plt Count 215 10^3/uL (120.0-450.0) 02/20/18 07:45 MPV 10.4 fl (7.0-11.0) 02/20/18 07:45 Gran % 65.4 % (50.0-68.0) 02/20/18 07:45 Lymph % (Auto) 11.0 % (22.0-35.0) L 02/20/18 07:45 Miller % (Auto) 18.7 % (1.0-6.0) H 02/20/18 07:45 Eos % (Auto) 4.5 % (1.5-5.0) 02/20/18 07:45 Baso % (Auto) 0.4 % (0.0-3.0) 02/20/18 07:45 Gran # 4.61 (1.4-6.5) 02/20/18 07:45 Lymph # (Auto) 0.8 (1.2-3.4) L 02/20/18 07:45 Miller # (Auto) 1.3 (0.1-0.6) H 02/20/18 07:45 Eos # (Auto) 0.3 (0.0-0.7) 02/20/18 07:45 Baso # (Auto) 0.03 K/mm3 (0.0-2.0) 02/20/18 07:45 PT 20.6 SECONDS (9.4-12.5) H 02/17/18 00:05 INR 1.79 02/17/18 00:05 APTT 31.5 Seconds (25.1-36.5) 02/17/18 00:05 Sodium 132 mmol/L (132-148) 02/20/18 07:45 Potassium 4.4 mmol/L (3.6-5.0) 02/20/18 07:45 Chloride 94 mmol/L (98-107) L 02/20/18 07:45 Carbon Dioxide 25 mmol/L (21-33) 02/20/18 07:45 Anion Gap 17 (10-20) 02/20/18 07:45 BUN 60 mg/dL (7-21) H 02/20/18 07:45 Creatinine 7.6 mg/dl (0.8-1.5) H* D 02/20/18 07:45 Est GFR ( Amer) 8 02/20/18 07:45 Est GFR (Non-Af Amer) 7 02/20/18 07:45 Random Glucose 82 mg/dL (70-110) 02/20/18 07:45 Calcium 8.1 mg/dL (8.4-10.5) L 02/20/18 07:45 Phosphorus 3.0 mg/dL (2.5-4.5) 02/20/18 07:45 Magnesium 2.0 mg/dL (1.7-2.2) 02/20/18 07:45 Total Bilirubin 0.8 mg/dL (0.2-1.3) 02/20/18 07:45 AST 22 U/L (17-59) 02/20/18 07:45 ALT 27 U/L (7-56) 02/20/18 07:45 Alkaline Phosphatase 144 U/L (38-126) H 02/20/18 07:45 Total Protein 7.0 g/dL (5.8-8.3) 02/20/18 07:45 Albumin 3.6 g/dL (3.0-4.8) 02/20/18 07:45 Globulin 3.5 gm/dL 02/20/18 07:45 Albumin/Globulin Ratio 1.0 (1.1-1.8) L 02/20/18 07:45 Lipase 263 U/L (23-300) 02/17/18 00:05 - Hospital Course Hospital Course: 77yo male PMHx CHF, ESRD on HD //, PVD, anemia of chronic disease, and ischemic heart disease presented to [facility] c/o 3 episodes dark blood in his stool for 2 days. Patient reported generalized mild cramping abdominal pain most prominent at b/l lower quadrants. He denied any recent trauma, changes in diet, sick contacts, or pain with defecation. Also denied diarrhea, constipation, straining to move bowels, passing clots with stool, sensation of obstruction when trying to move bowels, nausea, emesis, fevers, chills, dysuria, or hematuria. Denies similar occurrence in the past. Last colonoscopy 5 years prior, unremarkable as per patient. Patient was admitted to [facility] and GI Dr. Rosa and Nephro Dr. Martinez were consulted. CTAP showed cholelithiasis with diffuse thickening of the gallbladder; Mild ascites; Uncomplicated diverticulosis with moderate amount of fecal residue in the large bowel. Gastroparesis." Abdominal pain/hematochezia was concerning for ischemic colitis and patient was kept NPO and started on Rocephin and flagyl. As patient's pain improved, his diet was advanced as tolerated. Patient's HD schedule was maintained. Regarding ascites, IR was consulted for diagnostic paracentesis, however, there was not enough fluid to tap. 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 During hospital course patient clinically improved and symptoms on admission had resolved. Patient was a known patient to Dr. Palmer who would follow him upon discharge. As per GI patient was switched to PO antibiotics and continued supportive care. Gi recommended outpatient follow up for colonoscopy when acute issues resolved. Patient was seen by PT who recommended [facility] for further conditioning. On day of discharge patient was deemed medically optimized for discharge to [facility]. please note this is a discharge summary. For full hospital course please refer to medical records. Discharge Exam - Head Exam Head Exam: ATRAUMATIC, NORMAL INSPECTION - Eye Exam Eye Exam: EOMI, Normal appearance, PERRL. absent: Conjunctival injection, Scleral icterus - ENT Exam ENT Exam: Mucous Membranes Moist - Neck Exam Neck exam: Full Rom - Respiratory Exam Respiratory Exam: Clear to PA & Lateral, NORMAL BREATHING PATTERN. absent: Accessory Muscle Use, Rales, Rhonchi, Wheezes - Cardiovascular Exam Cardiovascular Exam: +S1, +S2 - GI/Abdominal Exam GI & Abdominal Exam: Normal Bowel Sounds, Soft. absent: Firm, Tenderness - Rectal Exam Rectal Exam: Deferred - Extremities Exam Extremities exam: pedal edema (nonpitting b/l) - Back Exam Back exam: NORMAL INSPECTION. absent: rash noted - Neurological Exam Neurological exam: Alert, Oriented x3 - Psychiatric Exam Psychiatric exam: Normal Affect, Normal Mood - Skin Skin Exam: Dry, Intact Discharge Plan - Discharge Medications Prescriptions: Amoxicillin/Clavulanate [Augmentin 875 MG-125 MG] 1 tab PO DAILY 7 Days tab Aspirin [Adult Low Dose Aspirin EC] 81 mg PO DAILY 30 Days tablet. RX: Calcitriol 0.25 mcg PO DAILY 30 Days #30 capsule metroNIDAZOLE [Flagyl] 500 mg PO Q8H 7 Days tab - Follow Up Plan Condition: FAIR Disposition: REHAB FACILITY/REHAB UNIT Instructions: Dialysis Diet , Gastrointestinal Bleeding (DC) Additional Instructions: PLEASE CONTINUE TAKING MEDICATIONS PRESCRIBED ,SCHEDULED DIALYSIS AND RENAL DIET. PLEASE PARTICIPATE IN PHYSICAL THERAPY AT [facility] TO AID IN A SPEEDY RECOVERY. Referrals: Surya Fisher [Medical Doctor] - Guillermo Baker MD [Staff Provider] - Cecily Rosa MD [Medical Doctor] -
[2018-02-20 18:07] VITALS: BP 115/66; PULSE 103; RESP 19; TEMP 99.6; O2SAT 97
== END 2018-02-20 20:00 | DRG 377 ==
LOC: ED 22:26 → ERH 23:56 → 3RSO 02-17 02:48
PROVIDERS: ADMIT Internal Medicine Nephrology; ATTEND Internal Medicine Nephrology
PROC: 5A1D70Z Performance of Urinary Filtration, Intermittent, Less than 6 Hours Per Day (ICD-10-PCS; principal; 2018-02-17)
PROC: 5A1D70Z Performance of Urinary Filtration, Intermittent, Less than 6 Hours Per Day (ICD-10-PCS; 2018-02-20)
DX: K92.1 Melena (principal); N18.6 End stage renal disease; K55.9 Vascular disorder of intestine, unspecified; R18.8 Other ascites; N25.81 Secondary hyperparathyroidism of renal origin; I13.2 Hypertensive heart and chronic kidney disease with heart failure and with stage 5 chronic kidney disease, or end stage renal disease; I50.9 Heart failure, unspecified; E11.22 Type 2 diabetes mellitus with diabetic chronic kidney disease; E11.51 Type 2 diabetes mellitus with diabetic peripheral angiopathy without gangrene; E11.43 Type 2 diabetes mellitus with diabetic autonomic (poly)neuropathy; K31.84 Gastroparesis; D63.8 Anemia in other chronic diseases classified elsewhere; K80.20 Calculus of gallbladder without cholecystitis without obstruction; K57.90 Diverticulosis of intestine, part unspecified, without perforation or abscess without bleeding; E83.39 Other disorders of phosphorus metabolism; I25.10 Atherosclerotic heart disease of native coronary artery without angina pectoris; K76.1 Chronic passive congestion of liver; K21.9 Gastro-esophageal reflux disease without esophagitis; Z95.810 Presence of automatic (implantable) cardiac defibrillator; Z99.2 Dependence on renal dialysis; Z95.5 Presence of coronary angioplasty implant and graft; Z79.84 Long term (current) use of oral hypoglycemic drugs

== ENCOUNTER 2018-04-25 11:17 | Day surgery (SDC) | payer MEDICARE, BC ==
[2018-04-25 12:02] LABS: BASO # 0.03 K/mm3 (0.0-2.0); BASO % 0.5 % (0.0-3.0); EOS # 0.2 (0.0-0.7); EOS % 3.8 % (1.5-5.0); HEMOGLOBIN 9.4 g/dL (14.0-18.0); LYMPH # 0.6 (1.2-3.4); LYMPH % 10.6 % (22.0-35.0); MEAN CELL VOLUME 91.8 fl (80.0-105.0); MEAN CORPUSCULAR HEMOGLOBIN 30.7 pg (25.0-35.0); MEAN CORPUSCULAR HGB CONC 33.5 g/dl (31.0-37.0); MONO % 17.3 % (1.0-6.0); RBC 3.06 10^6/uL (3.5-6.1); RED CELL DISTRIBUTION WIDTH 18.2 % (11.5-14.5)
[2018-04-25 12:12] LABS: CALCIUM 9.2 mg/dL (8.4-10.5); INR 1.68; PARTIAL THROMBOPLASTIN TIME 34.2 Seconds (26.9-38.3)
[2018-04-25] MEDS ORDERED: Iodixanol 320 mg/ml 150 ml Bottle IV ONE ×2 (13:33→16:01)
[2018-04-25] MEDS ORDERED: Iodixanol 320 MG/ML 200 ML BOTTLE IV ONE (13:33)
[2018-04-25] MEDS ORDERED: Nitroglycerin 50mg in D5W 50 MG/250 ML BOTTLE IV ONE ×2 (13:33→15:25)
[2018-04-25] MEDS ORDERED: Lidocaine 2% Inj (20ml) ONE (13:33)
[2018-04-25] MEDS ORDERED: Midazolam 2 MG/2 ML VIAL ONE (15:00)
[2018-04-25] MEDS ORDERED: Verapamil 2 ML ONE (15:25)
[2018-04-25] MEDS ORDERED: DiphenhydrAMINE 50 mg/ml Inj ONE ×2 (16:04)
[2018-04-25] MEDS ORDERED: Oxycodone/Acetaminophen 5/325 mg Tab PO PRN (17:06)
[2018-04-25 17:46] VITALS: RESP 16
[2018-04-25 19:05] VITALS: BP 114/66; PULSE 76; TEMP 98
[2018-04-25 19:19] VITALS: O2SAT 98
--- NOTE | 2018-04-26 11:04 | VASCULAR ---
Date of service: 04/25/2018 PROCEDURE: 1. Abdominal aortogram and bilateral lower extremity runoff with right selective views. 2. Distal right SFA drug-eluting balloon angioplasty and focal stent placement 3. Distal right popliteal artery CSI atherectomy and angioplasty 4. Proximal to mid right peroneal artery CS I atherectomy and angioplasty HISTORY: Severe peripheral vascular disease with ischemic ulceration bilateral calves. End-stage renal disease. Diabetes. PHYSICIAN(S): Kelvin Cevallos M.D. TECHNIQUE: The relative risks and indications of the procedure were explained to the patient and his family and consent obtained. The patient was placed supine on the arteriogram table and the left groin prepped and draped in the usual sterile fashion. Conscious sedation and monitoring were provided throughout the procedure by a nurse. Via a left common femoral artery approach, a 5 Urdu sheath was placed in the left groin. Through the sheath and over a guidewire, a 5 Urdu flush catheter was placed in the abdominal aorta at the level of the renal arteries and a PA DSA abdominal aortogram performed. The catheter was pulled down to the aortic bifurcation and bilateral oblique DSA pelvic arteriograms performed. Overlapping bilateral lower extremity DSA arteriograms were obtained from the inguinal ligaments to the ankles. A 0.035 angled Glidewire was advanced over the bifurcation and placed in the mid right SFA. A 7 Urdu 65 cm destination sheath was placed in the mid right SFA. Heparin 5000 units IV and nitroglycerin in 250 mcg aliquots were given. With some difficulty, the diffuse calcified disease in the distal popliteal artery and proximal and mid right peroneal artery was crossed with various 0.035, 0.018, and 0.014 guidewires. Exchange is made for a 0.017 support wire. CS I atherectomy of the distal right popliteal artery and proximal to mid right peroneal artery was performed with a 2.0 solid and 1.25 mm microburr. The distal right popliteal artery and proximal to mid right peroneal artery was dilated with a 3.0 by 150 angioplasty balloon. A good angiographic result was obtained and no stent was required. The distal right SFA was dilated with a 6 0.0 mm x 150 mm drug-eluting balloon. A focal dissection was present. A 7 mm x 40 mm self expanding Nitinol stent was placed the distal right SFA. This was dilated with a 7 mm balloon. Completion angiograms were obtained. The sheath was removed hemostasis obtained with a Perclose device. FINDINGS: Diffuse vascular calcification is noted. The renal arteries are atretic, consistent with dialysis. The infrarenal abdominal aorta is patent. Aortic bifurcation is patent. The common iliac arteries are ectatic and patent. The internal iliac arteries are patent bilaterally. The external iliac arteries are patent bilaterally. Right lower extremity: The right common femoral artery is calcified with mild to moderate posterior plaque. There is a moderate stenosis of the right profunda femoral artery. The right SFA is diffusely diseased with multiple mild stenoses. Multi focal moderate stenoses are seen in the distal right SFA. The right popliteal artery is calcified patent above the knee. There is calcified disease of the distal right popliteal artery below the knee. There is severe right trifurcation and tibial occlusive disease. The right posterior tibial and anterior tibial arteries are occluded proximally. There is severe multifocal disease of the proximal right peroneal artery. The right peroneal artery is a predominant supply to the foot. At the ankle, the right peroneal artery gives collaterals to the plantar arch. The right dorsalis pedis artery is not opacified.. Left lower extremity: Left common femoral artery is patent. The left profunda femoral artery is patent. The left superficial femoral artery is calcified but patent throughout. No radiographically significant stenosis is appreciated. The left popliteal artery is continuous and calcified. There is critical left trifurcation and tibial occlusive disease. All 3 tibial arteries are occluded proximally. There is reconstitution of the mid left peroneal artery. IMPRESSION: 1.Successful distal right SFA drug-eluting balloon angioplasty and focal stent placement. 2. Distal right popliteal artery CSI atherectomy and angioplasty. 3. Proximal to mid right peroneal artery CS I atherectomy and angioplasty. 4. Severe advanced bilateral trifurcation and tibial occlusive disease.
== END 2018-04-27 19:29 ==
LOC: SDSVAS 11:17
PROVIDERS: ATTEND Radiology Vascular & Interventional Radiology
DX: E11.51 Type 2 diabetes mellitus with diabetic peripheral angiopathy without gangrene (principal); E11.622 Type 2 diabetes mellitus with other skin ulcer; L97.229 Non-pressure chronic ulcer of left calf with unspecified severity; L97.219 Non-pressure chronic ulcer of right calf with unspecified severity; N18.6 End stage renal disease; I12.0 Hypertensive chronic kidney disease with stage 5 chronic kidney disease or end stage renal disease; E11.22 Type 2 diabetes mellitus with diabetic chronic kidney disease; I25.10 Atherosclerotic heart disease of native coronary artery without angina pectoris; E78.5 Hyperlipidemia, unspecified; Z79.84 Long term (current) use of oral hypoglycemic drugs; Z99.2 Dependence on renal dialysis; Z85.46 Personal history of malignant neoplasm of prostate
CPT/HCPCS: 36415; 37227; 37229; 75625; 75716; 80048; 85025; 85610; 85730; 99152; 99153; C1714 ×2; C1725 ×7; C1760 ×2; C1769 ×8; C1887 ×3; C1894; C2617; J0690; J1200; J1644 ×2; J2250; J2405; J3010; Q9966; Q9967

== ENCOUNTER 2018-07-23 23:31 | Inpatient (IN) | payer MEDICARE, BC ==
[2018-07-23 23:34] VITALS: BMI 28.4
[2018-07-23] MEDS ORDERED: Sodium Chloride 0.9% 1,000 ML IV SCH (23:45)
--- NOTE | 2018-07-23 23:56 | ED PDOC ---
Arrival/HPI - General Chief Complaint: GI Problem Time Seen by Provider: 07/23/18 23:33 Historian: Patient - History of Present Illness Narrative History of Present Illness (Text): 07/24/18 00:00 77 year old male, with a past medical history of end stage renal disease, ischemic heart disease, PVD, and hypertension, who [facility] for evaluation of lower GI bleed. Patient reports dark and bright red blood noted in his stool. He endorses slight abdominal discomfort. He denies any chest pain, shortness of breath, fever, nausea, vomiting, diarrhea, or any other somatic complaints. PMD: Dr. Hernández Time/Duration: 24 hours Symptom Onset: Gradual Symptom Course: Unchanged Activities at Onset: Light Context: Home Past Medical History - Provider Review Nursing Documentation Reviewed: Yes - Infectious Disease Hx of Infectious Diseases: None - Cardiac Hx Pacemaker: No - Pulmonary Hx Respiratory Disorders: Yes Hx Asthma: Yes - Neurological Hx Paralysis: No - HEENT Hx HEENT Disorder: No - Renal Hx Dialysis: Yes - Endocrine/Metabolic Hx Diabetes Mellitus Type 2: Yes - Hematological/Oncological Hx Blood Transfusions: Yes - Integumentary Hx Dermatological Disorder: No - Musculoskeletal/Rheumatological Hx Musculoskeletal Disorders: Yes - Gastrointestinal Hx Gastrointestinal Disorders: Yes Hx Gastroesophageal Reflux: Yes - Genitourinary/Gynecological Hx Genitourinary Disorders: Yes Hx Prostate Problems: Yes - Psychiatric Hx Emotional Abuse: No Hx Physical Abuse: No Hx Substance Use: No - Surgical History Hx Cardiac Catheterization: Yes Hx Coronary Stent: Yes Other/Comment: Defibrilator placement - Anesthesia Hx Anesthesia Reactions: No Hx Malignant Hyperthermia: No - Suicidal Assessment Feels Threatened In Home Enviroment: No Family/Social History - Physician Review Nursing Documentation Reviewed: Yes Family/Social History: Unknown Family HX Smoking Status: Never Smoked Hx Alcohol Use: No Hx Substance Use: No Allergies/Home Meds Allergies/Adverse Reactions: Allergies No Known Allergies Allergy (Verified 02/09/18 09:55) Home Medications: Home Meds Medication Instructions Recorded Confirmed Carvedilol 12.5 mg PO BID 08/19/13 07/24/18 Atorvastatin [Lipitor] 40 mg PO DAILY 08/20/13 07/24/18 Acetaminophen [Pain Reliever] 650 mg PO Q4H PRN 04/20/18 07/24/18 B Complex W-C No.20/Folic Acid 1 mg PO DAILY 04/20/18 04/25/18 [Nephrocaps Softgel] Heparin [Heparin (RENAL)] 5,000 units SC Q8H 04/20/18 04/25/18 Pioglitazone [Actos] 15 mg PO DAILY 04/20/18 07/24/18 traMADol [Ultram] 50 mg PO Q8H PRN 04/20/18 07/24/18 Review of Systems - Physician Review All systems were reviewed & negative as marked: Yes - Review of Systems Constitutional: absent: Fevers Respiratory: absent: SOB Cardiovascular: absent: Chest Pain Gastrointestinal: Abdominal Pain. absent: Diarrhea, Nausea, Vomiting Neurological: absent: Headache Physical Exam Vital Signs Reviewed: Yes Vital Signs Temp Pulse Resp BP Pulse Ox 07/23/18 23:39 97.6 F 81 14 147/77 99 Temperature: Afebrile Blood Pressure: Normal Pulse: Regular Respiratory Rate: Normal Appearance: Positive for: Well-Appearing, Non-Toxic, Comfortable Pain Distress: None Mental Status: Positive for: Alert and Oriented X 3 - Systems Exam Head: Present: Atraumatic, Normocephalic Pupils: Present: PERRL Extroacular Muscles: Present: EOMI Conjunctiva: Present: Normal Mouth: Present: Moist Mucous Membranes Neck: Present: Normal Range of Motion Respiratory/Chest: Present: Clear to Auscultation, Good Air Exchange. No: Respiratory Distress, Accessory Muscle Use Cardiovascular: Present: Regular Rate and Rhythm, Normal S1, S2. No: Murmurs Abdomen: Present: Tenderness (mild tenderness to mid and lower abdomen ), Normal Bowel Sounds, Other (abdomen soft). No: Distention, Rebound, Guarding Rectal: Present: Other (No active bleeding, No stool present. ). No: Gross Blood Upper Extremity: Present: Other (+venous stasis) Lower Extremity: Present: Other (+venous stasis ) Neurological: Present: GCS=15, Speech Normal Skin: Present: Warm, Dry, Normal Color. No: Rashes Psychiatric: Present: Alert, Oriented x 3, Normal Insight, Normal Concentration Medical Decision Making ED Course and Treatment: 07/23/18 23:54 Impression: 77 year old male presents to the ED complaining of bloody stool earlier today. Differential Diagnosis included but are not limited to: Plan: -- EKG -- Labs -- CT A&P -- Chest X-ray -- Protonix -- Iv fluids -- Reassess and disposition Prior Visits: Notes and results from previous visits were reviewed. Progress Notes: 07/24/18 01:15 NSR@ 79 NS T wave changes 07/24/18 03:44 MPRESSION: Decompensated congestive heart failure, significantly progressed. Moderate cardiomegaly, unchanged. Moderate right pleural effusion, increased. Mild left pleural effusion, increased. Increased passive atelectatic airspace disease of the lower lobes. Moderate cardiomegaly. Dilated intrahepatic IVC suggestive of dysfunction of the right cardiac cavities, increased. Moderate hepatomegaly, unchanged. Interval appearance of moderate ascites. Interval appearance of moderate anasarca. Radiotherapy seeds of the prostate, unchanged. Moderate amount of fecal residue in the large bowel. Uncomplicated colonic diverticulosis. Moderate diffuse spondylosis. Moderate to severe chronic bilateral renal atrophy. Bilateral chronic changes of avascular necrosis. 07/24/18 03:[address] Hernández, who accepts patient to his service, requests Dr. Martinez and Dr. Han on consult. - RAD Interpretation Radiology Orders: 07/23/18 23:44 ABD & PELVIS W/O PO OR IV CONT [CT] Stat 07/23/18 23:45 CHEST PORTABLE [RAD] Stat - Medication Orders Current Medication Orders: Sodium Chloride (Sodium Chloride 0.9%) 1,000 mls @ 100 mls/hr IV .Q10H JUDY Discontinued Medications Pantoprazole Sodium (Protonix Inj) 40 mg IVP ONCE STA Stop: 07/23/18 23:46 - Scribe Statement The provider has reviewed the documentation as recorded by the Anam Monroy All medical record entries made by the Anam were at my direction and personally dictated by me. I have reviewed the chart and agree that the record accurately reflects my personal performance of the history, physical exam, medical decision making, and the department course for this patient. I have also personally directed, reviewed, and agree with the discharge instructions and disposition. Disposition/Present on Arrival - Present on Arrival Any Indicators Present on Arrival: No History of DVT/PE: No History of Uncontrolled Diabetes: No Urinary Catheter: No History of Decub. Ulcer: Yes History Surgical Site Infection Following: None - Disposition Have Diagnosis and Disposition been Completed?: Yes Diagnosis: GI bleed, CHF (congestive heart failure), ESRD (end stage renal disease) on dialysis Disposition: HOSPITALIZED Disposition Time: 03:55 Patient Problems: Current Active Problems Problem Status Onset CHF (congestive heart failure) Acute GI bleed Acute ESRD (end stage renal disease) on dialysis Chronic Condition: STABLE
[2018-07-24 00:11] LABS: MEAN CORPUSCULAR HEMOGLOBIN 27.8 pg (25.0-35.0); MEAN CORPUSCULAR HGB CONC 32.3 g/dl (31.0-37.0); MEAN PLATELET VOLUME 10.1 fl (7.0-11.0); RBC 3.24 10^6/uL (3.5-6.1); RED CELL DISTRIBUTION WIDTH 18.5 % (11.5-14.5); WHITE BLOOD COUNT 6.4 10^3/uL (4.5-11.0)
[2018-07-24 00:14] LABS: MEAN CELL VOLUME 86.1 fl (80.0-105.0)
[2018-07-24 00:21] LABS: ALB/GLOB RATIO 0.8 (1.1-1.8); ALBUMIN 3.5 g/dL (3.0-4.8); CALCIUM 9.5 mg/dL (8.4-10.5)
[2018-07-24 00:31] LABS: INR 1.88; PARTIAL THROMBOPLASTIN TIME 39.7 Seconds (26.9-38.3); PROTHROMBIN TIME 20.9 SECONDS (9.4-12.5)
[2018-07-24 00:32] LABS: TROPONIN I 0.02 ng/mL
--- NOTE | 2018-07-24 08:16 | CT ---
Date of service: 07/24/2018 PROCEDURE: CT Abdomen and Pelvis without intravenous contrast HISTORY: Hematochezia Relevant medical history: Prostate cancer. COMPARISON: 02/17/2018. TECHNIQUE: Unenhanced. Neither IV nor oral contrast administered Radiation dose: Total exam DLP = 939.72 mGy-cm. This CT exam was performed using one or more of the following dose reduction techniques: Automated exposure control, adjustment of the mA and/or kV according to patient size, and/or use of iterative reconstruction technique. FINDINGS: LOWER THORAX: New bilateral pleural effusions left larger than right. Associated compressive atelectasis. LIVER: Unremarkable. No gross lesion or ductal dilatation. GALLBLADDER AND BILE DUCTS: Cholelithiasis without CT evidence of acute cholecystitis. PANCREAS: Unremarkable. No gross lesion or ductal dilatation. SPLEEN: Unremarkable. ADRENALS: Unremarkable. No mass. KIDNEYS AND URETERS: Atrophic kidneys bilaterally. VASCULATURE: Atherosclerotic calcification and mural plaque present. Findings are seen throughout the aorta which is non aneurysmal. Densely calcified iliac vessels. BOWEL: Unremarkable. No obstruction. No gross mural thickening. APPENDIX: Unremarkable. Normal appendix. PERITONEUM: Moderate volume abdominal and pelvic ascites.. No free air. LYMPH NODES: Unremarkable. No enlarged lymph nodes. BLADDER: Collapsed urinary bladder. REPRODUCTIVE: [place] seeds related to brachytherapy identified in the prostate. BONES: No acute fracture. Evidence of osteonecrosis both femoral heads. OTHER FINDINGS: Diffuse edema/anasarca extending from the lower chest to the upper thighs. IMPRESSION: New pleural effusions and associated compressive atelectasis. Marked increase in intra-abdominal pelvic ascites. Cholelithiasis without CT evidence of acute cholecystitis. Profound edema and anasarca. Additional stable findings include renal atrophy, osteonecrosis of both femoral heads. Concordant results (preliminary interpretation) provided by [employer]. Procedure Completed: :59. Preliminary Report: Interpreted and electronically signed: 03:38. Final Interpretation: 08:12.
--- NOTE | 2018-07-24 09:01 | RAD ---
Date of service: 07/24/2018 HISTORY: GI bleed. COMPARISON: 02/17/2018. FINDINGS: LUNGS: No active pulmonary disease. PLEURA: New bilateral pleural effusions. CARDIOVASCULAR: Cardiomegaly/pulmonary vascular congestion. Position/ configuration of pacemaker OSSEOUS STRUCTURES: No significant abnormalities. VISUALIZED UPPER ABDOMEN: Normal. OTHER FINDINGS: None. IMPRESSION: Cardiomegaly/CHF. Associated new pleural effusions indicative of the acuity of the process.
--- NOTE | 2018-07-24 09:12 | CARD ---
APPROVED REPORT Date of service: 07/24/2018 EKG Measurement Heart [id number] <Conclusion> Normal sinus rhythm Nonspecific T wave abnormality Prolonged QT Abnormal ECG
[2018-07-24] MEDS ORDERED: Albumin Human 25% (12.5 gm/50 ml) IV PRN ×2 (09:52→10:19)
[2018-07-24 10:18] LABS: ALB/GLOB RATIO 0.9 (1.1-1.8); ALBUMIN 3.3 g/dL (3.0-4.8); ALT/SGPT < 6 U/L (7-56); AST/SGOT 18 U/L (17-59); BLOOD UREA NITROGEN 41 mg/dL (7-21); CALCIUM 9.6 mg/dL (8.4-10.5); GFR NON-AFRICAN AMERICAN 10
[2018-07-24] MEDS: Darbepoetin Alfa 60 mcg/ml Inj IVP SCH (10:43)
[2018-07-24] MEDS: [UNRECOGNIZED DRUG - REMARK] PO SCH (10:54)
--- NOTE | 2018-07-24 11:41 | CP.PCM.CON ---
<Sudarshan Yo - Last Filed: 07/24/18 12:39> History of Present Illness - History of Present Illness History of Present Illness: PGY6 GI Fellow Consult Note Patient is a 77yo male with PMHx significant for ESRD on HD T//, PVD, HTN, systolic CHF with EF 20%, chronic anemia and suspected dementia who [place] with complaint of bloody stool. The patient is a poor historian and unable to provide details as to how he arrived in the ED. Per EMR, patient was noted to have dark, bloody stool and sent directed to the ED from his nursing facility. He admits to shortness of breath and productive cough as well as noting recent bloody stool. Denies any dizziness, nausea, vomiting, abdominal pain. 12 system ROS limited given mentation but otherwise negative PMHx: See HPI PSHx: MIAN CORREA FHx: Unable to assess Social: Denies tobacco, EtOH or illicit drug use Endo: Patient denies prior endoscopic evaluation though EMR states possibly colonoscopy 4 years ago - no records for review Past Patient History - Infectious Disease Hx of Infectious Diseases: None - Past Social History Smoking Status: Unknown If Ever Smoked - CARDIAC Hx Hypertension: Yes Hx Peripheral Vascular Disease: Yes - PULMONARY Hx Respiratory Disorders: Yes Hx Asthma: Yes - NEUROLOGICAL Hx Dementia: Yes - HEENT Hx HEENT Problems: No - RENAL Hx Dialysis: Yes (, ,MON) Hx Renal Failure: Yes (ESRD) - ENDOCRINE/METABOLIC Hx Diabetes Mellitus Type 2: Yes - HEMATOLOGICAL/ONCOLOGICAL Hx Blood Disorders: Yes Hx Anemia: Yes Hx Cancer: Yes (prostate with seed implants) - INTEGUMENTARY Hx Dermatological Problems: No - MUSCULOSKELETAL/RHEUMATOLOGICAL Hx Arthritis: Yes Hx Falls: No - GASTROINTESTINAL Hx Gastrointestinal Disorders: Yes Hx Gastroesophageal Reflux: Yes - GENITOURINARY/GYNECOLOGICAL Hx Genitourinary Disorders: Yes Hx Prostate Problems: Yes - PSYCHIATRIC Hx Emotional Abuse: No Hx Physical Abuse: No Hx Substance Use: No - SURGICAL HISTORY Hx Cardiac Catheterization: Yes Hx Coronary Stent: Yes Other/Comment: Defibrilator placement - ANESTHESIA Hx Anesthesia Reactions: No Hx Malignant Hyperthermia: No Meds Allergies/Adverse Reactions: Allergies Allergy/AdvReac Type Severity Reaction Status Date / Time No Known Allergies Allergy Verified 02/09/18 09:55 - Medications Medications: Current Medications Acetaminophen (Tylenol 325mg Tab) 650 mg PO Q4H PRN PRN Reason: Fever >100.4 F Albumin Human (Albumin Human 25% (12.5 Gm/50 Ml)) 25 gm IV TTS PRN PRN Reason: Other Aspirin (Ecotrin) 81 mg PO DAILY [facility] Last Admin: 07/24/18 10:50 Dose: 81 mg Atorvastatin Calcium (Lipitor) 40 mg PO DAILY [facility] Last Admin: 07/24/18 10:50 Dose: 40 mg Calcitriol (Rocaltrol) 0.25 mcg PO DAILY [facility] Last Admin: 07/24/18 10:50 Dose: 0.25 mcg Carvedilol (Coreg) 12.5 mg PO BID [facility] Last Admin: 07/24/18 10:00 Dose: Not Given Darbepoetin Jaxon (Aranesp) 60 mcg IVP QWK [facility] Last Admin: 07/24/18 10:43 Dose: Not Given Heparin Sodium (Porcine) (Heparin) 5,000 units SC Q8H [facility]; Protocol Last Admin: 07/24/18 10:56 Dose: Not Given Non-Formulary Medication (B Complex W-C No.20/Folic Acid [Nephrocaps Softgel]) 1 mg PO DAILY [facility] Last Admin: 07/24/18 10:54 Dose: Not Given Pioglitazone HCl (Actos) 15 mg PO DAILY [facility] Last Admin: 07/24/18 10:50 Dose: 15 mg Sevelamer HCl (Renagel) 800 mg PO AC [facility] Last Admin: 07/24/18 10:50 Dose: 800 mg Physical Exam - Constitutional Appears: No Acute Distress, Confused, Chronically Ill - Eye Exam Eye Exam: EOMI, PERRL - ENT Exam ENT Exam: Mucous Membranes Moist - Respiratory Exam Respiratory Exam: Decreased Breath Sounds, Rales. absent: Clear to Auscultation Bilateral, Rhonchi, Wheezes - Cardiovascular Exam Cardiovascular Exam: RRR, +S1, +S2 - GI/Abdominal Exam GI & Abdominal Exam: Normal Bowel Sounds, Soft. absent: Distended, Firm, Guarding, Organomegaly, Rigid, Tenderness - Rectal Exam Rectal Exam: Black Stool, Bloody Stool - Extremities Exam Extremities exam: Negative for: normal inspection Additional comments: ? chronic lymphedema of legs B/L with thickened skin and ? peau d'orange - Neurological Exam Neurological exam: Altered - Psychiatric Exam Psychiatric exam: Normal Affect, Normal Mood - Skin Skin Exam: Dry, Warm Results - Vital Signs Recent Vital Signs: Last Vital Signs Temp 97.6 F 07/23/18 23:39 Pulse 77 07/24/18 06:05 Resp 16 07/24/18 08:33 BP 124/78 07/24/18 06:05 Pulse Ox 100 07/24/18 06:05 - Labs Result Diagrams: 07/24/18 00:00 07/24/18 09:00 Labs: Laboratory Results - last 24 hr 07/24/18 07/24/18 07/24/18 00:00 00:00 00:00 WBC RBC Hgb Hct MCV MCH MCHC RDW Plt Count MPV PT 20.9 H INR 1.88 APTT 39.7 H Sodium 134 Potassium 4.5 Chloride 96 L Carbon Dioxide 27 Anion Gap 15 BUN 41 H Creatinine 4.8 H Est GFR ( Amer) 14 Est GFR (Non-Af Amer) 12 Random Glucose 143 H Calcium 9.5 Total Bilirubin 0.6 AST 28 ALT 13 Alkaline Phosphatase 134 H Lactate Dehydrogenase 476 Total Creatine Kinase 42 Troponin I 0.02 D Total Protein 7.6 Albumin 3.5 Globulin 4.1 Albumin/Globulin Ratio 0.8 L Blood Type O POSITIVE Antibody Screen Negative BBK History Checked Patient has bt 07/24/18 07/24/18 00:00 09:00 WBC 6.4 RBC 3.24 L Hgb 9.0 L Hct 27.9 L MCV 86.1 D MCH 27.8 MCHC 32.3 RDW 18.5 H Plt Count 221 MPV 10.1 PT INR APTT Sodium 136 Potassium 4.2 Chloride 97 L Carbon Dioxide 27 Anion Gap 16 BUN 41 H Creatinine 5.4 H Est GFR ( Amer) 12 Est GFR (Non-Af Amer) 10 Random Glucose 125 H Calcium 9.6 Total Bilirubin 0.5 AST 18 ALT < 6 L Alkaline Phosphatase 124 Lactate Dehydrogenase Total Creatine Kinase Troponin I Total Protein 7.0 Albumin 3.3 Globulin 3.7 Albumin/Globulin Ratio 0.9 L Blood Type Antibody Screen BBK History Checked Assessment & Plan - Assessment and Plan (Free Text) Assessment: Patient is a 77yo male with PMHx significant for ESRD on HD T//, PVD, HTN, systolic CHF with EF 20%, chronic anemia and suspected dementia who [place] the ED [place] with complaint of bloody stool -Melena/Hematochezia -CHF -ESRD -PVD Plan: -Patient with melena and fresh red blood on rectal examination -Significant comorbidities such as severe systolic CHF (EF 20% on most recent echo), ESRD and B/L pleural effusions with present dyspnea would limit ability to undergo endoscopic evaluation -Once medically optimized, patient would benefit from EGD/Colonoscopy -Differential for rectal bleeding includes upper sources such as PUD/esophagitis as well as lower sources such as diverticulosis or ischemic colitis -CT reviewed without any overt colitis but limited in absence or oral contrast -Encourage supportive care with blood transfusion as necessary -Would hold Heparin in light of fresh blood per rectum -Will follow clinical course - Date & Time Date: 07/24/18 Time: 11:00 <Eusebio Han - Last Filed: 07/24/18 16:03> Meds - Medications Medications: Current Medications Acetaminophen (Tylenol 325mg Tab) 650 mg PO Q4H PRN PRN Reason: Fever >100.4 F Albumin Human (Albumin Human 25% (12.5 Gm/50 Ml)) 25 gm IV TTS PRN PRN Reason: Other Aspirin (Ecotrin) 81 mg PO DAILY [facility] Last Admin: 07/24/18 10:50 Dose: 81 mg Atorvastatin Calcium (Lipitor) 40 mg PO DAILY [facility] Last Admin: 07/24/18 10:50 Dose: 40 mg Calcitriol (Rocaltrol) 0.25 mcg PO DAILY [facility] Last Admin: 07/24/18 10:50 Dose: 0.25 mcg Carvedilol (Coreg) 12.5 mg PO BID [facility] Last Admin: 07/24/18 10:00 Dose: Not Given Darbepoetin Jaxon (Aranesp) 60 mcg IVP QWK [facility] Last Admin: 07/24/18 10:43 Dose: Not Given Heparin Sodium (Porcine) (Heparin) 5,000 units SC Q8H [facility]; Protocol Last Admin: 07/24/18 10:56 Dose: Not Given Non-Formulary Medication (B Complex W-C No.20/Folic Acid [Nephrocaps Softgel]) 1 mg PO DAILY [facility] Last Admin: 07/24/18 10:54 Dose: Not Given Pioglitazone HCl (Actos) 15 mg PO DAILY [facility] Last Admin: 07/24/18 10:50 Dose: 15 mg Sevelamer HCl (Renagel) 800 mg PO AC [facility] Last Admin: 07/24/18 10:50 Dose: 800 mg Results - Vital Signs Recent Vital Signs: Last Vital Signs Temp 97 F L 07/24/18 12:00 Pulse 77 07/24/18 12:00 Resp 18 07/24/18 12:00 BP 136/85 07/24/18 12:00 Pulse Ox 100 07/24/18 06:05 - Labs Result Diagrams: 07/24/18 00:00 07/24/18 09:00 Labs: Laboratory Results - last 24 hr 07/24/18 07/24/18 07/24/18 00:00 00:00 00:00 WBC RBC Hgb Hct MCV MCH MCHC RDW Plt Count MPV PT 20.9 H INR 1.88 APTT 39.7 H Sodium 134 Potassium 4.5 Chloride 96 L Carbon Dioxide 27 Anion Gap 15 BUN 41 H Creatinine 4.8 H Est GFR ( Amer) 14 Est GFR (Non-Af Amer) 12 Random Glucose 143 H Calcium 9.5 Total Bilirubin 0.6 AST 28 ALT 13 Alkaline Phosphatase 134 H Lactate Dehydrogenase 476 Total Creatine Kinase 42 Troponin I 0.02 D Total Protein 7.6 Albumin 3.5 Globulin 4.1 Albumin/Globulin Ratio 0.8 L Blood Type O POSITIVE Antibody Screen Negative BBK History Checked Patient has bt 07/24/18 07/24/18 00:00 09:00 WBC 6.4 RBC 3.24 L Hgb 9.0 L Hct 27.9 L MCV 86.1 D MCH 27.8 MCHC 32.3 RDW 18.5 H Plt Count 221 MPV 10.1 PT INR APTT Sodium 136 Potassium 4.2 Chloride 97 L Carbon Dioxide 27 Anion Gap 16 BUN 41 H Creatinine 5.4 H Est GFR ( Amer) 12 Est GFR (Non-Af Amer) 10 Random Glucose 125 H Calcium 9.6 Total Bilirubin 0.5 AST 18 ALT < 6 L Alkaline Phosphatase 124 Lactate Dehydrogenase Total Creatine Kinase Troponin I Total Protein 7.0 Albumin 3.3 Globulin 3.7 Albumin/Globulin Ratio 0.9 L Blood Type Antibody Screen BBK History Checked Attending/Attestation - Attestation I have fully participated in the care of the patient.: Yes I have reviewed all pertinent clinical information: Yes Notes (Text): 07/24/18 16:00 ESRD on HD CHF HTN PVD Dementia Anemia, rectal bleeding CT imaging reviewed by me showing significant intraabdominal ascites and pleural effusions - Liquid diet as tolerated - Continue to monitor H/H - Continue with PPI therapy - Patient would benefit from EGD/colonoscopy evaluation given clinical presentation with presence of fresh blood on rectal exam, however requires medical optimization prior to procedure. Follow up cardiology and nephrology recommendations. Suggest pulmonary evaluation for consideration of thoracentesis/paracentesis. - Will continue to monitor patient clinical course
--- NOTE | 2018-07-24 15:07 | CP.PCM.APN ---
Subjective - Date & Time of Evaluation Date of Evaluation: 07/24/18 Time of Evaluation: 09:45 - Subjective Subjective: pt seen and evaluated at bedside , pt with liquid breakfast, tolerating with no n/v reported pt in NAD Review of Systems - Constitutional Constitutional: As Per HPI Objective - Vital Signs/Intake and Output Vital Signs (last 24 hours): Temp Pulse Resp BP Pulse Ox 97 F L 77 18 136/85 100 07/24/18 12:00 07/24/18 12:00 07/24/18 12:00 07/24/18 12:00 07/24/18 06:05 - Medications Medications: Current Medications Acetaminophen (Tylenol 325mg Tab) 650 mg PO Q4H PRN PRN Reason: Fever >100.4 F Albumin Human (Albumin Human 25% (12.5 Gm/50 Ml)) 25 gm IV TTS PRN PRN Reason: Other Aspirin (Ecotrin) 81 mg PO DAILY [facility] Last Admin: 07/24/18 10:50 Dose: 81 mg Atorvastatin Calcium (Lipitor) 40 mg PO DAILY [facility] Last Admin: 07/24/18 10:50 Dose: 40 mg Calcitriol (Rocaltrol) 0.25 mcg PO DAILY [facility] Last Admin: 07/24/18 10:50 Dose: 0.25 mcg Carvedilol (Coreg) 12.5 mg PO BID [facility] Last Admin: 07/24/18 10:00 Dose: Not Given Darbepoetin Jaxon (Aranesp) 60 mcg IVP QWK [facility] Last Admin: 07/24/18 10:43 Dose: Not Given Heparin Sodium (Porcine) (Heparin) 5,000 units SC Q8H [facility]; Protocol Last Admin: 07/24/18 10:56 Dose: Not Given Non-Formulary Medication (B Complex W-C No.20/Folic Acid [Nephrocaps Softgel]) 1 mg PO DAILY [facility] Last Admin: 07/24/18 10:54 Dose: Not Given Pioglitazone HCl (Actos) 15 mg PO DAILY [facility] Last Admin: 07/24/18 10:50 Dose: 15 mg Sevelamer HCl (Renagel) 800 mg PO AC [facility] Last Admin: 07/24/18 10:50 Dose: 800 mg - Labs Labs: 07/24/18 00:00 07/24/18 09:00 PT 20.9 SECONDS (9.4-12.5) H 05/07/19 00:00 INR 1.88 07/24/18 00:00 APTT 39.7 Seconds (26.9-38.3) H 07/24/18 00:00 - Constitutional Appears: Non-toxic, No Acute Distress - Head Exam Head Exam: ATRAUMATIC, NORMOCEPHALIC - Eye Exam Eye Exam: Normal appearance, PERRL - ENT Exam ENT Exam: Normal Exam - Neck Exam Neck Exam: Normal Inspection - Respiratory Exam Respiratory Exam: Decreased Breath Sounds - Cardiovascular Exam Cardiovascular Exam: +S1, +S2 - GI/Abdominal Exam GI & Abdominal Exam: Soft, Normal Bowel Sounds - Extremities Exam Extremities Exam: Full ROM, Normal Capillary Refill Additional comments: ANTHONY - Neurological Exam Neurological Exam: Alert, Awake - Psychiatric Exam Psychiatric exam: Normal Mood - Skin Skin Exam: Dry, Intact Assessment and Plan - Assessment and Plan (Free Text) Plan: ITS Impressions Abdomen/Pelvis CT 07/23/18 23:44 IMPRESSION: New pleural effusions and associated compressive atelectasis. Marked increase in intra-abdominal pelvic ascites. Cholelithiasis without CT evidence of acute cholecystitis. Profound edema and anasarca. Additional stable findings include renal atrophy, osteonecrosis of both femoral heads. Concordant results (preliminary interpretation) provided by [employer]. Procedure Completed: 01:59. Preliminary Report: Interpreted and electronically signed: 03:38. Final Interpretation: 08:12. Chest X-Ray 07/23/18 23:45 IMPRESSION: Cardiomegaly/CHF. Associated new pleural effusions indicative of the acuity of the process. A/P 77 yr old with pmh sig for ESRD on HD Tues, Thur, Sat, PVD, HTN, systolic CHF, chronic anemia,dementia who presented with bright blood per rectum now admitted for further evaluation and treatment with GI cardio and renal consultation. will follow BPCI/TIC - BPCIA/TIC Educated pt/family on BPCIA/CIR/Med to Bed Programs: N/A Flyers given, including [facility] Beneficiary letter: N/A Pt/family verbalized understanding & agreed to program: N/A
--- NOTE | 2018-07-24 16:04 | CON ---
DATE: 07/24/2018 REQUESTING PHYSICIAN: Dr. Hernández. REASON FOR CONSULTATION: Congestive heart failure and gastrointestinal bleeding. HISTORY: This is a 77-year-old man, well known to me, with a history of coronary artery disease and LV dysfunction, who presented to the emergency room with bright red blood and dark stool. He was transferred from a [facility] for evaluation. He denied any discomfort. He has a history of chronic renal failure, maintained on hemodialysis. He also has a history of diabetes and hypertension. He has a known severe LV dysfunction, status post prophylactic ICD implant in the past. He has coronary artery disease for which he underwent a stent placement as well. He is seen lying in bed on telemetry. His speech appears mildly garbled at the present time. PAST MEDICAL HISTORY: His past history is notable for problems as mentioned above. SOCIAL HISTORY: He does not smoke or drink. He is and retired. ALLERGIES: None. MEDICATIONS AT HOME: Included carvedilol 12.5 mg b.i.d. on non-dialysis day, Lipitor 40 mg daily, Actos, and Ultram p.r.n. FAMILY HISTORY: Both parents from age-related illness. REVIEW OF SYSTEMS: A 12-point review of systems is negative other than the problems as mentioned above. PHYSICAL EXAMINATION: GENERAL: He is an elderly man, who appears comfortable at rest. VITAL SIGNS: His blood pressure is 124/78 with pulse 76, respirations 16. He is afebrile. HEENT: Normocephalic, atraumatic. NECK: Supple. No JVD noted. CHEST: Few scattered rhonchi heard. HEART: PMI displaced laterally with soft tones noted. ABDOMEN: Soft and mildly obese with normoactive bowel sounds. EXTREMITIES: No clubbing, cyanosis, or edema. SKIN: Warm and dry. PSYCHIATRIC: Normal mood and affect. NEUROLOGIC: Again, speech appears mildly garbled. DIAGNOSTIC DATA: Potassium 4.2, BUN and creatinine 41 and 5.4, hemoglobin and hematocrit 9 and 27.9 with a white count of 6.4 and platelet count of 221,000. Electrocardiogram reveals sinus rhythm with nonspecific ST-T abnormalities, mild QT prolongation is noted. Chest x-ray reveals a large cardiac silhouette with mild pulmonary vascular congestion. CT of the abdomen and pelvis reveals cholelithiasis with no CT evidence of acute cholecystitis, ascites, and renal atrophy. IMPRESSION: 1. Apparent gastrointestinal bleeding, source to be identified. 2. Decompensated congestive heart failure, [id number], predominantly systolic. 3. Known coronary artery disease, status post remote percutaneous coronary intervention. 4. Chronic renal failure, maintained on hemodialysis. RECOMMENDATIONS: Obviously, all the antiplatelet and antithrombotic therapy should be withheld. His carvedilol will be resumed as his blood pressure allows. He is at moderately increased risk for any endoscopic procedures given his current cardiac status; however, there is no evidence of active ischemia. Continue dialysis is advisable with fluid removal as tolerated. Thank you for this consultation. I will be happy to follow along through her hospital course as needed. Guillermo Baker MD
--- NOTE | 2018-07-24 16:14 | HP ---
DATE OF EXAM: 07/24/2018 HISTORY OF PRESENT ILLNESS: He came into the emergency room in the middle of the night. I got a call from the nurses at [facility] that he had a bowel movement that was with blood and we sent him to the emergency room for evaluation. He is a little bit tired this morning, not feeling that great overall. This is a 77-year-old man who presented from the long-term with lower GI bleed, bright red blood in stool. I think he has done this in the past. PAST MEDICAL HISTORY: He has a past medical history of end-stage renal disease on hemodialysis, ischemic heart disease, peripheral vascular disease, hypertension. He has had leg ulcers, asthma. He has had blood transfusions in the past, gastroesophageal reflux disease, prostate problems, BPH.. He has had coronary stents, defibrillator placement. FAMILY HISTORY: Unknown family history. SOCIAL HISTORY: No smoking or drinking. No drugs. ALLERGIES: NO KNOWN DRUG ALLERGIES. MEDICATIONS: He is on labetalol, Lipitor, Tylenol, vitamin B complex, heparin, Actos, and Ultram. REVIEW OF SYSTEMS: He is just kind of tired. No shortness of breath. No chest pain, little bit of abdominal pain. There was blood in the stool. No headache. No fevers, just lethargic, tired. PHYSICAL EXAMINATION: GENERAL: He is well-appearing, but very tired, lethargic in bed alert and oriented x3. VITAL SIGNS: 97.6 temperature, 81 pulse, 14 respiratory rate, 147/77, blood pressure, 99% O2 sat. HEENT: Head is atraumatic, normocephalic. Extraocular muscles are intact. Pupils are equally reactive to light. Throat is dry. NECK: Supple. HEART: Regular rate. Normal S1, S2. LUNGS: Decreased breath sounds were clear. No wheezes, rhonchi or rales. ABDOMEN: Soft, nontender, positive bowel sounds. No guarding, no rebound or CVA tenderness. No distention. EXTREMITIES: He has got traces of any edema in lower extremities. He does have issues on both lower extremities. NEUROLOGIC: GCS is 15. Cranial nerves II through XII grossly intact. Alert and oriented x3. SKIN: Warm and dry. Fair turgor. No apparent rashes or ulcers appreciated. LABORATORY DATA: Multiple tests done. EKG was normal sinus rhythm, nonspecific T-wave changes. He did have a CAT scan of the abdomen and pelvis, moderate cardiomegaly, decompensated congestive heart failure, significant progress. He has got passive atelectasis, air space lower lobes, moderate cardiomegaly. No other consult was seen with a Renal, Cardiology. Also GI for the GI bleed. He will need to have his dialysis today. He is on liquid diet at this time. Check the stools for occult blood. He is here so far on observation level of care, waiting for labs to come back from this morning. His labs from last night 6.4 white count, 9 hemoglobin, 27.9 hematocrit with 221 platelets. INR is 1.88. He has had a sodium 134, potassium 4.5, BUN 41, creatinine 4.8 on dialysis, GFR is 12. Sugar is 143, calcium is 9.5, total bili is 0.6. AST is 28, ALT is 13, alk phos 134. Lactate dehydrogenase is 476. Total creatine kinase is 42. Troponin I 0.02, total protein 7.6, albumin is 3.5. IMPRESSION AND PLAN: I will put him back on his regular medications. I am hoping that he will improve, wait for Renal to come in and hopefully he will be on dialysis today, GI bleed, also end-stage renal disease in either dialysis. Nacho Hernández DO [facility]
[2018-07-24] MEDS ORDERED: Vancomycin 1gm in NS 250ml 1 GM/250 ML BAG IVPB STA (19:29)
--- NOTE | 2018-07-24 20:14 | CP.PCM.PN ---
<Toshia Sauer - Last Filed: 07/24/18 20:07> Subjective - Date & Time of Evaluation Date of Evaluation: 07/24/18 Time of Evaluation: 20:07 - Subjective Subjective: Toshia Sauer PGY1 Paged by nurse for patient with active SOB. Upon evaluation, patient noted have BP of 115/62, HR of 86, O2 sat of 100% on 3L NC and RR of 24. Patient is alert to person but not place or time. Patient endorses difficulty breathing and denies CP, nausea, vomiting, abdominal pain, headaches, dizziness, numbness, tingling, fevers and chills. He completed HD today and had 2.5 liters removed and plan for extra dialysis tomorrow as per baseball inspector and repairer. 12 point ROS limited due to patient status. PE Appearance: confused HEENT: normocephalic, atraumatic. EOMI, PERRLA Heart: RRR, S1, S2 Lungs: CTA B/L, no wheezing. Decreased breath sounds noted in lower quadrants Abdomen: soft, non tender, globular Neuro: Alert to person, confused. CNII-XII intact Skin: warm, dry Plan: -ABG -CXR -CBC -CMP Objective - Vital Signs/Intake and Output Vital Signs (last 24 hours): Temp Pulse Resp BP Pulse Ox 95.3 F L 81 18 136/85 100 07/24/18 19:04 07/24/18 18:00 07/24/18 12:00 07/24/18 12:00 07/24/18 06:05 - Medications Medications: Current Medications Acetaminophen (Tylenol 325mg Tab) 650 mg PO Q4H PRN PRN Reason: Fever >100.4 F Albumin Human (Albumin Human 25% (12.5 Gm/50 Ml)) 25 gm IV TTS PRN PRN Reason: Other Aspirin (Ecotrin) 81 mg PO DAILY [facility] Last Admin: 07/24/18 10:50 Dose: 81 mg Atorvastatin Calcium (Lipitor) 40 mg PO DAILY [facility] Last Admin: 07/24/18 10:50 Dose: 40 mg Calcitriol (Rocaltrol) 0.25 mcg PO DAILY [facility] Last Admin: 07/24/18 10:50 Dose: 0.25 mcg Carvedilol (Coreg) 12.5 mg PO BID [facility] Last Admin: 07/24/18 18:31 Dose: Not Given Darbepoetin Jaxon (Aranesp) 60 mcg IVP QWK [facility] Last Admin: 07/24/18 10:43 Dose: Not Given Heparin Sodium (Porcine) (Heparin) 5,000 units SC Q8H [facility]; Protocol Last Admin: 07/24/18 18:31 Dose: Not Given Cefepime HCl (Maxipime 1gm) 1 gm in 100 mls @ 100 mls/hr IVPB Q24H [facility]; Protocol Stop: 08/02/18 19:31 Vancomycin HCl (Vancomycin 1gm) 1 gm in 250 mls @ 167 mls/hr IVPB STAT [facility]; Protocol Stop: 07/24/18 20:58 Non-Formulary Medication (B Complex W-C No.20/Folic Acid [Nephrocaps Softgel]) 1 mg PO DAILY [facility] Last Admin: 07/24/18 10:54 Dose: Not Given Pioglitazone HCl (Actos) 15 mg PO DAILY [facility] Last Admin: 07/24/18 10:50 Dose: 15 mg Sevelamer HCl (Renagel) 800 mg PO AC [facility] Last Admin: 07/24/18 18:36 Dose: Not Given - Labs Labs: 07/24/18 00:00 07/24/18 09:00 PT 20.9 SECONDS (9.4-12.5) H 07/24/18 00:00 INR 1.88 07/24/18 00:00 APTT 39.7 Seconds (26.9-38.3) H 07/24/18 00:00 <Clarissa Alarcon - Last Filed: 07/24/18 23:09> Objective - Vital Signs/Intake and Output Vital Signs (last 24 hours): Temp Pulse Resp BP Pulse Ox 95.3 F L 84 18 136/85 100 07/24/18 19:04 07/24/18 21:59 07/24/18 12:00 07/24/18 12:00 07/24/18 06:05 - Medications Medications: Current Medications Acetaminophen (Tylenol 325mg Tab) 650 mg PO Q4H PRN PRN Reason: Fever >100.4 F Albumin Human (Albumin Human 25% (12.5 Gm/50 Ml)) 25 gm IV TTS PRN PRN Reason: Other Aspirin (Ecotrin) 81 mg PO DAILY [facility] Last Admin: 07/24/18 10:50 Dose: 81 mg Atorvastatin Calcium (Lipitor) 40 mg PO DAILY [facility] Last Admin: 07/24/18 10:50 Dose: 40 mg Calcitriol (Rocaltrol) 0.25 mcg PO DAILY [facility] Last Admin: 07/24/18 10:50 Dose: 0.25 mcg Carvedilol (Coreg) 12.5 mg PO BID [facility] Last Admin: 07/24/18 18:31 Dose: Not Given Darbepoetin Jaxon (Aranesp) 60 mcg IVP QWK [facility] Last Admin: 07/24/18 10:43 Dose: Not Given Heparin Sodium (Porcine) (Heparin) 5,000 units SC Q8H [facility]; Protocol Last Admin: 07/24/18 18:31 Dose: Not Given Cefepime HCl (Maxipime 1gm) 1 gm in 100 mls @ 100 mls/hr IVPB Q24H [facility]; Protocol Stop: 08/02/18 19:31 Last Admin: 07/24/18 20:17 Dose: 100 mls/hr Non-Formulary Medication (B Complex W-C No.20/Folic Acid [Nephrocaps Softgel]) 1 mg PO DAILY [facility] Last Admin: 07/24/18 10:54 Dose: Not Given Pioglitazone HCl (Actos) 15 mg PO DAILY [facility] Last Admin: 07/24/18 10:50 Dose: 15 mg Sevelamer HCl (Renagel) 800 mg PO AC [facility] Last Admin: 07/24/18 18:36 Dose: Not Given - Labs Labs: 07/24/18 20:00 07/24/18 20:00 PT 20.9 SECONDS (9.4-12.5) H 07/24/18 00:00 INR 1.88 07/24/18 00:00 APTT 39.7 Seconds (26.9-38.3) H 07/24/18 00:00 Attending/Attestation - Attestation I have personally seen and examined this patient.: Yes I have fully participated in the care of the patient.: Yes I have reviewed all pertinent clinical information, including history, physical exam and plan: Yes Notes (Text): 07/24/18 22:55 Pt seen. Case discussed with the resident. Additional notes: Pt's rectal temp at the time of examination was 95.3,has a bear hugger on him He was somewhat lethargic,easily arousable,follows c ommands but does not answer questions. Abdomen :ascites noted. Ext: DP pulses not felt,dressings noted on both lower shins. Order for ABG was modified to include shock panel Pt was already placed on antibiotics per orders of Dr Maldonado. IMP: Lethargy Plan:as already ordered.
[2018-07-24] MEDS: Cefepime 1gm in NS 100ml 1 GM/100 ML BAG IVPB SCH (20:17)
[2018-07-24 20:43] LABS: BASO # 0.04 K/mm3 (0.0-2.0); BASO % 0.8 % (0.0-3.0); EOS # 0.3 (0.0-0.7); EOS % 6.4 % (1.5-5.0); HEMOGLOBIN 8.5 g/dL (14.0-18.0); LYMPH # 0.4 (1.2-3.4); LYMPH % 8.8 % (22.0-35.0); MEAN CELL VOLUME 86.3 fl (80.0-105.0); MEAN CORPUSCULAR HEMOGLOBIN 27.8 pg (25.0-35.0); MEAN CORPUSCULAR HGB CONC 32.2 g/dl (31.0-37.0); MEAN PLATELET VOLUME 9.9 fl (7.0-11.0); MONO # 0.9 (0.1-0.6); MONO % 18.3 % (1.0-6.0); RBC 3.06 10^6/uL (3.5-6.1); RED CELL DISTRIBUTION WIDTH 18.3 % (11.5-14.5)
[2018-07-24 20:44] LABS: ARTERIAL BLOOD GAS HCO3 28.6 mmol/L (21-28); ARTERIAL BLOOD GAS O2 SAT 97.2 % (95-98); ARTERIAL BLOOD GAS PCO2 53 mm/Hg (35-45); ARTERIAL BLOOD GAS PH 7.34 (7.35-7.45); ARTERIAL BLOOD GAS TCO2 30.2 mmol.L (22-28)
[2018-07-24 21:04] LABS: ALB/GLOB RATIO 0.8 (1.1-1.8); ALBUMIN 3.1 g/dL (3.0-4.8)
--- NOTE | 2018-07-25 08:09 | RAD ---
Date of service: 07/24/2018 HISTORY: SOB COMPARISON: 07/24/2018 earlier TECHNIQUE: 1 view obtained. FINDINGS: LUNGS: Hazy infiltrate and bilateral pleural effusions with vascular congestion PLEURA: No significant pleural effusion identified, no pneumothorax apparent. CARDIOVASCULAR: Aortic calcification and tortuosity Moderate cardiomegaly. Vascular congestion OSSEOUS STRUCTURES: No significant abnormalities. VISUALIZED UPPER ABDOMEN: Normal. OTHER FINDINGS: None. IMPRESSION: Hazy infiltrate and bilateral pleural effusions with vascular congestion
[2018-07-25 09:38] LABS: HEMOGLOBIN 8.2 g/dL (14.0-18.0); MEAN CELL VOLUME 86.9 fl (80.0-105.0); MEAN CORPUSCULAR HEMOGLOBIN 27.5 pg (25.0-35.0); MEAN CORPUSCULAR HGB CONC 31.7 g/dl (31.0-37.0); MEAN PLATELET VOLUME 9.3 fl (7.0-11.0); RBC 2.98 10^6/uL (3.5-6.1); RED CELL DISTRIBUTION WIDTH 18.4 % (11.5-14.5); WHITE BLOOD COUNT 5.6 10^3/uL (4.5-11.0)
[2018-07-25 09:53] LABS: ALB/GLOB RATIO 0.9 (1.1-1.8); ALBUMIN 3.3 g/dL (3.0-4.8); CALCIUM 9.3 mg/dL (8.4-10.5)
--- NOTE | 2018-07-25 12:24 | PN ---
DATE: 07/25/2018 SUBJECTIVE: The patient is seen lying in bed on telemetry. He has some increased shortness of breath with minimal exertion. He denies any chest pain. His hemoglobin has dropped slightly from 9.0 to 8.5. He has had no evidence of further GI bleeding. PHYSICAL EXAMINATION: GENERAL: He is a overweight elderly man. VITAL SIGNS: Blood pressure is 120/76 with a pulse of 90 and sinus, respirations are 16. He is afebrile. HEENT: JVD is present. CHEST: Diminished breath sounds at the bases. HEART: PMI displaced laterally with soft tones noted. Systolic murmur at left sternal border. ABDOMEN: Soft and nontender with bowel sounds. EXTREMITIES: 1+ ankle edema. LABORATORY DATA: Potassium 3.6, BUN and creatinine 23 and 3.3, hemoglobin and hematocrit 8.5 and 26.4 with a white count 5.0, platelet count 193,000. Recent blood gas showed pH of 7.34, pCO2 of 53 and pO2 of 96. Chest x-ray reveals increased cardiac silhouette with bilateral congestive changes as well as bilateral effusions. CURRENT MEDICATIONS: Include Actos, carvedilol 12.5 mg b.i.d., Ecotrin once daily, subcutaneous heparin, Lipitor 40 mg daily, Maxipime and Rocaltrol. Rocaltrol. IMPRESSION: 1. Decompensated congestive heart failure, acute on chronic, predominantly systolic. 2. Recent gastrointestinal bleeding, source not identified as of yet. 3. Known coronary artery disease status post remote percutaneous coronary intervention. 4. Severe left ventricular dysfunction. 5. Status post implantable cardioverter-defibrillator implant. 6. Chronic renal failure, maintained on hemodialysis. RECOMMENDATIONS: His current medications will continue for now. Carvedilol will be held prior to his additional dialysis as session scheduled for today to avoid hypotension. Intensified dialysis for additional fluid removal as advised and if endoscopic procedures are planned he is at mild to moderately increased risk, but this risk appears to be acceptable at this time. I will continue to follow and make further recommendations as appropriate. Guillermo Baker MD [facility] # [id number] BERTA
--- NOTE | 2018-07-25 12:30 | CP.PCM.PN ---
<Sudarshan Yo - Last Filed: 07/25/18 12:25> Subjective - Date & Time of Evaluation Date of Evaluation: 07/25/18 Time of Evaluation: 10:30 - Subjective Subjective: PGY6 GI Fellow Progress Note Patient seen and examined during HD today. The patient remains confused but answers questions when prompted. Denies any abdominal pain, nausea or vomiting at this time. Discussion with nursing staff revealed passage of small streak of blood tinged stool last night. was at bedside in patient's room and admits that patient seems more confused than usual in the weeks leading up to admission. 12 system ROS performed and negative except where stated Objective - Vital Signs/Intake and Output Vital Signs (last 24 hours): Temp Pulse Resp BP Pulse Ox 97.6 F 86 20 119/67 100 07/25/18 06:00 07/25/18 10:00 07/25/18 06:00 07/25/18 06:00 07/25/18 06:00 Intake and Output: 07/25/18 07/25/18 06:59 18:59 Intake Total 350 Output Total 0 Balance 350 - Medications Medications: Current Medications Acetaminophen (Tylenol 325mg Tab) 650 mg PO Q4H PRN PRN Reason: Fever >100.4 F Albumin Human (Albumin Human 25% (12.5 Gm/50 Ml)) 25 gm IV TTS PRN PRN Reason: Other Aspirin (Ecotrin) 81 mg PO DAILY [facility] Last Admin: 07/25/18 07:45 Dose: 81 mg Atorvastatin Calcium (Lipitor) 40 mg PO DAILY [facility] Last Admin: 07/25/18 07:46 Dose: 40 mg Calcitriol (Rocaltrol) 0.25 mcg PO DAILY [facility] Last Admin: 07/25/18 07:45 Dose: 0.25 mcg Carvedilol (Coreg) 12.5 mg PO BID [facility] Last Admin: 07/24/18 18:31 Dose: Not Given Darbepoetin Jaxon (Aranesp) 60 mcg IVP QWK [facility] Last Admin: 07/24/18 10:43 Dose: Not Given Heparin Sodium (Porcine) (Heparin) 5,000 units SC Q8H [facility]; Protocol Last Admin: 07/24/18 18:31 Dose: Not Given Cefepime HCl (Maxipime 1gm) 1 gm in 100 mls @ 100 mls/hr IVPB Q24H [facility]; Protocol Stop: 08/02/18 19:31 Last Admin: 07/24/18 20:17 Dose: 100 mls/hr Non-Formulary Medication (B Complex W-C No.20/Folic Acid [Nephrocaps Softgel]) 1 mg PO DAILY [facility] Last Admin: 07/24/18 10:54 Dose: Not Given Pioglitazone HCl (Actos) 15 mg PO DAILY [facility] Last Admin: 07/25/18 07:45 Dose: 15 mg Sevelamer HCl (Renagel) 800 mg PO AC [facility] Last Admin: 07/25/18 07:41 Dose: 800 mg - Labs Labs: 07/25/18 09:20 07/25/18 09:20 PT 20.9 SECONDS (9.4-12.5) H 07/24/18 00:00 INR 1.88 07/24/18 00:00 APTT 39.7 Seconds (26.9-38.3) H 07/24/18 00:00 - Constitutional Appears: No Acute Distress, Chronically Ill - Eye Exam Eye Exam: EOMI, PERRL - ENT Exam ENT Exam: Mucous Membranes Moist - Respiratory Exam Respiratory Exam: Decreased Breath Sounds, Rales. absent: Clear to Ausculation Bilateral, Rhonchi, Wheezes - GI/Abdominal Exam GI & Abdominal Exam: Distended, Firm, Tenderness (diffusely), Normal Bowel Sounds. absent: Guarding, Rigid, Soft, Mass, Organomegaly - Extremities Exam Additional comments: B/L lymphedema - Neurological Exam Neurological Exam: Altered, Awake - Psychiatric Exam Psychiatric exam: Normal Affect, Normal Mood - Skin Skin Exam: Dry, Warm Assessment and Plan - Assessment and Plan (Free Text) Assessment: Patient is a 77yo male with PMHx significant for ESRD on HD T//, PVD, HTN, systolic CHF with EF 20%, chronic anemia and suspected dementia who presented to the ED from [place] with complaint of bloody stool -Melena/Hematochezia -Ascites -Altered mental status - R/O metabolic vs hepatic causes -CHF -ESRD -PVD Plan: -Minimal bloody output per rectum noted by nursing staff -Continue to monitor H/H and optimize medically -Ideally optimize cardiopulmonary function for endoscopic intervention this week (EGD/Colonoscopy) -HD yesterday adn repeat session today -Ascites noted on imaging - request the assistance of IR for DX/TX paracentesis with fluid sent for: Culture, Cell count, Albumin, Total protein -Ascitic fluid analysis will assist in identifying etiology of ascites, suspect cardiac in nature given low EF -Check ammonia level given confusion and will consider use of Lactulose if suspicion for HE remains high; consider neurologic work up but will defer to primary team - metabolic causes in setting of ESRD vs hepatic encephalopathy co nsidered -Encourage supportive care with blood transfusion as necessary -Would hold Heparin in light of fresh blood per rectum -Will follow clinical course -Case discussed with patient's who is in agreement with current plan <Eusebio Han Y - Last Filed: 07/25/18 18:23> Objective - Vital Signs/Intake and Output Vital Signs (last 24 hours): Temp Pulse Resp BP Pulse Ox 97.3 F L 75 16 94/65 L 97 07/25/18 12:00 07/25/18 17:26 07/25/18 12:00 07/25/18 17:26 07/25/18 12:00 Intake and Output: 07/25/18 07/25/18 06:59 18:59 Intake Total 350 300 Output Total 0 3000 Balance 350 -2700 - Medications Medications: Current Medications Acetaminophen (Tylenol 325mg Tab) 650 mg PO Q4H PRN PRN Reason: Fever >100.4 F Albumin Human (Albumin Human 25% (12.5 Gm/50 Ml)) 25 gm IV TTS PRN PRN Reason: Other Aspirin (Ecotrin) 81 mg PO DAILY [facility] Last Admin: 07/25/18 07:45 Dose: 81 mg Atorvastatin Calcium (Lipitor) 40 mg PO DAILY [facility] Last Admin: 07/25/18 07:46 Dose: 40 mg Calcitriol (Rocaltrol) 0.25 mcg PO DAILY [facility] Last Admin: 07/25/18 07:45 Dose: 0.25 mcg Carvedilol (Coreg) 12.5 mg PO BID [facility] Last Admin: 07/25/18 17:26 Dose: Not Given Darbepoetin Jaxon (Aranesp) 60 mcg IVP QWK [facility] Last Admin: 07/24/18 10:43 Dose: Not Given Heparin Sodium (Porcine) (Heparin) 5,000 units SC Q8H [facility]; Protocol Last Admin: 07/24/18 18:31 Dose: Not Given Cefepime HCl (Maxipime 1gm) 1 gm in 100 mls @ 100 mls/hr IVPB Q24H [facility]; Protocol Stop: 08/02/18 19:31 Last Admin: 07/24/18 20:17 Dose: 100 mls/hr Non-Formulary Medication (B Complex W-C No.20/Folic Acid [Nephrocaps Softgel]) 1 mg PO DAILY [facility] Last Admin: 07/25/18 13:41 Dose: Not Given Sevelamer HCl (Renagel) 800 mg PO AC [facility] Last Admin: 07/25/18 13:42 Dose: Not Given Sitagliptin Phosphate (Januvia) 25 mg PO DAILY [facility] - Labs Labs: 07/25/18 09:20 07/25/18 09:20 PT 20.9 SECONDS (9.4-12.5) H 07/24/18 00:00 INR 1.88 07/24/18 00:00 APTT 39.7 Seconds (26.9-38.3) H 07/24/18 00:00 Attending/Attestation - Attestation I have fully participated in the care of the patient.: Yes I have reviewed all pertinent clinical information, including history, physical exam and plan: Yes Notes (Text): 07/25/18 18:20 ESRD on HD HTN CHF Anemia, rectal bleeding Pleural effusion - Liquid diet as tolerated - H/H stable, continue to monitor - Follow up nephrology and pulmonary recommendations - US results noted, non-sufficient ascitic fluid for paracentesis - Will continue to monitor patient clinical course and plan for endoscopic evaluation monday after medical optimization
--- NOTE | 2018-07-25 12:33 | CP.PCM.PCO ---
Additional Comments - Additional Comments Additional Comments: fluid overload, pleural effusion L>R, acites, GIB, possible EGD/Colonoscopy once stable, ID consulted patient with an episode of hypothermia.
--- NOTE | 2018-07-25 13:31 | PN ---
DATE: 07/25/2018 SUBJECTIVE: He ended up having 95 temperature last night warmer hugger to get him more warmed up. Also, the latest chest x-ray shows hazy infiltrate, bilateral effusion, vascular congestion. He is also weaker. PHYSICAL EXAMINATION: VITAL SIGNS: He has 97.6 temperature now, 90 pulse, 119/67 blood pressure, 20 respiratory rate, 100% O2 sat on room air. He is in and out of it mentally. HEENT: Head is atraumatic and normocephalic. HEART: Regular rate. LUNGS: Decreased breath sounds, but clear. ABDOMEN: Soft. EXTREMITIES: No edema. CURRENT MEDICATIONS: He is currently on Actos, albumin, Aranesp, vitamin B complex, Coreg, Ecotrin, heparin, Lipitor, Maxipime, Lipitor and Tylenol. LABORATORY DATA: He has 5 white count, 8.5 hemoglobin, 26.4 hematocrit with 193 platelets. Sodium 137, potassium 3.6, BUN is 23, creatinine 3.3 on dialysis, sugar is 100, calcium is 9, total bili is 0.6, AST is 19, ALT is 12, alk phos 117, total protein 6.8. ASSESSMENT AND PLAN: I change into inpatient due to 95 temperature and new infiltrate, and is weak. He is on IV antibiotics. He is also recovering from a gastrointestinal bleed. He has got some congestion in the lungs. He is going to be seen by Renal, GI for ascites, Pulmonary for pneumonia, Infectious Disease for hypothermia. Continue aggressive treatment and care. Nacho Hernández DO MTDD
[2018-07-25] MEDS: [UNRECOGNIZED DRUG - REMARK] PO SCH (13:41)
--- NOTE | 2018-07-25 14:29 | CP.PCM.CON ---
History of Present Illness - History of Present Illness History of Present Illness: Nephrology Consultation Note: Assessment: critical acute on chronic sys CHF with fluid overload/anasarca/ascites and pleural effusions GI bleed Hypertensive Chronic Kidney Disease (I12.0) End stage renal disease (N18.6) dependence on hemodialysis (Z99.2) (TTS) via AVF Anemia (D64.9), Hyperphosphatemia (E83.39), Secondary Hyperparathyroidism (E21.1), HTN (I12.0), PVD, CAD severe sys CHF, hx of AICD Plan: continue with HD per TTS. Continue with Nephrovite 1 tab/day. extra UF tomorrow PRBC as needed for anemia. on UMU with dialysis as last Hb <10 CHF optimization per cardiology continue with calcitriol BP control, usually on low side. hence, not on acei/arb Glycemic control, Dialysis consistent diet Further work up/management as per primary team Dose meds/antibiotics (if needed) for ESRD status. Avoid fleets enema/magnesium based laxatives. consider d/c actos in view of CHF GI eval Thanks for allowing me to participate in care of your patient. Will follow patient with you. Please call if any Qs. had d/w team Dr Kurt Martinez Office: [phone] CC; dark stool reason for consult: ESRD and fluid management HPI: Pt is a 77 M with hx of ESRD on hemodialysis (TTS) via AVF, last dialysis sat, chronic anemia, hyperphosphatemia, secondary hyperparathyroidism, PVD, CAD, hypertension severe sys CHF hx of AICD presented with complaints of blood on stool and dark stool Renal consult requested for ESRD management. pt on HD x 5 years he feels sick with fatigue and tiredness has some SOB as well ROS: Cardiovascular: No chest pain. Pulmonary: c/o shortness of breath Gastrointestinal: denies abdominal pain No nausea. No vomiting. Genitourinary: No pain while urinating. Denies blood in urine. not much UOP All other negative except as mentioned in HPI Physical Examination: General Appearance: uncomfortable, in no acute respiratory distress, co- operative . ill appearing Vitals reviewed and noted as below Head; Atraumatic, normocephalic ENT: no ulcers no thrush. Tongue is midline. Oropharynx: no rash or ulcers. EYES: Pupils are equal, round and reactive to light accommodation. Eye muscles and extraocular movement intact. Sclera is anicteric. Neck; supple no lymphadenopathy, no thyromegaly or bruit Lungs: Normal respiratory rate/effort. Breath sounds bilateral reduced at bases Heart: Normal rate. s1s2 normal. No rub or gallop. Extremities: 1+ edema. No varicose veins. chronic hyperpigmented stasis changes + Neurological: Patient is awake and oriented but intermittently sleepy. No focal deficit. Strength bilateral appropriate and equal Skin: Warm and dry. Normal turgor. No rash. Palpitation: Normal elasticity for age Abdomen: Abdomen is soft. Bowel sounds +. There is no abdominal tenderness, no guarding/rigidity or organomegaly Psych: limited insight, normal affect/mood MSK: no joint tenderness or swelling. Digits and nails normal, no deformity : kidney or bladder not palpable Access: AVF Labs/imaging reviewed. Past medical history, past surgical history, family history, social history, allergy reviewed and noted as below Family Hx: no hx of CKD. Non contributory Past Patient History - Infectious Disease Hx of Infectious Diseases: None - Past Social History Smoking Status: Unknown If Ever Smoked - CARDIAC Hx Hypertension: Yes Hx Peripheral Vascular Disease: Yes - PULMONARY Hx Respiratory Disorders: Yes Hx Asthma: Yes - NEUROLOGICAL Hx Dementia: Yes - HEENT Hx HEENT Problems: No - RENAL Hx Dialysis: Yes (T, TH,SAT) Hx Renal Failure: Yes (ESRD) - ENDOCRINE/METABOLIC Hx Diabetes Mellitus Type 2: Yes - HEMATOLOGICAL/ONCOLOGICAL Hx Blood Disorders: Yes Hx Anemia: Yes Hx Cancer: Yes (prostate with seed implants) - INTEGUMENTARY Hx Dermatological Problems: No - MUSCULOSKELETAL/RHEUMATOLOGICAL Hx Arthritis: Yes Hx Falls: No - GASTROINTESTINAL Hx Gastrointestinal Disorders: Yes Hx Gastroesophageal Reflux: Yes - GENITOURINARY/GYNECOLOGICAL Hx Genitourinary Disorders: Yes Hx Prostate Problems: Yes - PSYCHIATRIC Hx Emotional Abuse: No Hx Physical Abuse: No Hx Substance Use: No - SURGICAL HISTORY Hx Cardiac Catheterization: Yes Hx Coronary Stent: Yes Other/Comment: Defibrilator placement - ANESTHESIA Hx Anesthesia Reactions: No Hx Malignant Hyperthermia: No Meds Allergies/Adverse Reactions: Allergies Allergy/AdvReac Type Severity Reaction Status Date / Time No Known Allergies Allergy Verified 02/09/18 09:55 - Medications Medications: Current Medications Acetaminophen (Tylenol 325mg Tab) 650 mg PO Q4H PRN PRN Reason: Fever >100.4 F Albumin Human (Albumin Human 25% (12.5 Gm/50 Ml)) 25 gm IV TTS PRN PRN Reason: Other Aspirin (Ecotrin) 81 mg PO DAILY [facility] Last Admin: 07/24/18 10:50 Dose: 81 mg Atorvastatin Calcium (Lipitor) 40 mg PO DAILY [facility] Last Admin: 07/24/18 10:50 Dose: 40 mg Calcitriol (Rocaltrol) 0.25 mcg PO DAILY [facility] Last Admin: 07/24/18 10:50 Dose: 0.25 mcg Carvedilol (Coreg) 12.5 mg PO BID [facility] Last Admin: 07/24/18 10:00 Dose: Not Given Darbepoetin Jaxon (Aranesp) 60 mcg IVP QWK [facility] Last Admin: 07/24/18 10:43 Dose: Not Given Heparin Sodium (Porcine) (Heparin) 5,000 units SC Q8H [facility]; Protocol Last Admin: 07/24/18 10:56 Dose: Not Given Non-Formulary Medication (B Complex W-C No.20/Folic Acid [Nephrocaps Softgel]) 1 mg PO DAILY [facility] Last Admin: 07/24/18 10:54 Dose: Not Given Pioglitazone HCl (Actos) 15 mg PO DAILY [facility] Last Admin: 07/24/18 10:50 Dose: 15 mg Sevelamer HCl (Renagel) 800 mg PO AC [facility] Last Admin: 07/24/18 10:50 Dose: 800 mg Results - Vital Signs Recent Vital Signs: Last Vital Signs Temp 97.6 F 07/23/18 23:39 Pulse 77 07/24/18 06:05 Resp 16 07/24/18 08:33 BP 124/78 07/24/18 06:05 Pulse Ox 100 07/24/18 06:05 - Labs Result Diagrams: 07/25/18 09:20 07/25/18 09:20 Labs: Laboratory Results - last 24 hr 07/24/18 07/24/18 07/24/18 00:00 00:00 00:00 WBC RBC Hgb Hct MCV MCH MCHC RDW Plt Count MPV PT 20.9 H INR 1.88 APTT 39.7 H Sodium 134 Potassium 4.5 Chloride 96 L Carbon Dioxide 27 Anion Gap 15 BUN 41 H Creatinine 4.8 H Est GFR ( Amer) 14 Est GFR (Non-Af Amer) 12 Random Glucose 143 H Calcium 9.5 Total Bilirubin 0.6 AST 28 ALT 13 Alkaline Phosphatase 134 H Lactate Dehydrogenase 476 Total Creatine Kinase 42 Troponin I 0.02 D Total Protein 7.6 Albumin 3.5 Globulin 4.1 Albumin/Globulin Ratio 0.8 L Blood Type O POSITIVE Antibody Screen Negative BBK History Checked Patient has bt 07/24/18 07/24/18 00:00 09:00 WBC 6.4 RBC 3.24 L Hgb 9.0 L Hct 27.9 L MCV 86.1 D MCH 27.8 MCHC 32.3 RDW 18.5 H Plt Count 221 MPV 10.1 PT INR APTT Sodium 136 Potassium 4.2 Chloride 97 L Carbon Dioxide 27 Anion Gap 16 BUN 41 H Creatinine 5.4 H Est GFR ( Amer) 12 Est GFR (Non-Af Amer) 10 Random Glucose 125 H Calcium 9.6 Total Bilirubin 0.5 AST 18 ALT < 6 L Alkaline Phosphatase 124 Lactate Dehydrogenase Total Creatine Kinase Troponin I Total Protein 7.0 Albumin 3.3 Globulin 3.7 Albumin/Globulin Ratio 0.9 L Blood Type Antibody Screen BBK History Checked
--- NOTE | 2018-07-25 14:29 | CON ---
DATE: 07/25/2018 LOCATION: The patient was seen in Room 277. CHIEF COMPLAINT: GI bleed. REASON FOR CONSULTATION: The patient developed hypothermia. HISTORY OF PRESENT ILLNESS: This is a 77-year-old male who was from a fdc with a history of hypertension, diabetes, chronic renal failure, on hemodialysis; coronary artery disease, peripheral artery disease, prostate cancer, he has had a history of a left arm fistula, cardiac catheterization with a PCI, pacemaker, and prostate carcinoma, WITH NO KNOWN ALLERGIES, admitted with rectal bleeding. In the hospital, the patient was noted to have hypothermia and Infectious Disease Consultation was requested. REVIEW OF SYSTEMS: Reveals the patient denies any fevers, any chills, no nausea, no vomiting. There is bright red blood per rectum. There was some abdominal cramping, no shortness of breath, and no diarrhea. A 12-point review of systems is performed. PAST MEDICAL HISTORY: Significant for hypertension, diabetes, chronic renal failure, hemodialysis on Tuesdays, , and Saturdays; coronary artery disease, peripheral arterial disease, and prostate cancer. PAST SURGICAL HISTORY: Significant for left arm fistula, cardiac catheterization with PCI and a pacemaker, prostate CA. ALLERGIES: THE PATIENT HAS NO KNOWN ALLERGIES. HOME MEDICATIONS: Medications at home are reviewed at the fdc. PHYSICAL EXAMINATION: GENERAL: On exam, he is in bed, in no acute distress, nontoxic; however, weak. VITAL SIGNS: Temperature of 95.3, blood pressure is 119/60, respiratory rate of 20, and heart rate of 91. HEENT: Examination of HEENT is unremarkable. NECK: Supple. LUNGS: Have decreased breath sounds. HEART: Normal S1, S2. ABDOMEN: Soft, nontender. LABORATORY DATA: Laboratory examination reveals the patient's white count to be 5.6, hemoglobin of 8, platelets of 203. Coagulation is noted. Chemistries are reviewed, creatinine of 3.8, and microbiology is pending. The patient's chest x-ray is negative. CAT scan of the abdomen and pelvis is noted. ASSESSMENT AND PLAN: This is a 77-year-old male with SIRS (systemic inflammatory response syndrome) with gastrointestinal bleed, hypothermia, tachycardia, with acute systolic congestive heart failure on top of chronic congestive heart failure; must rule out healthcare-associated pneumonia, chest x-ray is negative. CAT scan is unremarkable. Empirically, we will give one dose of vancomycin and start the patient on Maxipime, pending pancultures, blood, urine, sputum, and MRSA screen. We will follow with you and make further recommendations. Socrates Maldonado MD [facility] # [id number]
--- NOTE | 2018-07-25 14:37 | CP.PCM.PN ---
Subjective - Date & Time of Evaluation Date of Evaluation: 07/25/18 Time of Evaluation: 14:36 - Subjective Subjective: Nephrology Consultation Note: Assessment: critical acute on chronic sys CHF with fluid overload/anasarca/ascites and pleural effusions GI bleed Hypertensive Chronic Kidney Disease (I12.0) End stage renal disease (N18.6) dependence on hemodialysis (Z99.2) (TTS) via AVF Anemia (D64.9), Hyperphosphatemia (E83.39), Secondary Hyperparathyroidism (E21.1), HTN (I12.0), PVD, CAD severe sys CHF, hx of AICD AMS Plan: continue with HD per TTS. Continue with Nephrovite 1 tab/day. extra UF today PRBC as needed for anemia. on UMU with dialysis as last Hb <10 CHF optimization per cardiology continue with calcitriol BP control, usually on low side. hence, not on acei/arb Glycemic control, Dialysis consistent diet Further work up/management as per primary team Dose meds/antibiotics (if needed) for ESRD status. Avoid fleets enema/magnesium based laxatives. d/c actos in view of CHF GI ID Cardiology following Thanks for allowing me to participate in care of your patient. Will follow patient with you. Please call if any Qs. had d/w team Dr Kurt Martinez Office: [phone] CC; dark stool reason for consult: ESRD and fluid management HPI: Pt is a 77 M with hx of ESRD on hemodialysis (TTS) via AVF, last dialysis sat, chronic anemia, hyperphosphatemia, secondary hyperparathyroidism, PVD, CAD, hypertension severe sys CHF hx of AICD presented with complaints of blood on stool and dark stool Renal consult requested for ESRD management. pt on HD x 5 years he feels sick with fatigue and tiredness has some SOB as well ROS: pt letahrgic and not able to provide hx. bedside Physical Examination: General Appearance: uncomfortable, in no acute respiratory distress, co- operative . ill appearing Vitals reviewed and noted as below Head; Atraumatic, normocephalic ENT: no ulcers no thrush. Tongue is midline. Oropharynx: no rash or ulcers. EYES: Pupils are equal, round and reactive to light accommodation. Eye muscles and extraocular movement intact. Sclera is anicteric. Neck; supple no lymphadenopathy, no thyromegaly or bruit Lungs: Normal respiratory rate/effort. Breath sounds bilateral reduced at bases Heart: Normal rate. s1s2 normal. No rub or gallop. Extremities: trace edema. No varicose veins. chronic hyperpigmented stasis changes + Neurological: Patient is lethargic Skin: Warm and dry. Normal turgor. No rash. Palpitation: Normal elasticity for age Abdomen: Abdomen is soft. Bowel sounds +. There is no abdominal tenderness, no guarding/rigidity or organomegaly Psych: limited insight, normal affect/mood MSK: no joint tenderness or swelling. Digits and nails normal, no deformity : kidney or bladder not palpable Access: AVF Labs/imaging reviewed. Past medical history, past surgical history, family history, social history, allergy reviewed and noted as below Family Hx: no hx of CKD. Non contributory Objective - Vital Signs/Intake and Output Vital Signs (last 24 hours): Temp Pulse Resp BP Pulse Ox 97.6 F 86 20 119/67 100 07/25/18 06:00 07/25/18 10:00 07/25/18 06:00 07/25/18 06:00 07/25/18 06:00 Intake and Output: 07/25/18 07/25/18 06:59 18:59 Intake Total 350 Output Total 0 Balance 350 - Medications Medications: Current Medications Acetaminophen (Tylenol 325mg Tab) 650 mg PO Q4H PRN PRN Reason: Fever >100.4 F Albumin Human (Albumin Human 25% (12.5 Gm/50 Ml)) 25 gm IV TTS PRN PRN Reason: Other Aspirin (Ecotrin) 81 mg PO DAILY [facility] Last Admin: 07/25/18 07:45 Dose: 81 mg Atorvastatin Calcium (Lipitor) 40 mg PO DAILY [facility] Last Admin: 07/25/18 07:46 Dose: 40 mg Calcitriol (Rocaltrol) 0.25 mcg PO DAILY [facility] Last Admin: 07/25/18 07:45 Dose: 0.25 mcg Carvedilol (Coreg) 12.5 mg PO BID [facility] Last Admin: 07/25/18 13:41 Dose: Not Given Darbepoetin Jaxon (Aranesp) 60 mcg IVP QWK [facility] Last Admin: 07/24/18 10:43 Dose: Not Given Heparin Sodium (Porcine) (Heparin) 5,000 units SC Q8H [facility]; Protocol Last Admin: 07/24/18 18:31 Dose: Not Given Cefepime HCl (Maxipime 1gm) 1 gm in 100 mls @ 100 mls/hr IVPB Q24H [facility]; Protocol Stop: 08/02/18 19:31 Last Admin: 07/24/18 20:17 Dose: 100 mls/hr Non-Formulary Medication (B Complex W-C No.20/Folic Acid [Nephrocaps Softgel]) 1 mg PO DAILY [facility] Last Admin: 07/25/18 13:41 Dose: Not Given Sevelamer HCl (Renagel) 800 mg PO AC [facility] Last Admin: 07/25/18 13:42 Dose: Not Given - Labs Labs: 07/25/18 09:20 07/25/18 09:20 PT 20.9 SECONDS (9.4-12.5) H 07/24/18 00:00 INR 1.88 07/24/18 00:00 APTT 39.7 Seconds (26.9-38.3) H 07/24/18 00:00
--- NOTE | 2018-07-25 17:45 | US ---
Date of service: 07/25/2018 PROCEDURE: Limited abdominal ultrasound HISTORY: ascites COMPARISON: July 24, 2018.. CT abdomen and pelvis. TECHNIQUE: Standard protocol for this study/examination. FINDINGS: Large volume ascites identified on recent CT scan not apparent on the current study. There is no history of recent paracentesis. IMPRESSION: No identifiable intra-abdominal fluid on this limited right upper quadrant ultrasound.
[2018-07-25] MEDS: Cefepime 1gm in NS 100ml 1 GM/100 ML BAG IVPB SCH (20:00)
--- NOTE | 2018-07-25 23:41 | CON ---
DATE: 07/25/2018 PULMONARY CONSULTATION We were asked by Dr. Hernández, Receiving Coordinator to evaluate and treat this 77-year-old male who was admitted to [facility] with diagnoses of congestive heart failure and pneumonia. HISTORY OF PRESENT ILLNESS: This is a 77-year-old male with a history of end-stage renal disease, ischemic heart disease, peripheral vascular disease and hypertension presented to emergency room department from residential for evaluation of lower GI bleed. He also noted to have low temperature, and dyspnea that prompted workup. PAST MEDICAL HISTORY: Positive for COPD, asthma, history of diabetes mellitus, history of renal failure on dialysis and gastrointestinal bleeding. FAMILY HISTORY: Negative for inherited diseases. SOCIAL HISTORY: He is a never smoker. No alcohol. No substance abuse. ALLERGIES: NO KNOWN ALLERGIES. MEDICATIONS: List was reviewed for MAR. REVIEW OF SYSTEMS: Conducted by reviewing all sources. Constitutional: Absent fevers. Respiratory: Complaints of shortness of breath. Cardiovascular: No complaints of chest pain. No palpitations. Gastrointestinal: As noted per HPI. Lower GI bleeding. The rest of the systems were reviewed and found to be negative. PHYSICAL EXAMINATION: VITAL SIGNS: His temperature 97.6, pulse 80, respirations are 18, blood pressure 140/70 and pulse oximetry is 99% on nasal cannula. HEENT: Head is normocephalic and atraumatic. NECK: Supple with no jugular vein distentions. CARDIOVASCULAR: S1 and S2. No S3, regular. PULMONARY: Diminished breath sounds at both bases with few rhonchi. No wheezing. GASTROINTESTINAL: Soft and nontender. No organomegaly. : Within normal limits EXTREMITIES: No pedal edema. No cyanosis. NEUROLOGIC: No focal deficits. SKIN: No acute skin rash. LABORATORY DATA: Chest x-ray was reported as decompensated congestive heart failure. I have reviewed the chest x-ray, which revealed moderate right pleural effusion and mild left pleural effusion. In addition to that there are bilateral congestive changes, moderate cardiomegaly. Today's blood work was reviewed. His WBC's are 5.6 and hemoglobin of 8.2. Sodium 136, BUN 26 and creatinine 3.8. His arterial blood gas pH of 734, pCO2 of 53 and pO2 of 96. Mild combined metabolic and respiratory disorder. ASSESSMENT: 1. Bilateral pleural effusions. 2. Congestive heart failure. 3. Chronic renal failure. 4. Rule out pneumonia. 5. Chronic obstructive pulmonary disease. 6. Carbon dioxide retention. PLAN: The patient was started on Rocephin which is appropriate. We will keep him on nasal cannula. He does not require noninvasive ventilation. At this time, his respiratory status is stable. His condition should improve with vigorous dialysis as well as intervenous antibiotics. We will follow closely. Cipriano Richard MD [facility]
[2018-07-26] MEDS: [UNRECOGNIZED DRUG - REMARK] PO SCH (09:20)
[2018-07-26 09:55] LABS: HEMOGLOBIN 8.1 g/dL (14.0-18.0); MEAN CORPUSCULAR HEMOGLOBIN 27.6 pg (25.0-35.0); MEAN CORPUSCULAR HGB CONC 31.8 g/dl (31.0-37.0); MEAN PLATELET VOLUME 10.1 fl (7.0-11.0); RBC 2.93 10^6/uL (3.5-6.1); RED CELL DISTRIBUTION WIDTH 18.2 % (11.5-14.5); WHITE BLOOD COUNT 4.7 10^3/uL (4.5-11.0)
[2018-07-26 10:08] LABS: ALB/GLOB RATIO 0.8 (1.1-1.8); ALBUMIN 3.1 g/dL (3.0-4.8); CALCIUM 9.5 mg/dL (8.4-10.5)
[2018-07-26] MEDS: Darbepoetin Alfa 60 mcg/ml Inj IVP SCH (10:19)
--- NOTE | 2018-07-26 10:28 | PN ---
DATE: 07/26/2018 SUBJECTIVE: The patient remains on the floor awaiting hemodialysis. The patient is hypothermic and the staff is working on him prior to sending him to dialysis. He is in no acute respiratory distress at this time. He is being treated for congestive heart failure and pneumonia. OBJECTIVE: VITAL SIGNS: Remain stable. The patient is afebrile. Respiratory rate 20, blood pressure 120/70, O2 sat 99% on nasal cannula. HEENT: Normocephalic, atraumatic. NECK: Supple. No JVD. CARDIOVASCULAR: Regular rhythm without murmur, gallop or rub. CHEST: Global decrease in breath sounds. Minimal rhonchi. No wheezing appreciated. GASTROINTESTINAL: Soft. Bowel sounds normoactive. : Within normal limits EXTREMITIES: Reveal no clubbing, cyanosis or edema. No evidence of DVT. NEUROLOGIC EXAMINATION: No focal deficits. The patient is obtunded. SKIN: Dry; intact LABORATORY DATA: Reviewed. Chest x-ray with significant pulmonary vascular congestion and pleural effusions, bilateral compressive atelectasis suspected, cardiomegaly noted. ASSESSMENT: 1. Renal insufficiency. 2. Renal failure. 3. Congestive heart failure. 4. Bilateral pleural effusions. 5. Rule out pneumonia. 6. Chronic obstructive pulmonary disease. 7. Carbon dioxide retention. PLAN: Continue vigorous antibiotics and supplemental therapy. Code status to be discussed with Dr. Hernández. At the present time, hemodialysis is pending. The patient will go in the immediate future. We will follow closely with you and decide on the need for further intervention based on his subsequent status. Thank you for the opportunity to care for this gentleman. Herrera Covarrubias MD [facility]
--- NOTE | 2018-07-26 10:54 | CP.PCM.PN ---
Subjective - Date & Time of Evaluation Date of Evaluation: 07/26/18 Time of Evaluation: 10:53 - Subjective Subjective: Nephrology Consultation Note: Assessment: critical acute on chronic sys CHF with fluid overload/anasarca/ascites and pleural effusions GI bleed Hypertensive Chronic Kidney Disease (I12.0) End stage renal disease (N18.6) dependence on hemodialysis (Z99.2) (TTS) via AVF Anemia (D64.9), Hyperphosphatemia (E83.39), Secondary Hyperparathyroidism (E21.1), HTN (I12.0), PVD, CAD severe sys CHF, hx of AICD AMS Hypothermia Plan: continue with HD per TTS. Continue with Nephrovite 1 tab/day. extra UF tomorrow PRBC as needed for anemia. on UMU with dialysis as last Hb <10 CHF optimization per cardiology continue with calcitriol BP control, usually on low side. hence, not on acei/arb Glycemic control, Dialysis consistent diet Further work up/management as per primary team Dose meds/antibiotics (if needed) for ESRD status. Avoid fleets enema/magnesium based laxatives. d/c actos in view of CHF. added januvia 25 mg/d GI ID eval Thanks for allowing me to participate in care of your patient. Will follow patient with you. Please call if any Qs. had d/w team Dr Kurt Martinez Office: [phone] CC; dark stool reason for consult: ESRD and fluid management HPI: Pt is a 77 M with hx of ESRD on hemodialysis (TTS) via AVF, last dialysis sat, chronic anemia, hyperphosphatemia, secondary hyperparathyroidism, PVD, CAD, hypertension severe sys CHF hx of AICD presented with complaints of blood on sto ol and dark stool Renal consult requested for ESRD management. pt on HD x 5 years he feels sick with fatigue and tiredness has some SOB as well ROS: unable to obtain from pt. Physical Examination: seen at HD General Appearance: comfortable, in no acute respiratory distress, co-operative . ill appearing Vitals reviewed and noted as below Head; Atraumatic, normocephalic ENT: no ulcers no thrush. Tongue is midline. Oropharynx: no rash or ulcers. EYES: Pupils are equal, round and reactive to light accommodation. Eye muscles and extraocular movement intact. Sclera is anicteric. Neck; supple no lymphadenopathy, no thyromegaly or bruit Lungs: Normal respiratory rate/effort. Breath sounds bilateral reduced at bases Heart: Normal rate. s1s2 normal. No rub or gallop. Extremities: has thigh edema. No varicose veins. chronic hyperpigmented stasis changes + Neurological: Patient is awake and confused Skin: Warm and dry. Normal turgor. No rash. Palpitation: Normal elasticity for age Abdomen: Abdomen is soft. Bowel sounds +. There is no abdominal tenderness, no guarding/rigidity or organomegaly Psych: limited insight, normal affect/mood MSK: no joint tenderness or swelling. Digits and nails normal, no deformity : kidney or bladder not palpable Access: AVF Labs/imaging reviewed. Past medical history, past surgical history, family history, social history, allergy reviewed and noted as below Family Hx: no hx of CKD. Non contributory Objective - Vital Signs/Intake and Output Vital Signs (last 24 hours): Temp Pulse Resp BP Pulse Ox 96.9 F L 78 15 114/57 L 97 07/26/18 09:01 07/26/18 08:20 07/26/18 08:20 07/26/18 08:20 07/26/18 08:20 Intake and Output: 07/26/18 07/26/18 06:59 18:59 Intake Total 720 Output Total 2 Balance 718 - Medications Medications: Current Medications Acetaminophen (Tylenol 325mg Tab) 650 mg PO Q4H PRN PRN Reason: Fever >100.4 F Albumin Human (Albumin Human 25% (12.5 Gm/50 Ml)) 25 gm IV TTS PRN PRN Reason: Other Aspirin (Ecotrin) 81 mg PO DAILY [facility] Last Admin: 07/26/18 09:21 Dose: Not Given Atorvastatin Calcium (Lipitor) 40 mg PO DAILY [facility] Last Admin: 07/26/18 09:21 Dose: Not Given Calcitriol (Rocaltrol) 0.25 mcg PO DAILY [facility] Last Admin: 07/26/18 09:28 Dose: Not Given Carvedilol (Coreg) 12.5 mg PO BID [facility] Last Admin: 07/26/18 09:20 Dose: Not Given Darbepoetin Jaxon (Aranesp) 60 mcg IVP QWK [facility] Last Admin: 07/26/18 10:19 Dose: 60 mcg Heparin Sodium (Porcine) (Heparin) 5,000 units SC Q8H [facility]; Protocol Last Admin: 07/24/18 18:31 Dose: Not Given Cefepime HCl (Maxipime 1gm) 1 gm in 100 mls @ 100 mls/hr IVPB Q24H [facility]; Protocol Stop: 08/02/18 19:31 Last Admin: 07/25/18 20:00 Dose: 100 mls/hr Non-Formulary Medication (B Complex W-C No.20/Folic Acid [Nephrocaps Softgel]) 1 mg PO DAILY [facility] Last Admin: 07/26/18 09:20 Dose: Not Given Sevelamer HCl (Renagel) 800 mg PO AC [facility] Last Admin: 07/26/18 08:34 Dose: Not Given Sitagliptin Phosphate (Januvia) 25 mg PO DAILY [facility] Last Admin: 07/26/18 09:21 Dose: Not Given - Labs Labs: 07/26/18 09:30 07/26/18 09:30 PT 20.9 SECONDS (9.4-12.5) H 07/24/18 00:00 INR 1.88 07/24/18 00:00 APTT 39.7 Seconds (26.9-38.3) H 07/24/18 00:00
--- NOTE | 2018-07-26 13:57 | CP.PCM.PCO ---
Physician Communication Note - Physician Communication Note Physician Communication Note: possible EGD Fri.
--- NOTE | 2018-07-26 14:08 | PN ---
DATE: 07/26/2018 SUBJECTIVE: He is resting comfortably in bed. He is in and out of it mentally. He can move all four extremities. Physical therapy suggested that he should go to [facility] again. He does stay at [facility]. PHYSICAL EXAMINATION: GENERAL: He is a little bit lethargic. VITAL SIGNS: He has 96.5 temperature, 78 pulse, 114/57 blood pressure, 15 respiratory rate, 97% O2 sat on nasal cannula. HEENT: Head is atraumatic and normocephalic. HEART: Regular rate. LUNGS: Decreased breath sounds. ABDOMEN: Soft. EXTREMITIES: Has some ulcers but the healing is fairly well. No edema. MEDICATIONS: He is currently on albumin, Aranesp, vitamin B complex, Coreg, Ecotrin, heparin, Januvia, Lipitor, Maxipime, Renagel, Glucotrol and Tylenol. LABORATORY DATA: He has a 136 sodium, potassium 3.9, 26 BUN, 3.8 creatinine on dialysis. Sugar last one was 90. Calcium is 9.3, total bili is 0.5, AST is 18, ALT is 9, alk phos is 106. Ammonia is 33. He has a white count of 5.6, hemoglobin 8.2, if it drops below 7 we will transfuse him. Hematocrit is 25.9, platelets of 203. Micro so far, blood was negative. ASSESSMENT AND PLAN: He is being seen by Renal, Pulmonary. Infectious Disease, GI. He is on IV antibiotics. Physical therapy stated he needed to go to subacute rehabilitation. My plan will be to get him to subacute rehabilitation back at [facility]. I need recommendations from Speech about increasing his diet and from GI, he is only on a liquid diet right now, we are checking his labs and plan will be subacute rehabilitation hoping at [facility] medically. He has systemic inflammatory response syndrome, gastrointestinal bleed, end-stage renal disease, congestive heart failure, possible pneumonia. Nacho Hernández DO MTDD
--- NOTE | 2018-07-26 14:27 | CP.PCM.PN ---
<Sudarshan Yo - Last Filed: 07/26/18 14:24> Subjective - Date & Time of Evaluation Date of Evaluation: 07/26/18 Time of Evaluation: 08:10 - Subjective Subjective: PGY6 GI Fellow Progress Note Patient seen and examined bedside this morning. The patient is seen bedside during dialysis. He is confused again today and unable to answer most questions. He denies any pain at this time. 12 system ROS limited given altered mentation Objective - Vital Signs/Intake and Output Vital Signs (last 24 hours): Temp Pulse Resp BP Pulse Ox 96.9 F L 82 15 114/57 L 97 07/26/18 09:01 07/26/18 10:00 07/26/18 08:20 07/26/18 08:20 07/26/18 08:20 Intake and Output: 07/26/18 07/26/18 06:59 18:59 Intake Total 720 Output Total 2 Balance 718 - Medications Medications: Current Medications Acetaminophen (Tylenol 325mg Tab) 650 mg PO Q4H PRN PRN Reason: Fever >100.4 F Albumin Human (Albumin Human 25% (12.5 Gm/50 Ml)) 25 gm IV TTS PRN PRN Reason: Other Aspirin (Ecotrin) 81 mg PO DAILY [facility] Last Admin: 07/26/18 09:21 Dose: Not Given Atorvastatin Calcium (Lipitor) 40 mg PO DAILY [facility] Last Admin: 07/26/18 09:21 Dose: Not Given Calcitriol (Rocaltrol) 0.25 mcg PO DAILY [facility] Last Admin: 07/26/18 09:28 Dose: Not Given Carvedilol (Coreg) 12.5 mg PO BID [facility] Last Admin: 07/26/18 09:20 Dose: Not Given Darbepoetin Jaxon (Aranesp) 60 mcg IVP QWK [facility] Last Admin: 07/26/18 10:19 Dose: 60 mcg Heparin Sodium (Porcine) (Heparin) 5,000 units SC Q8H [facility]; Protocol Last Admin: 07/24/18 18:31 Dose: Not Given Cefepime HCl (Maxipime 1gm) 1 gm in 100 mls @ 100 mls/hr IVPB Q24H [facility]; Protocol Stop: 08/02/18 19:31 Last Admin: 07/25/18 20:00 Dose: 100 mls/hr Non-Formulary Medication (B Complex W-C No.20/Folic Acid [Nephrocaps Softgel]) 1 mg PO DAILY [facility] Last Admin: 07/26/18 09:20 Dose: Not Given Sevelamer HCl (Renagel) 800 mg PO AC [facility] Last Admin: 07/26/18 12:40 Dose: Not Given Sitagliptin Phosphate (Januvia) 25 mg PO DAILY [facility] Last Admin: 07/26/18 09:21 Dose: Not Given - Labs Labs: 07/26/18 09:30 07/26/18 09:30 PT 20.9 SECONDS (9.4-12.5) H 07/24/18 00:00 INR 1.88 07/24/18 00:00 APTT 39.7 Seconds (26.9-38.3) H 07/24/18 00:00 - Constitutional Appears: No Acute Distress, Chronically Ill - Eye Exam Eye Exam: EOMI, PERRL - ENT Exam ENT Exam: Mucous Membranes Moist - Respiratory Exam Respiratory Exam: Decreased Breath Sounds, Rales. absent: Clear to Ausculation Bilateral, Rhonchi, Wheezes - Cardiovascular Exam Cardiovascular Exam: RRR, +S1, +S2 - GI/Abdominal Exam GI & Abdominal Exam: Soft, Normal Bowel Sounds. absent: Distended, Firm, Guarding, Rigid, Tenderness, Organomegaly - Extremities Exam Extremities Exam: Normal Inspection. absent: Pedal Edema - Neurological Exam Neurological Exam: Altered, Awake - Psychiatric Exam Psychiatric exam: Flat Affect - Skin Skin Exam: Dry, Warm Assessment and Plan - Assessment and Plan (Free Text) Assessment: Patient is a 77yo male with PMHx significant for ESRD on HD T//, PVD, HTN, systolic CHF with EF 20%, chronic anemia and suspected dementia who presented to the ED from [place] with complaint of bloody stool -Melena/Hematochezia -Ascites -Altered mental status -CHF -ESRD -PVD Plan: -No further bloody stool per nursing team -H/H stable -Patient remains confused - encourage neurologic evaluation for AMS -Ammonia level was WNL -Not enough ascites for paracentesis -Continue to medically optimize patient -Will give bowel prep today with Dulcolax/Nulytely and plan for EGD/Colonoscopy tomorrow pending consent from patient's -NPO past MN <Eusebio Han Y - Last Filed: 07/26/18 15:36> Objective - Vital Signs/Intake and Output Vital Signs (last 24 hours): Temp Pulse Resp BP Pulse Ox 98.4 F 90 18 123/46 L 100 07/26/18 14:44 07/26/18 14:44 07/26/18 14:44 07/26/18 14:44 07/26/18 14:44 Intake and Output: 07/26/18 07/26/18 06:59 18:59 Intake Total 720 Output Total 2 Balance 718 - Medications Medications: Current Medications Acetaminophen (Tylenol 325mg Tab) 650 mg PO Q4H PRN PRN Reason: Fever >100.4 F Albumin Human (Albumin Human 25% (12.5 Gm/50 Ml)) 25 gm IV TTS PRN PRN Reason: Other Aspirin (Ecotrin) 81 mg PO DAILY [facility] Last Admin: 07/26/18 09:21 Dose: Not Given Atorvastatin Calcium (Lipitor) 40 mg PO DAILY [facility] Last Admin: 07/26/18 09:21 Dose: Not Given Calcitriol (Rocaltrol) 0.25 mcg PO DAILY [facility] Last Admin: 07/26/18 09:28 Dose: Not Given Carvedilol (Coreg) 12.5 mg PO BID [facility] Last Admin: 07/26/18 09:20 Dose: Not Given Darbepoetin Jaxon (Aranesp) 60 mcg IVP QWK [facility] Last Admin: 07/26/18 10:19 Dose: 60 mcg Heparin Sodium (Porcine) (Heparin) 5,000 units SC Q8H [facility]; Protocol Last Admin: 07/24/18 18:31 Dose: Not Given Cefepime HCl (Maxipime 1gm) 1 gm in 100 mls @ 100 mls/hr IVPB Q24H [facility]; Protocol Stop: 08/02/18 19:31 Last Admin: 07/25/18 20:00 Dose: 100 mls/hr Non-Formulary Medication (B Complex W-C No.20/Folic Acid [Nephrocaps Softgel]) 1 mg PO DAILY [facility] Last Admin: 07/26/18 09:20 Dose: Not Given Pantoprazole Sodium (Protonix Inj) 40 mg IVP DAILY [facility] Sevelamer HCl (Renagel) 800 mg PO [facility] Last Admin: 07/26/18 12:40 Dose: Not Given Sitagliptin Phosphate (Januvia) 25 mg PO DAILY [facility] Last Admin: 07/26/18 09:21 Dose: Not Given - Labs Labs: 07/26/18 09:30 07/26/18 09:30 PT 20.9 SECONDS (9.4-12.5) H 07/24/18 00:00 INR 1.88 07/24/18 00:00 APTT 39.7 Seconds (26.9-38.3) H 07/24/18 00:00 Attending/Attestation - Attestation I have fully participated in the care of the patient.: Yes I have reviewed all pertinent clinical information, including history, physical exam and plan: Yes Notes (Text): 07/26/18 15:34 ESRD on HD CHF HTN Dementia Anemia, rectal bleeding - Liquid diet as tolerated - H/H stable, continue to monitor - Continue with PPI therapy - Pulmonary note reviewed, stable with current treatment - Follow up nephrology recommendations - Will plan for EGD/colonoscopy tomorrow if patient is willing to comply with bowel regimen and proper informed consent obtained through family member
[2018-07-26] MEDS ORDERED: Bisacodyl 5mg EC Tab PO ONE ×2 (14:30→19:00)
[2018-07-26] MEDS ORDERED: NuLYTELY (NACL/NAHCO3/KCL/PEG) 4L PO ONE (14:30)
[2018-07-26] MEDS: Cefepime 1gm in NS 100ml 1 GM/100 ML BAG IVPB SCH (20:00)
--- NOTE | 2018-07-26 20:51 | PN ---
DATE: 07/26/2018 SUBJECTIVE: The patient is seen earlier today in room 277, bed 1. No fevers, no chills. The patient did have hypothermia with a temperature of 95 which is improved now. PHYSICAL EXAMINATION: VITAL SIGNS: The patient's temperature is 98, blood pressure is 120/40, respiratory rate of 18, heart rate of 90. HEENT: Unremarkable. NECK: Supple. LUNGS: Have decreased breath sounds. HEART: Normal S1, S2. ABDOMEN: Soft. LABORATORY DATA: Reveals a white count of 4.7, a hemoglobin of 8.1, platelets of 194. Chemistries reveal a BUN of 32, creatinine of 4.7 and microbiology reveals the blood cultures are negative. MRSA is not detected. ASSESSMENT AND PLAN: A 77-year-old male with systemic inflammatory response syndrome, gastrointestinal bleeding, hypothermia, tachycardia, acute systolic congestive heart failure on top of chronic congestive heart failure. The patient was given intermittent vancomycin and Maxipime. The patient had an ultrasound of the abdomen with no significant findings, and microbiology as stated negative blood cultures and methicillin-resistant Staphylococcus aureus screen is not detected. We will check on the final results. Dr. Han's note is reviewed. Rectal bleeding, plan is for an endoscopy and colonoscopy. Review of orders reveals the patient's cefepime to be active. We will follow closely with you and check on final culture results. Socrates Maldonado MD
[2018-07-27 07:53] LABS: HEMOGLOBIN 8.4 g/dL (14.0-18.0); MEAN CORPUSCULAR HEMOGLOBIN 27.4 pg (25.0-35.0); MEAN CORPUSCULAR HGB CONC 31.5 g/dl (31.0-37.0); MEAN PLATELET VOLUME 9.5 fl (7.0-11.0); RBC 3.07 10^6/uL (3.5-6.1); RED CELL DISTRIBUTION WIDTH 18.7 % (11.5-14.5); WHITE BLOOD COUNT 5.3 10^3/uL (4.5-11.0)
[2018-07-27 08:28] LABS: ALB/GLOB RATIO 0.8 (1.1-1.8); ALBUMIN 3.3 g/dL (3.0-4.8); CALCIUM 9.4 mg/dL (8.4-10.5)
[2018-07-27 08:49] LABS: INR 1.91; PROTHROMBIN TIME 21.6 SECONDS (9.4-12.5)
[2018-07-27] MEDS: [UNRECOGNIZED DRUG - REMARK] PO SCH (09:05)
[2018-07-27] MEDS ORDERED: Midazolam 2 MG/2 ML VIAL ONE (10:37)
[2018-07-27] MEDS ORDERED: Etomidate 20 mg/10ml Inj IV ONE (10:37)
[2018-07-27] MEDS ORDERED: Phenylephrine 10 mg/ml Inj ONE (10:48)
[2018-07-27] MEDS ORDERED: ePHEDrine 50 mg/ml Inj ONE (10:51)
--- NOTE | 2018-07-27 11:28 | PN ---
DATE: 07/27/2018 PULMONARY PROGRESS NOTE SUBJECTIVE: The patient was seen and examined at bedside. He is on dialysis. He is receiving intravenous cefepime and currently afebrile. PHYSICAL EXAMINATION: VITAL SIGNS: Temperature 97.8, pulse 78, respirations 20, pulse oximetry is 100 on nasal cannula, blood pressure is 112/76. HEENT: Head normocephalic and atraumatic. NECK: Supple with no jugular vein distention. CARDIOVASCULAR: S1, S2. No S3. Regular. PULMONARY: Diminished breath sounds at both bases with few rhonchi. No wheezing. GASTROINTESTINAL: Soft, nontender. No organomegaly. EXTREMITIES: No pedal edema. No cyanosis. NEUROLOGIC: Oriented to the present time. SKIN: No acute skin rash. LABORATORY DATA: Reviewed today's blood work. Sodium 136, potassium 3.7, creatinine 3.4. WBC 5.3, hemoglobin 8.4. His INR is 1.91. ASSESSMENT: 1. Bilateral pleural effusions. 2. Congestive heart failure. 3. Renal failure. 4. Rule out pneumonia. 5. Chronic obstructive pulmonary disease. 6. Carbon dioxide retention. PLAN: The patient is improving in terms of pulmonary status. His oxygen saturation is normal on nasal cannula. So, there is a mild increase in alveolar arterial oxygen gradient. He was admitted for his gastrointestinal bleeding, which is now controlled as well as systemic inflammatory response. Therefore, he is on current antibiotics. Endoscopy and colonoscopy were planned. His pulmonary status is stable on current nebulizer treatment. Cipriano Richard MD
[2018-07-27] MEDS ORDERED: Sodium Chloride 0.9% 1,000 ML IV SCH (11:30)
--- NOTE | 2018-07-27 13:01 | CP.PCM.PN ---
Subjective - Date & Time of Evaluation Date of Evaluation: 07/27/18 Time of Evaluation: 12:58 - Subjective Subjective: Nephrology Consultation Note: Assessment: critical acute on chronic sys CHF with fluid overload/anasarca/ascites and pleural effusions GI bleed with gastritis and rectal ulcer 07/27/18 Hypertensive Chronic Kidney Disease (I12.0) End stage renal disease (N18.6) dependence on hemodialysis (Z99.2) (TTS) via AVF Anemia (D64.9), Hyperphosphatemia (E83.39), Secondary Hyperparathyroidism (E21.1), HTN (I12.0), PVD, CAD severe sys CHF, hx of AICD AMS Hypothermia Plan: continue with HD per TTS. Continue with Nephrovite 1 tab/day. extra UF today. volume status better clinically. CXR in AM PRBC as needed for anemia. on UMU with dialysis as last Hb <10 CHF optimization per cardiology continue with calcitriol BP control, usually on low side. hence, not on acei/arb Glycemic control, Dialysis consistent diet Further work up/management as per primary team Dose meds/antibiotics (if needed) for ESRD status. Avoid fleets enema/magnesium based laxatives. d/c actos in view of CHF. added januvia 25 mg/d GI ID eval ongoing AMS work up and management as per primary team. overall, pt still ill appearing and need further improvement before d/c plans. Thanks for allowing me to participate in care of your patient. Will follow patient with you. Please call if any Qs. had d/w team Dr Kurt Martinez Office: [phone] CC; dark stool reason for consult: ESRD and fluid management HPI: Pt is a 77 M with hx of ESRD on hemodialysis (TTS) via AVF, last dialysis sat, chronic anemia, hyperphosphatemia, secondary hyperparathyroidism, PVD, CAD, hypertension severe sys CHF hx of AICD presented with complaints of blood on stool and dark stool Renal consult requested for ESRD management. pt on HD x 5 years he feels sick with fatigue and tiredness has some SOB as well ROS: unable to obtain from pt. pt s/p endoscopic eval Physical Examination: General Appearance: uncomfortable, in no acute respiratory distress, co- operative . ill appearing Vitals reviewed and noted as below Head; Atraumatic, normocephalic ENT: no ulcers no thrush. Tongue is midline. Oropharynx: no rash or ulcers. EYES: Pupils are equal, round and reactive to light accommodation. Eye muscles and extraocular movement intact. Sclera is anicteric. Neck; supple no lymphadenopathy, no thyromegaly or bruit Lungs: Normal respiratory rate/effort. Breath sounds bilateral reduced at bases Heart: Normal rate. s1s2 normal. No rub or gallop. Extremities: has thigh edema but better. No varicose veins. chronic hyperpigmented stasis changes + Neurological: Patient is confused lethargic and non-communicative Skin: Warm and dry. Normal turgor. No rash. Palpitation: Normal elasticity for age Abdomen: Abdomen is soft. Bowel sounds +. There is no abdominal tenderness, no guarding/rigidity or organomegaly Psych:unable MSK: no joint tenderness or swelling. Digits and nails normal, no deformity : kidney or bladder not palpable Access: AVF Labs/imaging reviewed. Past medical history, past surgical history, family history, social history, allergy reviewed and noted as below Family Hx: no hx of CKD. Non contributory Objective - Vital Signs/Intake and Output Vital Signs (last 24 hours): Temp Pulse Resp BP Pulse Ox 97.8 F 76 15 94/51 L 99 07/27/18 12:10 07/27/18 12:56 07/27/18 12:56 07/27/18 12:56 07/27/18 12:10 Intake and Output: 07/27/18 07/27/18 06:59 18:59 Intake Total 0 Balance 0 - Medications Medications: Current Medications Acetaminophen (Tylenol 325mg Tab) 650 mg PO Q4H PRN PRN Reason: Fever >100.4 F Last Admin: 07/26/18 23:51 Dose: 650 mg Albumin Human (Albumin Human 25% (12.5 Gm/50 Ml)) 25 gm IV TTS PRN PRN Reason: Other Aspirin (Ecotrin) 81 mg PO DAILY [facility] Last Admin: 07/27/18 09:05 Dose: Not Given Atorvastatin Calcium (Lipitor) 40 mg PO DAILY [facility] Last Admin: 07/27/18 09:06 Dose: Not Given Calcitriol (Rocaltrol) 0.25 mcg PO DAILY [facility] Last Admin: 07/27/18 09:06 Dose: Not Given Carvedilol (Coreg) 12.5 mg PO BID [facility] Last Admin: 07/27/18 09:05 Dose: Not Given Darbepoetin Jaxon (Aranesp) 60 mcg IVP QWK [facility] Last Admin: 07/26/18 10:19 Dose: 60 mcg Docusate Sodium (Colace) 100 mg PO BID [facility] Heparin Sodium (Porcine) (Heparin) 5,000 units SC Q8H [facility]; Protocol Last Admin: 07/24/18 18:31 Dose: Not Given Cefepime HCl (Maxipime 1gm) 1 gm in 100 mls @ 100 mls/hr IVPB Q24H [facility]; Protocol Stop: 08/02/18 19:31 Last Admin: 07/26/18 20:00 Dose: 100 mls/hr Sodium Chloride (Sodium Chloride 0.9%) 1,000 mls @ 100 mls/hr IV .Q10H [facility] Stop: 07/27/18 13:18 Non-Formulary Medication (B Complex W-C No.20/Folic Acid [Nephrocaps Softgel]) 1 mg PO DAILY [facility] Last Admin: 07/27/18 09:05 Dose: Not Given Pantoprazole Sodium (Protonix Inj) 40 mg IVP DAILY [facility] Last Admin: 07/27/18 09:06 Dose: Not Given Polyethylene Glycol (Miralax) 17 gm PO HS [facility] Sevelamer HCl (Renagel) 800 mg PO AC [facility] Last Admin: 07/27/18 11:05 Dose: Not Given Sitagliptin Phosphate (Januvia) 25 mg PO DAILY [facility] Last Admin: 07/27/18 09:05 Dose: Not Given - Labs Labs: 07/27/18 07:40 07/27/18 07:40 PT 21.6 SECONDS (9.4-12.5) H 07/27/18 08:30 INR 1.91 07/27/18 08:30 APTT 39.7 Seconds (26.9-38.3) H 07/24/18 00:00
--- NOTE | 2018-07-27 13:44 | CP.PCM.PCO ---
Physician Communication Note - Physician Communication Note Physician Communication Note: neurology consult pending, repeat labs in am, advance diet as tolerated
--- NOTE | 2018-07-27 13:56 | PN ---
DATE: 07/27/2018 SUBJECTIVE: I saw him in dialysis. He is resting comfortably. He is actually much more alert today than the other day. He is feeling better. He is actually eating a little bit better. PHYSICAL EXAMINATION: GENERAL: Eyes wide open, talking to me, alert, eating a little bit. VITAL SIGNS: Temperature 97.6, pulse 78, blood pressure 112/46, respiratory rate 20, 100% O2 sat. HEAD: Atraumatic and normocephalic. HEART: Regular rate. LUNGS: Decreased breath sounds, but clear. ABDOMEN: Soft. EXTREMITIES: No edema. SKIN: He has some skin ulcers with bandages. LABORATORY DATA: White count 5.3, hemoglobin 8.4, hematocrit 26.7 with platelets 203. INR is 1.91. Sodium 136, potassium 3.7, BUN 70, creatinine 3.4, GFR is 18, sugar 68, calcium 9.4, total bili is 0.6. AST is 22, ALT is 12, alk phos 123, total protein 7.2. ASSESSMENT AND PLAN: He is being seen by Infectious Disease, GI, Renal. He has systemic inflammatory response syndrome, gastrointestinal bleeding. He is on vancomycin, Maxipime. Blood cultures, methicillin-resistant Staph aureus was not detected. There was a plan for an endoscopy and colonoscopy with Gastroenterology. Continue with aggressive treatment and care on William and when I can, I will get him back to [facility]. Hopefully, we could do the upper and lower gastrointestinal treatment today. Nacho Hernández DO
--- NOTE | 2018-07-27 14:52 | RAD ---
Date of service: 07/27/2018 HISTORY: CHF follow up COMPARISON: 07/24/2018 TECHNIQUE: 1 view obtained. FINDINGS: LUNGS: Bibasilar infiltrates and effusions. PLEURA: Large bilateral pleural effusions CARDIOVASCULAR: No aortic atherosclerotic calcification present. Normal cardiac size. No pulmonary vascular congestion. OSSEOUS STRUCTURES: No significant abnormalities. VISUALIZED UPPER ABDOMEN: Normal. OTHER FINDINGS: None. IMPRESSION: Large bilateral pleural effusions
--- NOTE | 2018-07-27 18:20 | PN ---
DATE: 07/27/2018 SUBJECTIVE: The patient is seen earlier today in room 277, bed 1. PHYSICAL EXAMINATION: VITAL SIGNS: Temperature is 98, blood pressure is 108/50, respiratory rate of 18. HEENT: Unremarkable. NECK: Supple. LUNGS: Have decreased breath sounds. HEART: Normal S1, S2. ABDOMEN: Soft and nontender. LABORATORY DATA: Reveals a white count of 5.3, hemoglobin of 8. Chemistries reveal a BUN of 17, creatinine of 3.7. Microbiology reveals the blood cultures are negative. MRSA is not detected. Review of orders reveals the patient to have cefepime. ASSESSMENT AND PLAN: A 77-year-old admitted with gastrointestinal bleeding, hypothermia, tachycardia, acute systolic congestive heart failure on top of chronic congestive heart failure and rectal bleeding. Today is day #3 of cefepime with negative cultures and the patient had endoscopy today for gastrointestinal bleed and a colonoscopy, results are pending and we will follow with you. Socrates Maldonado MD
[2018-07-27] MEDS: Cefepime 1gm in NS 100ml 1 GM/100 ML BAG IVPB SCH (20:09)
[2018-07-27] MEDS: POLYETHYLENE GLYCOL 3350 17 GM/Dose PACKET PO SCH (21:35)
--- NOTE | 2018-07-27 23:36 | CON ---
DATE: 07/27/2018 HISTORY OF PRESENT ILLNESS: This is a 77-year-old black male with a past medical history of hypertension, diabetes, renal failure on hemodialysis, coronary artery disease, peripheral artery disease, prostate cancer and history of left arm fistula, a pacemaker, prostate carcinoma. A resident of a [facility] and came to hospital. I was called to evaluate him for altered mental status. REVIEW OF SYSTEMS: In the hospital, the patient was noted to have hypothermia. The patient has bright red blood per rectum. PAST MEDICAL HISTORY: Diabetes, hypertension, chronic renal failure, on hemodialysis. ALLERGIES: NO KNOWN DRUG ALLERGIES. PHYSICAL EXAMINATION NEUROLOGICAL: The patient is very lethargic. I was called to evaluate the patient. The patient had EGD. Not able to wake up and follow simple commands. Spontaneous movement of extremities noted. Deep tendon reflexes 1+. Both plantars are downgoing. Sensory difficult to examine. IMPRESSION: A 77-year-old with a past medical history as above; end-stage renal disease and congestive heart failure, and the patient is encephalopathic and with superimposed end-stage renal disease. We will do a CT scan of the head without contrast. Further management as above. We will order the CT scan of the head without contrast. Guille Gerard MD
[2018-07-28 08:06] LABS: HEMOGLOBIN 8.6 g/dL (14.0-18.0); MEAN CELL VOLUME 87.1 fl (80.0-105.0); MEAN CORPUSCULAR HGB CONC 30.9 g/dl (31.0-37.0); MEAN PLATELET VOLUME 9.5 fl (7.0-11.0); RBC 3.19 10^6/uL (3.5-6.1); RED CELL DISTRIBUTION WIDTH 18.7 % (11.5-14.5); WHITE BLOOD COUNT 5.3 10^3/uL (4.5-11.0)
[2018-07-28 08:38] LABS: ALB/GLOB RATIO 0.9 (1.1-1.8); ALBUMIN 3.3 g/dL (3.0-4.8); CALCIUM 9.3 mg/dL (8.4-10.5)
--- NOTE | 2018-07-28 08:52 | PN ---
DATE: 07/28/2018 SUBJECTIVE: The patient is in bed, in no acute distress, seen earlier today in 277, bed 1. PHYSICAL EXAMINATION: VITAL SIGNS: Temperature is 98, blood pressure is 125/80, respiratory rate of 18. HEENT: Unremarkable. NECK: Supple. LUNGS: Have decreased breath sounds. HEART: Normal S1, S2. ABDOMEN: Soft, nontender. LABORATORY EXAMINATION: Reveals the patient's white count is 5.3. Chemistries are noted. Microbiology reveals the blood cultures are negative. MRSA screen is negative, and review of orders reveals the patient to be on cefepime. ASSESSMENT AND PLAN: A 77-year-old male admitted with gastrointestinal bleeding, hypothermia, tachycardia, acute systolic congestive heart failure on top of chronic congestive heart failure, and rectal bleeding. Today is day #4 of cefepime. All cultures negative, and we will discontinue the cefepime. No indication for antibiotics at this point. However, the patient is at risk for developing nosocomial infections. Socrates Maldonado MD
--- NOTE | 2018-07-28 09:04 | PQF ---
PROVIDER RESPONSE TEXT: Gi bleed hypothermia tachy acute chf REVIEWER QUERY TEXT: Anemia Type Anemia is documented in the Medical Record. Please specify the cause (includes suspected or probable cause) Such as: -- Due to acute blood loss -- Due to chronic blood loss -- Due to iron deficiency -- Due to postoperative blood loss -- Due to chronic disease -- Other, please specify The patient's Clinical Indicators include: Patient admitted for GI bleeding. Sigmoidoscopy found oozing rectal ulcer which was cauterized. H/H noted to be decreasing. There is documentation of anemia. Please specify if patient has acute blood loss anemia, other cause or etiology of anemia. Query created by: Annel Dan on 07/27/2018 2:14 PM Electronically signed by: Nacho Hernández DO 07/28/2018 9:01 AM
[2018-07-28] MEDS: [UNRECOGNIZED DRUG - REMARK] PO SCH (09:39)
--- NOTE | 2018-07-28 09:56 | CT ---
Date of service: 07/27/2018 PROCEDURE: CT HEAD WITHOUT CONTRAST. HISTORY: AMS COMPARISON: None available. TECHNIQUE: Axial computed tomography images were obtained through the head/brain without intravenous contrast. Radiation dose: Total exam DLP = 994.51 mGy-cm. This CT exam was performed using one or more of the following dose reduction techniques: Automated exposure control, adjustment of the mA and/or kV according to patient size, and/or use of iterative reconstruction technique. FINDINGS: HEMORRHAGE: No intracranial hemorrhage. BRAIN: There are mild chronic microangiopathic changes. There is no mass, mass effect or abnormal extra-axial fluid collection. There is no territorial infarction. The midline sagittal structures are normal.There are coarse atherosclerotic calcifications in the cavernous carotid arteries. VENTRICLES: There is mild age-related global parenchymal volume loss and proportionate enlargement of the ventricles and cortical sulci. CALVARIUM: There is no calvarial fracture or extracranial soft tissue swelling. PARANASAL SINUSES: There is complete opacification of the right frontal sinus and anterior ethmoid air cells. The remaining included paranasal sinuses are clear. MASTOID AIR CELLS: Predominantly clear. OTHER FINDINGS: None. IMPRESSION: No acute intracranial abnormality. Mild chronic microangiopathic changes and mild age-related global parenchymal volume loss. Acute and/or chronic right frontal and ethmoid sinusitis. Clinical follow-up is advised.
--- NOTE | 2018-07-28 10:13 | PQF ---
PROVIDER RESPONSE TEXT: No pneumonia REVIEWER QUERY TEXT: Rule Out Condition Clarification Pt has documented noted as ?rule out? or similar terminology such as suspected, pro bable, etc. Please clarify status of this condition: -Patient has condition -Condition was ruled out Please provide corresponding diagnosis for patient's clinical picture and associated treatment -Patient had condition which is now resolved -Other (please specify) -Clinically unable to determine -Unknown The patient's Clinical Indicators include: Patient admitted for GI bleeding, CHF. There is also documentation throughout the chart of "r/o pneumonia". CXR and CT abdomen/pelvis negati ve. Patient is receiving antibiotics. Please specify if pneumonia present, ruled out, undetermined. Query created by: Annel Dan on 07/27/2018 2:12 PM Electronically signed by: Nacho Hernández DO 07/28/2018 10:10 AM
--- NOTE | 2018-07-28 15:15 | PN ---
DATE: 07/28/2018 SUBJECTIVE: The patient is seen lying in bed, on dialysis, his edema has improved. He remains restless and mildly confused. His current medications include Aranesp, carvedilol, Ecotrin, MiraLax. His Protonix, Lipitor, Januvia, heparin have been on hold. OBJECTIVE: GENERAL: He is an elderly man who appears mildly confused. VITAL SIGNS: His blood pressure is 122/80 with a pulse of 66 in sinus, occasional PVCs, respirations are 16. He is afebrile. HEENT: No JVD. CHEST: Clear to auscultation anteriorly. HEART: PMI displaced laterally with soft tones noted. ABDOMEN: Soft, nontender with bowel sounds. EXTREMITIES: 1+ leg and arm edema. DIAGNOSTIC DATA: Potassium 3.9, BUN and creatinine 24 and 4.4, glucose 69. White count 5.3, hemoglobin and hematocrit 8.7 and 27.8 with platelet count 201,000. Last chest x-ray revealed persistent bilateral pleural effusions. IMPRESSION: 1. Decompensated congestive heart failure, hycyt-[id number]-[id number], systolic, still remains volume overloaded despite markedly intensified dialysis schedule. 2. Recent gastrointestinal bleeding. Evaluation in progress. 3. Known coronary artery disease, status post remote percutaneous coronary intervention. 4. Chronic renal failure, maintained on hemodialysis. 5. Severe left ventricular systolic dysfunction. 6. Confusional state, etiology uncertain, may have some degree of dementia at this time. RECOMMENDATIONS: His current cardiac medications should be continued as blood pressure allows. Overall conservative management appears most appropriate at this time. I will continue to follow and make further recommendations as needed. Guillermo Baker MD
--- NOTE | 2018-07-28 15:27 | PN ---
DATE: 07/28/2018 NEUROLOGY FOLLOWUP CHIEF COMPLAINT: Altered mental status. SUBJECTIVE: The patient was seen and examined at the bedside, following commands, had low blood sugar today of 69 this morning. His blood pressure is currently much better than before. Initially, he came in with low systolic and diastolic blood pressures. He has [id number] CHF. Moves all extremities. Follows simple commands. PAST MEDICAL HISTORY: History of end-stage renal disease, on hemodialysis; history of hyperphosphatemia; secondary hyperparathyroidism; hypertension; peripheral vascular disease; coronary artery disease; severe systolic CHF with a history of AICD. SOCIAL HISTORY: No illicit drug abuse, smoking, or drug abuse. ALLERGIES: NO KNOWN DRUG ALLERGIES. MEDICATIONS: Reviewed by nurses' reconciliation sheet. FAMILY HISTORY: Noncontributory. LABORATORY DATA: Sodium is 138, potassium of 3.9, chloride 97, carbon dioxide 31, BUN 24, creatinine 4.4, random glucose of 69. PHYSICAL EXAMINATION: GENERAL: The patient is sitting up in bed. No acute distress. VITAL SIGNS: Temperature 98.2, pulse rate of 66, blood pressure of 125/84, respiratory rate 18, and oxygen saturation 90% via nasal cannula. HEENT: Atraumatic and normocephalic. PERRLA. Extraocular muscles intact. NECK: Supple. No JVD noted. No adenopathy noted. LUNGS: Clear to auscultation. No adventitious sounds. HEART: S1 and S2. Normal rate and rhythm. No murmurs, rubs, or gallops. EXTREMITIES: Has ____ edema, but doing better. Chronic ____ stasis changes. NEUROLOGIC: The patient is alert, oriented to person and place, but not much to the year. Recall after 5 minutes is 0/3. Poor attention span. Slow thought process. Cranial nerves II through XII intact. Motor: Moves all extremities equally. Toes are downgoing bilaterally. Sensory exam: Decreased light touch and pinprick up to the calves bilaterally. Decreased vibration at the toes. DTRs are 2+ throughout. Coordination: Frxxiu-fk-ibgj is intact. Gait is deferred for now. IMPRESSION AND PLAN: Change in altered mental status is secondary to [id number] congestive heart failure with fluid overload in addition to transient cerebral hypoperfusion to the brain as well as metabolic encephalopathy component, superimposed underlying cognitive impairment. At this time, we recommend: 1. Avoid hypoglycemic events. Keep blood sugars between 140 to 180 and monitor electrolytes and correct accordingly. 2. Keep systolic blood pressure in 130s to 140s and diastolics in 70s to 80s. 3. Continue with aspirin 81 and Lipitor 40 for stroke prevention. 4. Physical therapy/occupational therapy evaluation. 5. Monitor his BUN and creatinine as per Nephrology. Thank you for this followup. Lonnie Gerard MD
--- NOTE | 2018-07-28 16:07 | PN ---
DATE: 07/28/2018 SUBJECTIVE: I saw him in dialysis today. The nurse had told me that he was not really waking up, he was very lethargic, and we are concerned about his diet. When I saw him in hemodialysis, he is wide awake, talking to me. I will do a swallow eval, order urine and blood cultures again. He is on dialysis. He was very weak and lethargic. He had a GI bleed with ulcer in the colon. He is on end-stage renal disease with hemodialysis. He has hypothermia and bilateral pleural effusion which are large. Pulmonary . I will see if Dr. Kelvin Cevallos wants to put in needle in there and drain them. He is on Tylenol, Toradol, Rocaltrol, Renagel, Protonix, MiraLax, Lipitor, Januvia, heparin, Ecotrin, Coreg, Colace, Aranesp. PHYSICAL EXAMINATION: GENERAL: At this time, he is alert, talking to me. He can move all four extremities. He is on dialysis. VITAL SIGNS: He has 98.3 temp, 66 pulse, 125/84 blood pressure, 18 respiratory rate, 99% O2 sat on nasal canula. HEAD: Atraumatic and normocephalic. HEART: Regular rate. LUNGS: Decreased breath sounds bilaterally. ABDOMEN: Soft. EXTREMITIES: No edema. LABORATORY DATA: He has 138 sodium, potassium 3.9, BUN 24, creatinine 4.4, GFR is 13, sugar 69, calcium 9.3, total bili is 0.7. AST is 23, ALT is 13, alk phos 118, total protein 7. White count 5.3, hemoglobin 8.6, hematocrit 27.8, and platelets are 201. INR is 1.91. ASSESSMENT AND PLAN: I will order a blood culture, a urine culture, and see if there is a possibility of putting a needle into his bilateral large pleural effusions, not sure if I will do it or not, he is so sick and lethargic. He does a swallow eval. We will watch him very closely. The patient had a gastrointestinal bleed. Nidia Hernández DO [facility] # [id number] MTDD
--- NOTE | 2018-07-28 20:28 | PN ---
DATE: 07/28/2018 PULMONARY PROGRESS NOTE SUBJECTIVE: The patient is comfortable, in no acute distress, having had hemodialysis yesterday. OBJECTIVE: VITAL SIGNS: Remain stable. The patient is afebrile, respiratory rate 18, blood pressure 124/74, O2 sat 99% on nasal cannula. HEENT: Normocephalic, atraumatic. NECK: Supple. No JVD. CARDIOVASCULAR: Regular rhythm, S1, S2 without murmur, gallop or rub. CHEST: Decrease in breath sounds. Minimal rhonchi and rales. No wheezing appreciated. GASTROINTESTINAL: Soft. Bowel sounds normoactive. : Within normal limits EXTREMITIES: Reveal no clubbing, cyanosis or edema. No evidence of DVT. NEUROLOGIC: Reveals no focal findings. SKIN: Dry;intact DIAGNOSTIC DATA: Chest x-ray done on 07/27/2018 shows bibasilar infiltrates and effusion with larger effusions than previously seen. CLINICAL IMPRESSION: 1. Findings consistent with renal insufficiency and renal failure. 2. Congestive heart failure. 3. Bilateral pleural effusions. 4. Doubtful pneumonia but cannot exclude at this time. 5. History of chronic obstructive pulmonary disease. PLAN: The patient needs more vigorous dialysis and diuresis. If possible will need to defer to Renal. Once the effusions have resolved, we can evaluate the pulmonary parenchyma underneath this area, obscured on x-ray. A CT of the chest might help as well. The majority of the patient's problems appear to be pleural effusion secondary to renal insufficiency and inadequate hemodialysis with fluid removal. We will discuss with primary doctor and Renal. Close followup is essential. Followup x-ray after the next hemodialysis, consider CT of the chest to rule out underlying pneumonitis. Herrera Covarrubias MD [facility]
[2018-07-28] MEDS: POLYETHYLENE GLYCOL 3350 17 GM/Dose PACKET PO SCH (22:40)
[2018-07-29] MEDS: POLYETHYLENE GLYCOL 3350 17 GM/Dose PACKET PO SCH ×2 (06:41→22:20)
[2018-07-29 07:48] LABS: HEMOGLOBIN 8.6 g/dL (14.0-18.0); MEAN CELL VOLUME 86.7 fl (80.0-105.0); MEAN CORPUSCULAR HEMOGLOBIN 27.2 pg (25.0-35.0); MEAN CORPUSCULAR HGB CONC 31.4 g/dl (31.0-37.0); MEAN PLATELET VOLUME 9.9 fl (7.0-11.0); RBC 3.16 10^6/uL (3.5-6.1); RED CELL DISTRIBUTION WIDTH 18.5 % (11.5-14.5); WHITE BLOOD COUNT 5.7 10^3/uL (4.5-11.0)
[2018-07-29 08:24] LABS: ALB/GLOB RATIO 0.8 (1.1-1.8); ALBUMIN 3.1 g/dL (3.0-4.8); CALCIUM 9.1 mg/dL (8.4-10.5)
[2018-07-29] MEDS: [UNRECOGNIZED DRUG - REMARK] PO SCH (09:50)
--- NOTE | 2018-07-29 11:05 | PN ---
DATE: 07/29/2018 SUBJECTIVE: The patient is in bed in no acute distress, nontoxic. PHYSICAL EXAMINATION: VITAL SIGNS: Temperature is 97, blood pressure is 115/60, respiratory rate of 18, heart rate of 80. HEENT: Unremarkable. NECK: Supple. LUNGS: Have decreased breath sounds. HEART: Normal S1, S2. ABDOMEN: Soft, nontender. LABORATORY EXAMINATION: Reveals a white count of 5.7, hemoglobin of 8. Coagulation is noted. Chemistries reveals a BUN of 24, creatinine of 4.4. Microbiology reveals the blood cultures are negative. Nares are negative. ASSESSMENT AND PLAN: This is a 77-year-old male who was seen earlier today in [facility], bed 1, admitted with gastrointestinal bleeding and hypothermia, tachycardia, and systemic inflammatory response syndrome with acute systolic congestive heart failure on top of chronic congestive heart failure and rectal bleeding now off of antibiotics, afebrile, cultures negative and the patient is at risk for developing nosocomial infections. Socrates Maldonado MD
--- NOTE | 2018-07-29 16:59 | CP.PCM.PN ---
Subjective - Date & Time of Evaluation Date of Evaluation: 07/29/18 Time of Evaluation: 16:58 - Subjective Subjective: Nephrology Consultation Note: Assessment: critical acute on chronic sys CHF with fluid overload/anasarca/ascites and pleural effusions GI bleed with gastritis and rectal ulcer 07/27/18 Hypertensive Chronic Kidney Disease (I12.0) End stage renal disease (N18.6) dependence on hemodialysis (Z99.2) (TTS) via AVF Anemia (D64.9), Hyperphosphatemia (E83.39), Secondary Hyperparathyroidism (E21.1), HTN (I12.0), PVD, CAD severe sys CHF, hx of AICD AMS Hypothermia Plan: continue with HD per TTS. PRBC as needed for anemia. on UMU with dialysis as last Hb <10 CHF optimization per cardiology continue with calcitriol BP ok Glycemic control, Dialysis consistent diet Physical Examination: General Appearance: uncomfortable, in no acute respiratory distress, co- operative . ill appearing Vitals reviewed and noted as below Head; Atraumatic, normocephalic ENT: no ulcers EYES: Pupils are equal, round and reactive to light accommodation. Eye muscles and extraocular movement intact. Sclera is anicteric. Neck; supple no lymphadenopathy, no thyromegaly or bruit Lungs: Normal respiratory rate/effort. Breath sounds bilateral reduced at bases Heart: Normal rate. s1s2 normal. No rub or gallop. Extremities: has thigh edema Neurological: Patient is confused lethargic and non-communicative Skin: Warm and dry. Abdomen: Abdomen is soft. Bowel sounds +. Objective - Vital Signs/Intake and Output Vital Signs (last 24 hours): Temp Pulse Resp BP Pulse Ox 97.4 F L 76 18 97/51 L 100 07/29/18 12:00 07/29/18 14:00 07/29/18 12:00 07/29/18 12:00 07/29/18 06:00 Intake and Output: 07/29/18 07/29/18 06:59 18:59 Intake Total 0 Balance 0 - Medications Medications: Current Medications Acetaminophen (Tylenol 325mg Tab) 650 mg PO Q4H PRN PRN Reason: Fever >100.4 F Last Admin: 07/26/18 23:51 Dose: 650 mg Albumin Human (Albumin Human 25% (12.5 Gm/50 Ml)) 25 gm IV TTS PRN PRN Reason: Other Aspirin (Ecotrin) 81 mg PO DAILY [facility] Last Admin: 07/29/18 09:49 Dose: 81 mg Atorvastatin Calcium (Lipitor) 40 mg PO DAILY [facility] Last Admin: 07/29/18 09:49 Dose: 40 mg Calcitriol (Rocaltrol) 0.25 mcg PO DAILY [facility] Last Admin: 07/28/18 15:00 Dose: Not Given Carvedilol (Coreg) 12.5 mg PO BID [facility] Last Admin: 07/29/18 09:49 Dose: 12.5 mg Darbepoetin Jaxon (Aranesp) 60 mcg IVP QWK [facility] Last Admin: 07/26/18 10:19 Dose: 60 mcg Docusate Sodium (Colace) 100 mg PO BID [facility] Last Admin: 07/29/18 09:49 Dose: 100 mg Heparin Sodium (Porcine) (Heparin) 5,000 units SC Q8H [facility]; Protocol Last Admin: 07/24/18 18:31 Dose: Not Given Non-Formulary Medication (B Complex W-C No.20/Folic Acid [Nephrocaps Softgel]) 1 mg PO DAILY [facility] Last Admin: 07/29/18 09:50 Dose: Not Given Pantoprazole Sodium (Protonix Inj) 40 mg IVP DAILY [facility] Last Admin: 07/29/18 09:48 Dose: 40 mg Polyethylene Glycol (Miralax) 17 gm PO HS [facility] Last Admin: 07/29/18 06:41 Dose: Not Given Sevelamer HCl (Renagel) 800 mg PO AC [facility] Last Admin: 07/29/18 12:48 Dose: Not Given Sitagliptin Phosphate (Januvia) 25 mg PO DAILY [facility] Last Admin: 07/29/18 09:49 Dose: 25 mg - Labs Labs: 07/29/18 07:00 07/29/18 07:00 PT 21.6 SECONDS (9.4-12.5) H 07/27/18 08:30 INR 1.91 07/27/18 08:30 APTT 39.7 Seconds (26.9-38.3) H 07/24/18 00:00
--- NOTE | 2018-07-29 19:12 | PN ---
DATE: 07/29/2018 SUBJECTIVE: He is actually resting comfortably in bed today, this is the one of the better days I have seen him. He is doing well. I am hoping to keep this up tomorrow. I will discharge him back to [facility] maybe even for some ARACELI, which is recommended by Physical Therapy. He has multiple issues going on. He had a GI bleed. He has a colon ulcer found on flex sig. He was hypothermic and end-stage renal disease, on dialysis. He has pneumonia, CHF, pleural effusions bilaterally. He had SIRS, but I think he is doing quite well as best I have seen him 2 days in a row. He is being seen by GI, Cardiopulmonary, Infectious Disease, Interventional Vascular, and Renal. MEDICATIONS: He is on albumin, Aranesp, Nephrocaps, Colace, Coreg, Ecotrin, heparin, Januvia, Lipitor, MiraLax, Protonix, Renagel, Rocaltrol, Toradol, and Tylenol. PHYSICAL EXAMINATION: VITAL SIGNS: He has a 97.4 temperature, 80 pulse, 97/51 blood pressure, 18 respiratory rate, and 100% O2 sat. GENERAL: He is actually more alert and more appropriate today. He was lethargic in the beginning of this day. HEENT: His head is atraumatic, normocephalic. He is looking at me and smiling. He is having a conversation with me which is good. HEART: Regular rate. LUNGS: Clear to auscultation. ABDOMEN: Soft, obese. EXTREMITIES: No edema. ASSESSMENT AND PLAN: He is being seen by Infectious Disease and Neurology and GI. He has multiple issues. He has gastrointestinal bleeding with colon ulcer, hypothermia, tachycardia, systemic inflammatory response syndrome, acute systolic congestive heart failure on top of his chronic aggressive heart failure, rectal bleeding, and skin ulcers. I am hoping to discharge him back to [facility] for ARACELI and physical therapy. Continue aggressive treatment and care on William Caro. Nacho Hernández DO
[2018-07-30 05:45] VITALS: RESP 20; TEMP 98.3; O2SAT 100
[2018-07-30 07:17] LABS: HEMOGLOBIN 9.1 g/dL (14.0-18.0); MEAN CELL VOLUME 87.2 fl (80.0-105.0); MEAN CORPUSCULAR HEMOGLOBIN 27.7 pg (25.0-35.0); MEAN CORPUSCULAR HGB CONC 31.8 g/dl (31.0-37.0); MEAN PLATELET VOLUME 10.6 fl (7.0-11.0); RBC 3.28 10^6/uL (3.5-6.1); RED CELL DISTRIBUTION WIDTH 18.9 % (11.5-14.5); WHITE BLOOD COUNT 7.7 10^3/uL (4.5-11.0)
[2018-07-30 08:28] LABS: ALB/GLOB RATIO 0.8 (1.1-1.8); ALBUMIN 3.3 g/dL (3.0-4.8); CALCIUM 9.1 mg/dL (8.4-10.5)
--- NOTE | 2018-07-30 09:59 | PN ---
DATE: 07/30/2018 PULMONARY NOTE SUBJECTIVE: The patient appears comfortable this morning. He is not short of breath at rest. OBJECTIVE: VITALS: Temperature 98.3, pulse 91, respirations 18/20, blood pressure 128/72. Oxygen saturation on nasal cannula - 100%. HEENT: Normocephalic, atraumatic. No JVD. CARDIOVASCULAR: Systolic ejection murmur at the lower left sternal border. Positive S3 gallop. LUNGS: Decreased breath sounds at the bases. No rhonchi. No wheezing. EXTREMITIES: Positive for edema. No cyanosis, no clubbing. Calves are nontender to palpation. GASTROINTESTINAL: Abdomen is soft, nontender, and nondistended. Bowel sounds are positive. SKIN: No acute rash. NEUROLOGIC: Limited at the present time. IMPRESSION: 1. Acute congestive heart failure. 2. Bilateral pleural effusions. 3. End-stage renal disease. 4. Cardiomyopathy. 5. Anemia. PLAN: The patient appears very comfortable this morning. He is not short of breath at rest. He does state to feeling better overall. I did discuss the case with the night nurse at length. The night nurse stated the patient had an uneventful night. On physical exam, there is no significant bronchospasm noted. In addition, there is no significant alveolar arterial gradient. Oxygen saturation on nasal cannula is 100%. Repeat films have been ordered for today. I will check them when feasible. Inputs by Renal, Cardiology, and Infectious Disease are also noted. Clinical status of the patient does appear improved - compared to the initial presentation. However, given the above, the future status/prognosis of this patient does remain guarded. I will discuss the above with Dr. Hernández later this morning. Jose R Clark MD [facility]
--- NOTE | 2018-07-30 10:06 | CP.PCM.PN ---
<Sudarshan Yo - Last Filed: 07/30/18 10:03> Subjective - Date & Time of Evaluation Date of Evaluation: 07/30/18 Time of Evaluation: 08:05 - Subjective Subjective: PGY6 GI Fellow Progress Note Patient seen and examined bedside this morning. The patient states that he is feeling well but remains confused. Discussed case with nursing staff who did not note any further rectal bleeding. 12 system ROS performed and negative except where stated Objective - Vital Signs/Intake and Output Vital Signs (last 24 hours): Temp Pulse Resp BP Pulse Ox 98.3 F 91 H 20 128/72 100 07/30/18 05:45 07/30/18 05:45 07/30/18 05:45 07/30/18 05:45 07/30/18 05:45 Intake and Output: 07/30/18 07/30/18 06:59 18:59 Intake Total 900 Balance 900 - Medications Medications: Current Medications Acetaminophen (Tylenol 325mg Tab) 650 mg PO Q4H PRN PRN Reason: Fever >100.4 F Last Admin: 07/26/18 23:51 Dose: 650 mg Albumin Human (Albumin Human 25% (12.5 Gm/50 Ml)) 25 gm IV TTS PRN PRN Reason: Other Aspirin (Ecotrin) 81 mg PO DAILY [facility] Last Admin: 07/29/18 09:49 Dose: 81 mg Atorvastatin Calcium (Lipitor) 40 mg PO DAILY [facility] Last Admin: 07/29/18 09:49 Dose: 40 mg Calcitriol (Rocaltrol) 0.25 mcg PO DAILY [facility] Last Admin: 07/28/18 15:00 Dose: Not Given Carvedilol (Coreg) 12.5 mg PO BID [facility] Last Admin: 07/29/18 17:59 Dose: Not Given Darbepoetin Jaxon (Aranesp) 60 mcg IVP QWK [facility] Last Admin: 07/26/18 10:19 Dose: 60 mcg Docusate Sodium (Colace) 100 mg PO BID [facility] Last Admin: 07/29/18 17:59 Dose: Not Given Heparin Sodium (Porcine) (Heparin) 5,000 units SC Q8H [facility]; Protocol Last Admin: 07/24/18 18:31 Dose: Not Given Non-Formulary Medication (B Complex W-C No.20/Folic Acid [Nephrocaps Softgel]) 1 mg PO DAILY [facility] Last Admin: 07/29/18 09:50 Dose: Not Given Pantoprazole Sodium (Protonix Inj) 40 mg IVP DAILY [facility] Last Admin: 07/29/18 09:48 Dose: 40 mg Polyethylene Glycol (Miralax) 17 gm PO HS [facility] Last Admin: 07/29/18 22:20 Dose: 17 gm Sevelamer HCl (Renagel) 800 mg PO AC [facility] Last Admin: 07/30/18 08:36 Dose: 800 mg Sitagliptin Phosphate (Januvia) 25 mg PO DAILY [facility] Last Admin: 07/29/18 09:49 Dose: 25 mg - Labs Labs: 07/30/18 06:40 07/30/18 07:50 PT 21.6 SECONDS (9.4-12.5) H 07/27/18 08:30 INR 1.91 07/27/18 08:30 APTT 39.7 Seconds (26.9-38.3) H 07/24/18 00:00 - Constitutional Appears: No Acute Distress, Chronically Ill - Eye Exam Eye Exam: EOMI, PERRL - ENT Exam ENT Exam: Mucous Membranes Moist - Respiratory Exam Respiratory Exam: Clear to Ausculation Bilateral. absent: Rales, Rhonchi, Wheezes - Cardiovascular Exam Cardiovascular Exam: RRR, +S1, +S2 - GI/Abdominal Exam GI & Abdominal Exam: Soft, Normal Bowel Sounds. absent: Distended, Firm, Guar ding, Rigid, Tenderness, Organomegaly - Extremities Exam Additional comments: chronic edema LE B/L - Neurological Exam Neurological Exam: Altered, Awake - Psychiatric Exam Psychiatric exam: Normal Affect, Normal Mood - Skin Skin Exam: Dry, Warm Assessment and Plan - Assessment and Plan (Free Text) Assessment: Patient is a 77yo male with PMHx significant for ESRD on HD T//, PVD, HTN, systolic CHF with EF 20%, chronic anemia and suspected dementia who presented to the ED from [place] with complaint of bloody stool -Hematochezia 2/2 rectal ulcer - suspect stercoral ulceration -Ascites -Altered mental status -CHF -ESRD -PVD Plan: -No further hematochezia noted -S/P EGD/Colnoscopy with rectal ulcer noted - s/p epinephrine inj and cautery -H/H stable -Patient remains confused - neurology consult pending -Patient will benefit from ongoing stool softeners - Miralax and Colace ordered -Diet as tolerated -No further recommendations at this point - please reconsult as needed <Eusebio Han Y - Last Filed: 07/30/18 10:18> Objective - Vital Signs/Intake and Output Vital Signs (last 24 hours): Temp Pulse Resp BP Pulse Ox 98.3 F 91 H 20 128/72 100 07/30/18 05:45 07/30/18 05:45 07/30/18 05:45 07/30/18 05:45 07/30/18 05:45 Intake and Output: 07/30/18 07/30/18 06:59 18:59 Intake Total 900 Balance 900 - Medications Medications: Current Medications Acetaminophen (Tylenol 325mg Tab) 650 mg PO Q4H PRN PRN Reason: Fever >100.4 F Last Admin: 07/26/18 23:51 Dose: 650 mg Albumin Human (Albumin Human 25% (12.5 Gm/50 Ml)) 25 gm IV TTS PRN PRN Reason: Other Aspirin (Ecotrin) 81 mg PO DAILY [facility] Last Admin: 07/29/18 09:49 Dose: 81 mg Atorvastatin Calcium (Lipitor) 40 mg PO DAILY [facility] Last Admin: 07/29/18 09:49 Dose: 40 mg Calcitriol (Rocaltrol) 0.25 mcg PO DAILY [facility] Last Admin: 07/28/18 15:00 Dose: Not Given Carvedilol (Coreg) 12.5 mg PO BID [facility] Last Admin: 07/29/18 17:59 Dose: Not Given Darbepoetin Jaxon (Aranesp) 60 mcg IVP QWK [facility] Last Admin: 07/26/18 10:19 Dose: 60 mcg Docusate Sodium (Colace) 100 mg PO BID [facility] Last Admin: 07/29/18 17:59 Dose: Not Given Heparin Sodium (Porcine) (Heparin) 5,000 units SC Q8H [facility]; Protocol Last Admin: 07/24/18 18:31 Dose: Not Given Non-Formulary Medication (B Complex W-C No.20/Folic Acid [Nephrocaps Softgel]) 1 mg PO DAILY [facility] Last Admin: 07/29/18 09:50 Dose: Not Given Pantoprazole Sodium (Protonix Inj) 40 mg IVP DAILY [facility] Last Admin: 07/29/18 09:48 Dose: 40 mg Polyethylene Glycol (Miralax) 17 gm PO HS [facility] Last Admin: 07/29/18 22:20 Dose: 17 gm Sevelamer HCl (Renagel) 800 mg PO AC [facility] Last Admin: 07/30/18 08:36 Dose: 800 mg Sitagliptin Phosphate (Januvia) 25 mg PO DAILY [facility] Last Admin: 07/29/18 09:49 Dose: 25 mg - Labs Labs: 07/30/18 06:40 07/30/18 07:50 PT 21.6 SECONDS (9.4-12.5) H 07/27/18 08:30 INR 1.91 07/27/18 08:30 APTT 39.7 Seconds (26.9-38.3) H 07/24/18 00:00 Attending/Attestation - Attestation I have fully participated in the care of the patient.: Yes I have reviewed all pertinent clinical information, including history, physical exam and plan: Yes Notes (Text): 07/30/18 10:16 ESRD on HD CHF PVD Dementia Rectal bleeding - s/p sigmoidoscopy on 07/27 showing bleeding rectal ulcerated region, s/p injection and thermal therapy - Diet as tolerated - H/H stable, no further episodes of rectal bleeding noted - Maintain stool softner therapy - Follow up pulmonary and neurology recommendations - No further planned GI interventions, will sign off case. Please reconsult as necessary, thank you.
--- NOTE | 2018-07-30 10:41 | RAD ---
Date of service: 07/30/2018 PROCEDURE: Chest four views HISTORY: r/o pneumonia COMPARISON: TECHNIQUE: Four views FINDINGS: Moderate size bilateral pleural effusions are seen. The effusions do not demonstrate layering. Moderate cardiomegaly and vascular congestion. Aortic calcification IMPRESSION: Moderate size bilateral pleural effusions are seen. The effusions do not demonstrate layering.
--- NOTE | 2018-07-30 11:16 | PN ---
DATE: 07/30/2018 SUBJECTIVE: The patient is seen lying in bed, on telemetry. He is somnolent, but arousable. He denies any chest pain or dyspnea at rest. CURRENT MEDICATIONS: Include Aranesp, carvedilol 12.5 mg b.i.d., Ecotrin once daily, subcutaneous heparin, Januvia, Lipitor, MiraLax, Protonix, Renagel, calcitriol. OBJECTIVE: GENERAL: He is an elderly man who appears comfortable. VITAL SIGNS: His blood pressure is 128/70 with pulse of 90 and sinus, respirations are 14. He is afebrile. HEENT: No JVD. CHEST: Bilateral scattered rhonchi. HEART: PMI displaced laterally with soft tones noted. Systolic murmur present at left sternal border. ABDOMEN: Soft, nontender with bowel sounds. EXTREMITIES: 1+ left upper extremity edema. DIAGNOSTIC DATA: Potassium is 4.1. BUN and creatinine 25 and 4.5. White count 7.7, hemoglobin and hematocrit 9.1 and 28.6 with platelet count 191,000. IMPRESSION: 1. Decompensated congestive heart failure, [id number] systolic, slowly improving with intensified dialysis. 2. Recent gastrointestinal bleeding. Hemoglobin now stable. 3. Known coronary disease, status post remote percutaneous coronary intervention. 4. Chronic renal failure, maintained on hemodialysis. 5. Severe left ventricular systolic dysfunction. RECOMMENDATIONS: Continued conservative cardiac management is advised at the present time. From a cardiac standpoint, he is stable for transfer to a rehab facility once medically cleared. Will continue to follow as an outpatient as needed. Guillermo Baker MD
--- NOTE | 2018-07-30 12:11 | CP.PCM.PN ---
Subjective - Date & Time of Evaluation Date of Evaluation: 07/30/18 Time of Evaluation: 12:09 - Subjective Subjective: Nephrology Consultation Note: Assessment: stable acute on chronic sys CHF with fluid overload/anasarca/ascites and pleural effusions GI bleed with gastritis and rectal ulcer 07/27/18 Hypertensive Chronic Kidney Disease (I12.0) End stage renal disease (N18.6) dependence on hemodialysis (Z99.2) (TTS) via AVF Anemia (D64.9), Hyperphosphatemia (E83.39), Secondary Hyperparathyroidism (E21.1), HTN (I12.0), PVD, CAD severe sys CHF, hx of AICD AMS Hypothermia Plan: continue with HD per TTS. Continue with Nephrovite 1 tab/day. extra UF today. volume status better clinically. his Wt today 75.3 Kgs on bedscale. outpt EDW was 86 Kgs PRBC as needed for anemia. on UMU with dialysis as last Hb <10 CHF optimization per cardiology continue with calcitriol BP control, usually on low side. hence, not on acei/arb Glycemic control, Dialysis consistent diet Further work up/management as per primary team Dose meds/antibiotics (if needed) for ESRD status. Avoid fleets enema/magnesium based laxatives. d/c actos in view of CHF. added januvia 25 mg/d GI ID Neuro eval ongoing Thanks for allowing me to participate in care of your patient. Will follow patient with you. Please call if any Qs. had d/w team Dr Kurt Martinez Office: [phone] CC; dark stool reason for consult: ESRD and fluid management HPI: Pt is a 77 M with hx of ESRD on hemodialysis (TTS) via AVF, last dialysis sat, chronic anemia, hyperphosphatemia, secondary hyperparathyroidism, PVD, CAD, hypertension severe sys CHF hx of AICD presented with complaints of blood on stool and dark stool Renal consult requested for ESRD management. pt on HD x 5 years he feels sick with fatigue and tiredness has some SOB as well ROS: pt feels better. denies SOB, chest pain Physical Examination: seen during HD General Appearance: comfortable, in no acute respiratory distress, co-operative . better appearing, smiling Vitals reviewed and noted as below Head; Atraumatic, normocephalic ENT: no ulcers no thrush. Tongue is midline. Oropharynx: no rash or ulcers. EYES: Pupils are equal, round and reactive to light accommodation. Eye muscles and extraocular movement intact. Sclera is anicteric. Neck; supple no lymphadenopathy, no thyromegaly or bruit Lungs: Normal respiratory rate/effort. Breath sounds bilateral reduced at bases Heart: Normal rate. s1s2 normal. No rub or gallop. Extremities: thigh edema better. No varicose veins. chronic hyperpigmented stasis changes + Neurological: Patient is awake alert and confusion is better. not oriented Skin: Warm and dry. Normal turgor. No rash. Palpitation: Normal elasticity for age Abdomen: Abdomen is soft. Bowel sounds +. There is no abdominal tenderness, no guarding/rigidity or organomegaly Psych:unable MSK: no joint tenderness or swelling. Digits and nails normal, no deformity : kidney or bladder not palpable Access: AVF Labs/imaging reviewed. Past medical history, past surgical history, family history, social history, allergy reviewed and noted as below Family Hx: no hx of CKD. Non contributory Objective - Vital Signs/Intake and Output Vital Signs (last 24 hours): Temp Pulse Resp BP Pulse Ox 98.3 F 91 H 20 128/72 100 07/30/18 05:45 07/30/18 05:45 07/30/18 05:45 07/30/18 05:45 07/30/18 05:45 Intake and Output: 07/30/18 07/30/18 06:59 18:59 Intake Total 900 Balance 900 - Medications Medications: Current Medications Acetaminophen (Tylenol 325mg Tab) 650 mg PO Q4H PRN PRN Reason: Fever >100.4 F Last Admin: 07/26/18 23:51 Dose: 650 mg Aspirin (Ecotrin) 81 mg PO DAILY [facility] Last Admin: 07/30/18 10:39 Dose: 81 mg Atorvastatin Calcium (Lipitor) 40 mg PO DAILY [facility] Last Admin: 07/30/18 10:39 Dose: 40 mg Calcitriol (Rocaltrol) 0.25 mcg PO DAILY [facility] Last Admin: 07/28/18 15:00 Dose: Not Given Carvedilol (Coreg) 12.5 mg PO BID [facility] Last Admin: 07/29/18 17:59 Dose: Not Given Darbepoetin Jaxon (Aranesp) 60 mcg IVP QWK [facility] Last Admin: 07/26/18 10:19 Dose: 60 mcg Docusate Sodium (Colace) 100 mg PO BID [facility] Last Admin: 07/30/18 10:39 Dose: 100 mg Heparin Sodium (Porcine) (Heparin) 5,000 units SC Q8H [facility]; Protocol Last Admin: 07/24/18 18:31 Dose: Not Given Non-Formulary Medication (B Complex W-C No.20/Folic Acid [Nephrocaps Softgel]) 1 mg PO DAILY [facility] Last Admin: 07/29/18 09:50 Dose: Not Given Pantoprazole Sodium (Protonix Inj) 40 mg IVP DAILY [facility] Last Admin: 07/30/18 10:39 Dose: 40 mg Polyethylene Glycol (Miralax) 17 gm PO HS [facility] Last Admin: 07/29/18 22:20 Dose: 17 gm Sevelamer HCl (Renagel) 800 mg PO AC [facility] Last Admin: 07/30/18 08:36 Dose: 800 mg Sitagliptin Phosphate (Januvia) 25 mg PO DAILY [facility] Last Admin: 07/30/18 10:39 Dose: 25 mg - Labs Labs: 07/30/18 06:40 07/30/18 07:50 PT 21.6 SECONDS (9.4-12.5) H 07/27/18 08:30 INR 1.91 07/27/18 08:30 APTT 39.7 Seconds (26.9-38.3) H 07/24/18 00:00
[2018-07-30 13:50] VITALS: PULSE 85
[2018-07-30] MEDS: [UNRECOGNIZED DRUG - REMARK] PO SCH (15:22)
[2018-07-30 15:27] VITALS: BP 98/56
--- NOTE | 2018-07-30 19:25 | PN ---
DATE: 07/30/2018 SUBJECTIVE: The patient is seen earlier today in 276, bed . No fevers, no chills. PHYSICAL EXAMINATION VITAL SIGNS: On exam temperature is 98, blood pressure is 100/60 and respiratory 16. HEENT: Unremarkable. NECK: Supple. LUNGS: Have decreased breath sounds. HEART: Normal S1 and S2. ABDOMEN: Soft. LABORATORY EXAMINATION: Reveals a white count of 7.7 and hemoglobin of 9. BUN of 25 and creatinine is 4.5. Laboratory is noted and microbiology reveals the blood cultures are negative and nares MRSA is not detected. ASSESSMENT AND PLAN: This is a 77-year-old male who was seen earlier today in 276, bed 1, admitted with gastrointestinal bleed, hypothermia and systemic inflammatory response syndrome with acute systolic congestive heart failure on top of chronic congestive heart failure with rectal bleeding. Currently now off of antibiotics, afebrile and we will follow with you. The patient for possible discharge. Socrates Maldonado MD
--- NOTE | 2018-07-30 23:25 | DS ---
DISCHARGE SUMMARY He is resting comfortably in bed. He is actually more alert. He is doing well with dialysis. He is eating well. In good spirits. No chest pain or shortness of breath. No abdominal pain. He is on Aranesp, vitamins, Colace, Coreg, Ecotrin, Januvia, Lipitor, MiraLax, Protonix, Renagel, and Glucotrol. PHYSICAL EXAMINATION GENERAL: He is very alert today. He is smiling at me. VITAL SIGNS: He has a 98.3 temperature, 92 pulse, 120/72 blood pressure, 20 respiratory rate, and 100% O2 sat on nasal cannula. HEAD: Atraumatic, normocephalic. HEART: Regular rate. LUNGS: Decreased breath sounds. ABDOMEN: Soft. EXTREMITIES: No edema. LABORATORY DATA: He has a 7.7 white count, 9.1 hemoglobin, 28.6 hematocrit with 199 platelets. He has a 135 sodium, potassium 4.7, BUN 25, creatinine is 4.5 on dialysis, GFR is 13, sugar is 135, calcium is 9.1, total bili is 0.5. AST is 20, ALT is 8, alk phos 114, total protein 7.1. ASSESSMENT AND PLAN: I am hoping for a discharge to a long-term care, possibly [facility]. He is being seen by Renal, Infectious Disease, Neurology, Pulmonary, a bunch of doctors. He has a gastrointestinal bleed with a colon ulcer, hypothermia, SIRS (systemic inflammatory response syndrome), acute systolic congestive heart failure, rectal bleed. Hopefully we could discharge him to a long-term care facility. Nacho Hernández DO
[2018-07-31] MEDS ORDERED: Pantoprazole 40 mg Susp UD PO SCH (07:30)
== END 2018-07-30 16:36 | DRG 393 ==
LOC: ED 23:31 → ERH 07-24 03:53 → 2RNO 07-24 06:09 → 2RSO 07-25 03:18 → OBSVTOIN 07-25 08:51 → 2RSO 07-28 20:03
PROVIDERS: ADMIT Family Medicine; ATTEND Family Medicine
PROC: 5A1D70Z Performance of Urinary Filtration, Intermittent, Less than 6 Hours Per Day (ICD-10-PCS; 2018-07-24)
PROC: 5A1D70Z Performance of Urinary Filtration, Intermittent, Less than 6 Hours Per Day (ICD-10-PCS; 2018-07-25)
PROC: 5A1D70Z Performance of Urinary Filtration, Intermittent, Less than 6 Hours Per Day (ICD-10-PCS; 2018-07-26)
PROC: 0DB68ZX Excision of Stomach, Via Natural or Artificial Opening Endoscopic, Diagnostic (ICD-10-PCS; 2018-07-27)
PROC: 5A1D70Z Performance of Urinary Filtration, Intermittent, Less than 6 Hours Per Day (ICD-10-PCS; 2018-07-27)
PROC: 3E0H8GC Introduction of Other Therapeutic Substance into Lower GI, Via Natural or Artificial Opening Endoscopic (ICD-10-PCS; principal; 2018-07-27 10:00)
PROC: 0DJD8ZZ Inspection of Lower Intestinal Tract, Via Natural or Artificial Opening Endoscopic (ICD-10-PCS; 2018-07-27 10:00)
PROC: 5A1D70Z Performance of Urinary Filtration, Intermittent, Less than 6 Hours Per Day (ICD-10-PCS; 2018-07-28)
PROC: 5A1D70Z Performance of Urinary Filtration, Intermittent, Less than 6 Hours Per Day (ICD-10-PCS; 2018-07-30)
DX: K62.6 Ulcer of anus and rectum (principal); N18.6 End stage renal disease; I50.23 Acute on chronic systolic (congestive) heart failure; G93.41 Metabolic encephalopathy; K62.5 Hemorrhage of anus and rectum; I13.2 Hypertensive heart and chronic kidney disease with heart failure and with stage 5 chronic kidney disease, or end stage renal disease; D62 Acute posthemorrhagic anemia; R18.8 Other ascites; N25.81 Secondary hyperparathyroidism of renal origin; E87.2 Acidosis; R65.10 Systemic inflammatory response syndrome (SIRS) of non-infectious origin without acute organ dysfunction; I42.9 Cardiomyopathy, unspecified; K44.9 Diaphragmatic hernia without obstruction or gangrene; K29.70 Gastritis, unspecified, without bleeding; K21.9 Gastro-esophageal reflux disease without esophagitis; E11.51 Type 2 diabetes mellitus with diabetic peripheral angiopathy without gangrene; E11.22 Type 2 diabetes mellitus with diabetic chronic kidney disease; N40.0 Benign prostatic hyperplasia without lower urinary tract symptoms; I25.10 Atherosclerotic heart disease of native coronary artery without angina pectoris; F03.90 Unspecified dementia, unspecified severity, without behavioral disturbance, psychotic disturbance, mood disturbance, and anxiety; E83.39 Other disorders of phosphorus metabolism; R68.0 Hypothermia, not associated with low environmental temperature; J44.9 Chronic obstructive pulmonary disease, unspecified; Z99.2 Dependence on renal dialysis; Z85.46 Personal history of malignant neoplasm of prostate; Z95.810 Presence of automatic (implantable) cardiac defibrillator; Z95.5 Presence of coronary angioplasty implant and graft; Z79.84 Long term (current) use of oral hypoglycemic drugs; Z79.82 Long term (current) use of aspirin